=== PATIENT | male | born 1940 | race Caucasian/White ===

== ENCOUNTER 2017-02-20 06:52 | Inpatient (IN) | payer OTHER, MEDICARE ==
[~2017-02-20] VITALS: Ht 172.7 cm; Wt 89.8 kg
[~2017-02-20 06:52] MED LIST: AMLODIPINE BESY10 M1 PO; ASPIRIN CHILDRE81 MG PO; ASPIRIN81 M4 PO; AZOR 5 MG-20 MG1 TAB PO; BENICAR40 M1 PO; BRILINTA90 MG PO; CARDIZEM I125 MG/25 IV; CIPRO500 M1 PO; COREG3.125 MG PO; COREG6.25 M1 PO; COZAAR 25MG TAB25 MG PO; COZAAR100 M1 PO; FINASTERIDE5 M1 PO; FLOMAX0.4 M1 PO; HEPARIN 2525000 UNI1 IV; LASIX 100M100 MG/10 IV; LOPRESSOR 12.12.5 MG PO; PREDNISONE 10MG10 M1 PO; PROAIR HFA0.09 MG/Ac INH; PROSCAR5 M1 PO; SYMBICORT 160/41 PUF INH; TAMSULOSIN HCL0.4 M1 PO; VENTOLIN1 PUF INH
--- NOTE | 2017-02-20 07:20 | ED AMS/SEIZURE/WEAK/DIZZY ---
History of Present Illness General Chief Complaint: Fall Stated Complaint: BIBA FALL Source: patient, family, old records, EMS Exam Limitations: no limitations Vital Signs & Intake/Output Vital Signs & Intake/Output Vital Signs Date Time Temp Pulse Resp B/P B/P Pulse O2 O2 Flow FiO2 Mean Ox Delivery Rate 02/21 824 98.4 51 20 150/68 95 Nasal 2.0L Cannula 02/20 0741 95 Nasal 2.0L Cannula 02/20 0737 95 Nasal 2.0L Cannula 02/20 0654 97.8 55 20 156/74 100 Room Air Allergies Coded Allergies: shellfish derived (Severe, UNKNOWN 02/20/17) acetaminophen (From PERCOCET) (UNKNOWN 02/20/17) oxycodone (From PERCOCET) (UNKNOWN 02/20/17) Reconcile Medications Amlodipine Besylate 10 MG TABLET 1 TAB PO DAILY blood pressure (Reported) Aspirin (Aspirin*) 81 MG TAB.CHEW 1 TAB PO DAILY HEART HEALTH (Reported) Carvedilol 6.25 MG TABLET 1 TAB PO BID HEART (Reported) Docusate Sodium (Stool Softener) 100 MG CAPSULE 1 CAP PO DAILY PRN CONSTIPATION (Reported) Famotidine 20 MG TABLET 1 TAB PO BID PRN GI (Reported) Finasteride (Proscar) 5 MG TABLET 1 TAB PO DAILY prostate (Reported) Olmesartan Medoxomil (Benicar) 40 MG TABLET 1 TAB PO DAILY blood pressure ( Reported) Solifenacin Succinate (Vesicare) 5 MG TABLET 1 TAB PO DAILY BLADDER (Reported ) Tamsulosin HCl (Flomax) 0.4 MG CAP.ER.24H 1 CAP PO DAILY prostate (Reported) Umeclidinium Brm/Vilanterol Tr (Anoro Ellipta 62.5-25 Mcg INH) 62.5 MCG-25 MCG/ ACTUATION BLST.W.DEV 1 PUFF INH DAILY BREATHING PROBLEMS (Reported) Triage Note: PT BIBA FROM HOME C/O FALL. PER EMS PT AWOKE THIS MORNING WHILE GETTING OUT OF BED PT GRASPED ONTO HIS WALKER, FELT DIZZY, AND HAD A WITNESSED FALL. PER PTS WHO WITNESSED FALL -LOC, -BLOOD THINNERS. PT STATES HE HIT THE RIGHT SIDE OF HIS FACE ON THE DOOR WHILE LANDING ON RIGHT SIDE FROM FALL. PT A&OX3, PT ARRIVES WITH EXPIRATORY WHEEZING. Triage Nurses Notes Reviewed? yes HPI: Patient was getting out of bed and he grabbed his walker and then fell. Patient states that he hit his head on the door on the way down. There was no loss of consciousness. EMS states that the patient told them that he felt dizzy when he stood up. The patient currently adamantly denies. Patient states he just lost his balance when he stood up. Patient states that he is due for carotid endarterectomy next week. Patient had a CVA a month and a half ago. Patient has known ischemic cardiomyopathy. Patient denies any chest pain or palpitations. Patient states that he has been having increasing wheezing, shortness of breath and sputum production over the past 3 days. Patient denies fevers or chills. 02/20/17 0750: Patient son is currently at the bedside. Son states that his mother told him that the patient had fallen twice during the night prior to this fall this morning. He also states that he was seen by his doctor yesterday for the wheezing and was prescribed antibiotics but the patient did not pick them up. Son also states that because of the shortness of breath and wheezing his primary care physician was going to postpone the carotid endarterectomy. When asked this the patient stated that yes he fell a few times during the night and he did not think it was importance of did not want to tell us. Past History Travel History Traveled to [place] past 21 day No Medical History Any Pertinent Medical History? see below for history Neurological: NONE EENT: NONE Cardiovascular: hypertension, TRIPLE BYPASS SURGERY Respiratory: COPD, emphysema Gastrointestinal: NONE Hepatic: BILE DUCT CANCER Renal: NONE Musculoskeletal: NONE Psychiatric: NONE Endocrine: diabetes Blood Disorders: NONE Cancer(s): ca-cbd/liver...unsure PARER/Reproductive: NONE History of MRSA: No History of VRE: No History of CDIFF: No Surgical History Surgical History: non-contributory Psychosocial History Who do you live with Spouse Services at Home None What is your primary language Nepalese Tobacco Use: Quit >30 days ago ETOH Use: denies use Illicit Drug Use: denies illicit drug use Family History Family History, If Any: FATHER, , Age 60+; Cause: Gangrene of lower extremity. FH: diabetes mellitus Hx Contributory? No Review of Systems Review of Systems Constitutional: Reports: no symptoms. EENTM: Reports: no symptoms. Respiratory: Reports: see HPI, cough, short of breath, sputum production, wheezing. Cardiovascular: Reports: no symptoms. GI: Reports: no symptoms. Genitourinary: Reports: no symptoms. Musculoskeletal: Reports: no symptoms. Skin: Reports: no symptoms. Neurological/Psychological: Reports: no symptoms. Hematologic/Endocrine: Reports: no symptoms. Immunologic/Allergic: Reports: no symptoms. All Other Systems: Reviewed and Negative Physical Exam Physical Exam General Appearance: well developed/nourished, alert, awake Head: atraumatic, normal appearance Eyes: Bilateral: PERRL, EOMI. Ears, Nose, Throat: normal pharynx, normal ENT inspection, hearing grossly normal Neck: normal inspection, supple, full range of motion Respiratory: rhonchi, wheezing, respiratory distress Cardiovascular: regular rate/rhythm, normal peripheral pulses Gastrointestinal: normal bowel sounds, soft, non-tender, no organomegaly Back: normal inspection, normal range of motion Extremities: normal range of motion, pedal edema, PELVIS STABLE, FULL ROM OF HIPS Neurologic/Psych: no motor/sensory deficits, awake, alert, oriented x 3, normal mood/affect Skin: intact, normal color, warm/dry Lymphatic: no anterior cervical price Core Measures ACS in differential dx? Yes CVA/TIA Diagnosis No Sepsis Present: No Sepsis Focused Exam Completed? No Progress Differential Diagnosis: arrythmia, anemia, benign positional vertigo, CVA/stroke , drug intoxication, electrolyte imbalance, hypoxia, pneumonia, presyncope, UTI/ pyelo Plan of Care: Orders Procedure Date/time Status Heart Healthy Diet 02/20 L Active ED Holding Orders 02/20 09 Active Admit to inpatient 02/20 0911 Active Vital Signs 02/20 0911 Active Code Status 02/20 0911 Active AEROSOL (GEN) 02/20 0839 Complete Telemetry/Technical Assistance Consultant 02/20 0711 Active RAPID VIRAL INFLUENZA A 02/20 0711 Complete URINALYSIS 02/20 0711 Active TROPONIN LEVEL 02/20 0711 Complete COMPREHENSIVE METABOLIC PANEL 02/20 0711 Complete CBC WITHOUT DIFFERENTIAL 02/20 0711 Complete EKG 02/20 0653 Active Current Medications Sig/Shakir Start time Last Medication Dose Stop Time Status Admin Azithromycin 500 MG ONCE ONE 02/20 0915 UNVr (Zithromax) 02/20 1014 Sodium Chloride 250 ML (Normal Saline 0.9%) Ceftriaxone Sodium 1,000 MG ONCE ONE 01/03 0915 UNVr (Rocephin) 02/20 915 Laboratory Tests 02/20/17 0832: RBC 5.08, MCV 86.5, MCH 29.2, RDW 14.8 H, MPV 7.9, Gran % 76.5 H, Lymphocytes % 10.6 L, Monocytes % 10.4 H, Eosinophils % 2.1, Basophils % 0.4, Absolute Granulocytes 5.0, Absolute Lymphocytes 0.7 L, Absolute Monocytes 0.7 H, Absolute Eosinophils 0.1, Absolute Basophils 0, PUBS MCHC 33.8 02/20/17 0732: Anion Gap 15, Estimated GFR > 60, BUN/Creatinine Ratio 23.0, Glucose 139 H, Calcium 9.2, Total Bilirubin 1.0, AST 27, ALT 28, Alkaline Phosphatase 76, Troponin I 0.02, Total Protein 7.8, Albumin 4.0, Globulin 3.8, Albumin/Globulin Ratio 1.1 Microbiology 02/20 715 NASOPHARYN: Influenza Virus A & B Rapid Smear - COMP Diagnostic Imaging: Viewed by Me: Radiology Read. Discussed w/RAD: Radiology Read. CXR Impression: PATIENT: SANTO STODDARD PRESENT AGE: 76 PATIENT ACCOUNT NO: [id number] : 42 LOCATION: [facility] ORDERING PHYSICIAN: Nima Wyatt MD SERVICE DATE: 02/20/17 EXAM TYPE: RAD - XRY- PORTABLE CHEST XRAY EXAMINATION: XR PORTABLE CHEST CLINICAL INFORMATION: Productive cough COMPARISON: Multiple priors, most recent from 10/15/2016. TECHNIQUE: Portable frontal view of the chest was obtained. FINDINGS: Study is limited by patient body habitus. Similar prominence of the cardiomediastinal silhouette, in part accentuated by portable technique. There are postsurgical changes of median sternotomy and CABG. There are low lung volumes with hazy bibasilar opacities likely representing atelectasis. This is similar compared to prior. No new consolidative airspace opacity. No significant pleural effusion. No pneumothorax. Osseous structures are unremarkable as visualized. IMPRESSION: Low lung volumes without definite acute pulmonary disease. DICTATED BY: Susanne Em MD DATE/TIME DICTATED:02/20/17812 APPRENTICE/LINEMAN:WYATT DATE/ TIME TRANSCRIBED:02/20/17812 CONFIDENTIAL, DO NOT COPY WITHOUT APPROPRIATE AUTHORIZATION. <Electronically signed in Other Vendor System> SIGNED BY: Susanne Em MD 02/20/17 0820 Initial ED EKG: SR WITH ST DERPESSIONS AND T WAVE INVERSION IN ALL LEADS, THE ST DEPRESSIONS WERE SEEN IN THE PAST BUT THE T WAVE INVERSIONS ARE NEW. Prior EKG: changed Rhythm Strip: normal sinus rhythm Comments: D/W DR. STERN, HE WILL CONSULT. Departure Departure Disposition: STILL A PATIENT Condition: Guarded Clinical Impression Primary Impression: EKG abnormalities Secondary Impressions: Bronchitis Referrals: Gabriella Davenport MD (PCP/Family) Departure Forms: Customer Survey General Discharge Information Admission Note Spoke With: Remberto ALVAREZ,Janel Documentation of Exam: Documentation of any treatments & extenuating circumstances including Concerns Regarding Discharge (functional status, medication knowledge or non-compliance, living conditions, etc.) that warrant an admission rather than observation: [ ADMIT TO TELE FOR SERIAL ENZYMES, TELE MONITOIRNG, CARDIOLOGY CONSULTATION, IV ABX, NEBS, RESP TREATMENT] Critical Care Note Critical Care Note Critical Care Time: mins: (90 MIN)
[2017-02-20] MEDS ORDERED: STOOL SOFTENER100 M3 PO (07:51)
[2017-02-20] MEDS ORDERED: FAMOTIDINE20 M1 PO (07:52)
[2017-02-20] MEDS ORDERED: CARVEDILOL6.25 M1 PO (07:54)
[2017-02-20] MEDS ORDERED: VESICARE5 M1 PO (07:54)
[2017-02-20] MEDS ORDERED: ANORO ELLIPTA1 EACH INH (07:55)
--- NOTE | 2017-02-20 08:20 | RADIOLOGY REPORT ---
EXAMINATION: XR PORTABLE CHEST CLINICAL INFORMATION: Productive cough COMPARISON: Multiple priors, most recent from 10/15/2016. TECHNIQUE: Portable frontal view of the chest was obtained. FINDINGS: Study is limited by patient body habitus. Similar prominence of the cardiomediastinal silhouette, in part accentuated by portable technique. There are postsurgical changes of median sternotomy and CABG. There are low lung volumes with hazy bibasilar opacities likely representing atelectasis. This is similar compared to prior. No new consolidative airspace opacity. No significant pleural effusion. No pneumothorax. Osseous structures are unremarkable as visualized. IMPRESSION: Low lung volumes without definite acute pulmonary disease.
[2017-02-20 08:40] LABS: ABSOLUTE BASOPHIL COUNT 0 /CUMM (0.0-0.2); ABSOLUTE EOSINOPHIL COUNT 0.1 /CUMM (0.0-0.7); ABSOLUTE LYMPH COUNT 0.7 /CUMM (1.2-3.4); ABSOLUTE MONOCYTE COUNT 0.7 /CUMM (0.10-0.60); BASOPHIL % 0.4 % (0.0-2.0); EOSINOPHIL % 2.1 % (0-5); GRANULOCYTE % 76.5 % (42.2-75.2); MEAN CORPUSCULAR HGB 29.2 PG (27.0-31.0); MEAN CORPUSCULAR HGB CONC 33.8 G/DL (33.0-37.0); MEAN CORPUSCULAR VOLUME 86.5 FL (80.0-94.0); MEAN PLATELET VOLUME 7.9 FL (7.4-10.4); PLATELET COUNT 189 /CUMM (130-400); RBC DISTRIBUTION WIDTH 14.8 % (11.5-14.5); RED BLOOD CELL CT 5.08 /CUMM (4.70-6.10); WHITE BLOOD CELL COUNT 6.5 /CUMM (4.8-10.8)
--- NOTE | 2017-02-20 09:50 | History & Physical ---
Uche ALVAREZ,Theodore 02/20/17 0949: General Information and HPI MD Statement: I have seen and personally examined SANTO STODDARD and documented this H&P. The patient is a 76 year old M who presented with a patient stated chief complaint of FALL[]. Source of Information: patient, old records Exam Limitations: poor historian History of Present Illness: This is a 76-year-old male with past medical history significant for CVA about a month ago, ischemic cardiomyopathy, CAD status post CABG with triple vessel bypass, hypertension, COPD, cholangiocarcinoma status post to CBD stents, diabetes, BPH, A. fib status post maze procedure not on any anticoagulation, who comes in for chief complaint of fall. He was sent in by family who witnessed both falls. Patient is a poor historian so most of the history is obtained by speaking with the son. Apparently, patient fell last night onto his knees as he tried to get out of bed and use his walker. This a.m. he attempted to get out of bed again and once again, fell down but with head strike this time. Patient is unable to explain his fall other than, "I wanted to go one way but my legs went the other." Additionally, patient does complain of shortness of breath and wheezing over the past several days. He saw his PCP, Dr. Jordan alatorre at, yesterday and was told to picking belt operator antibiotics which he never filled. He states that his shortness of breath has been stable over the past several days. Previous admission significant for NSVT, and cholangitis. He states he is compliant with his medications. Patient denies any weight loss, fever, night sweats, change in vision, chest pain, palpitations, abdominal pain, nausea, vomiting, hematochezia, hematuria, LOC, CASTILLO, bladder or bowel incontinence. But he does endorse wheezing, short of breath, productive cough, weakness, and malaise. Regarding his recent CVA, he has some residual right-sided deficits. Per son, patient has significantly deteriorated since his stroke. Prior to CVA he was completely independent in ADL/IADL. Now he is falling more frequently and finding it hard to manage by himself. Note pt is scheduled for CEA with Dr. Dean sometime next week. Unsure of what % carotid stenosis as we do not have those records. Allergies/Medications Allergies: Coded Allergies: shellfish derived (Severe, UNKNOWN 02/20/17) acetaminophen (From PERCOCET) (UNKNOWN 02/20/17) oxycodone (From PERCOCET) (UNKNOWN 02/20/17) Home Med list Amlodipine Besylate 10 MG TABLET 1 TAB PO DAILY blood pressure (Reported) Aspirin (Aspirin*) 81 MG TAB.CHEW 1 TAB PO DAILY HEART HEALTH (Reported) Carvedilol 6.25 MG TABLET 1 TAB PO BID HEART (Reported) Docusate Sodium (Stool Softener) 100 MG CAPSULE 1 CAP PO DAILY PRN CONSTIPATION (Reported) Famotidine 20 MG TABLET 1 TAB PO BID PRN GI (Reported) Finasteride (Proscar) 5 MG TABLET 1 TAB PO DAILY prostate (Reported) Olmesartan Medoxomil (Benicar) 40 MG TABLET 1 TAB PO DAILY blood pressure ( Reported) Solifenacin Succinate (Vesicare) 5 MG TABLET 1 TAB PO DAILY BLADDER (Reported ) Tamsulosin HCl (Flomax) 0.4 MG CAP.ER.24H 1 CAP PO DAILY prostate (Reported) Umeclidinium Brm/Vilanterol Tr (Anoro Ellipta 62.5-25 Mcg INH) 62.5 MCG-25 MCG/ ACTUATION BLST.W.DEV 1 PUFF INH DAILY BREATHING PROBLEMS (Reported) Past History Travel History Traveled to [place] past 21 day No Medical History Neurological: NONE EENT: NONE Cardiovascular: hypertension, TRIPLE BYPASS SURGERY Respiratory: COPD, emphysema Gastrointestinal: NONE Hepatic: BILE DUCT CANCER Renal: NONE Musculoskeletal: NONE Psychiatric: NONE Endocrine: diabetes Blood Disorders: NONE Cancer(s): ca-cbd/liver...unsure 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 FH: diabetes mellitus Psychosocial History Services at Home: None Primary Language: Uzbek ETOH Use: denies use Illicit Drug Use: denies illicit drug use Living Will? Patient and son unsure, pt expressed Full code status Power of Plumbing Technician/HCP? yes Functional Ability ADLs Unknown: dressing, eating, toileting, bathing. Ambulation: walker IADLs Unknown: shopping, housework, finances, food prep, telephone, transportation, medication admin. Review of Systems Review of Systems Constitutional: Reports: see HPI. Exam & Diagnostic Data Last 24 Hrs of Vital Signs/I&O Vital Signs Date Time Temp Pulse Resp B/P B/P Pulse O2 O2 Flow FiO2 Mean Ox Delivery Rate 02/20 1624 58 152/74 02/20 1624 58 152/74 02/20 1624 58 152/74 02/20 1600 95 Nasal 2.0L Cannula 02/20 1452 Nasal 2.0L Cannula 02/20 1451 95 Nasal 2.0L Cannula 02/20 1417 99.2 60 18 150/70 93 Room Air 02/20 1335 96 Nasal 2.0L Cannula 02/20 1120 98.0 58 20 160/72 96 Nasal 2.0L Cannula 02/20 0958 97.9 62 19 171/77 94 Nasal 1.0L Cannula 02/20 0825 98.4 51 20 150/68 95 Nasal 2.0L Cannula 02/20 0741 95 Nasal 2.0L Cannula 02/20 0737 95 Nasal 2.0L Cannula 02/20 0654 97.8 55 20 156/74 100 Room Air Intake & Output 02/20 1600 02/20 0800 02/20 0000 Intake Total 450 Output Total 200 Balance 250 Intake, IV 250 Intake, Oral 200 Output, Urine 200 Patient 89.811 kg 89.811 kg Weight Weight Reported by Patient Measurement Method Physical Exam General Appearance Alert, Oriented X3, Cooperative, No Acute Distress Skin No Significant Lesion HEENT Atraumatic, PERRLA, EOMI, mucous membranes dry Neck Supple Cardiovascular Regular Rate Lungs diffusely wheezy, diminished air movement. Abdomen No Tenderness Neurological r.sided weakness Extremities No Edema, No Tenderness/Swelling Last 24 Hrs of Labs/Christiano: Laboratory Tests 02/20/17 1003: Urinalysis LIGHT H, Urine Color YEL, Urine Clarity HAZY H, Urine pH 6.0, Ur Specific [place] 1.025, Urine Protein TRACE H, Urine Ketones NEG, Urine Nitrite POS H, Urine Bilirubin NEG, Urine Urobilinogen 0.2, Ur Leukocyte Esterase SMALL H, Ur Microscopic SEDIMENT EXAMINED, Urine RBC 1-3, Urine WBC 25-50 H, Ur Epithelial Cells RARE, Urine Bacteria MANY H, Granular Casts RARE H, Urine Mucus FEW, Urine Hemoglobin SMALL H, Urine Glucose NEG 02/20/17 0832: RBC 5.08, MCV 86.5, MCH 29.2, RDW 14.8 H, MPV 7.9, Gran % 76.5 H, Lymphocytes % 10.6 L, Monocytes % 10.4 H, Eosinophils % 2.1, Basophils % 0.4, Absolute Granulocytes 5.0, Absolute Lymphocytes 0.7 L, Absolute Monocytes 0.7 H, Absolute Eosinophils 0.1, Absolute Basophils 0, PUBS MCHC 33.8 02/20/17 0732: Anion Gap 15, Estimated GFR > 60, BUN/Creatinine Ratio 23.0, Glucose 139 H, Calcium 9.2, Total Bilirubin 1.0, AST 27, ALT 28, Alkaline Phosphatase 76, Troponin I 0.02, Total Protein 7.8, Albumin 4.0, Globulin 3.8, Albumin/Globulin Ratio 1.1 Microbiology 02/20 715 NASABDULAZIZMAMMOTHN: Influenza Virus A & B Rapid Smear - COMP Assessment/Plan Assessment: Assessment: This is a 76-year-old male with past medical history significant for CVA about a month ago, ischemic cardiomyopathy, CAD status post CABG with triple vessel bypass, hypertension, COPD, cholangiocarcinoma status post to CBD stents, diabetes, BPH, A. fib status post maze procedure not on any anticoagulation, who comes in for chief complaint of fall. Given significant cardiac hs and new EKG changes along with significant neurologic history will admit pt for further work up of etiology of fall and SOB. Admit to the telemetry service for further work up. ------- PLAN: 1. Fall/gait instability: If neurologic deterioration will consider getting neurology consult. However at this time, patient has stable neurologic exam with no new acute findings. * Physical therapy consult and evaluation * Obtain neuro records from [facility] * Orthostatics * Serial neuro exams * CT of the head to rule out bleed 2. Nonspecific EKG changes. Troponin 1 is negative. * Appreciate cardiology consult 3. Shortness of breath: Chest x-ray shows hazy bibasilar opacities, and low lung volumes without definite acute pulmonary disease. Flu swab was negative. Patient does have a history of COPD. He is a former smoker with a 2 pack per day habit but quit 30 years ago. On physical exam he is diffusely wheezy with diminished air movement. * He got 1 dose of azithromycin ceftriaxone for treatment of pneumonia in ED * Stop antibiotics for pneumonia as patient is afebrile with no white count * Start Solu-Medrol 40 g every 12 * Start azithromycin for anti-inflammatory effect 4. Hypertension: Patient had blood pressure 150/68 and subsequently 171/77. He was noted to be bradycardic with heart rate down to 50. * Continue amlodipine 10 mg * Continue carvedilol 6.25, with hold parameters for heart rate 5. BPH * Continue Benicar, Vesicare and Flomax Patient is DNR and DNI. I have informed son that the patient was AO x3 and capable of decision making. We will respect his code status wishes. But if family were to have discussion and pt were to change his mind, he will inform his team of such. As Ranked By This Provider Problem List: 1. Diabetes 2. Hypertension 3. COPD (chronic obstructive pulmonary disease) Core Measures/Misc (11/04) Acute Coronary Syndrome ACS Diagnosis: No Congestive Heart Failure Congestive Heart Failure Diagnosis No Cerebrovascular Accident CVA/TIA Diagnosis: No VTE (View Protocol) VTE Risk Factors Acute Medical Illness No Mechanical VTE Prophylaxis d/t N/A MechProphylax Ordered No VTE Pharm Prophylaxis d/t NA PharmProphylax ordered Sepsis (View protocol) Sepsis Present: No Rula Krause MD 02/20/17 1505: Attending Review Statement Attending Statement Attending MD Statement: examined this patient, discuss w/resident/PA/BROADCAST CHIEF ENGINEER, agreed w/resident/PA/BROADCAST CHIEF ENGINEER, reviewed EMR data (avail), discussed with nursing, discussed with case mgmt, amended to note Attending Assessment/Plan: 76-year-old male with history of diabetes mellitus, coronary artery disease, cholangiocarcinoma status post abnormal bile duct stent placement, atrial fibrillation multiple anticoagulation, COPD and diabetes mellitus. Presents status post fall. Patient is unclear regarding circumstances surrounding the fall. He is unable to provide a clear history. In the emergency room he was found to have abnormal EKG and was referred to the inpatient medical service for further evaluation. Also pertinent patient's history is recent stroke with residual right-sided weakness. During that episode he was found to have bilateral carotid artery disease and is actually scheduled to undergo carotid endarterectomy next month. He recently developed upper respiratory infection symptoms and antibiotic therapy was prescribed by his primary care provider. He is yet to picking belt operator his antibiotics. On examination he is lying comfortably in bed and not in any acute distress. Heart sounds are regular with no audible murmur. He has diffuse rhonchi bilaterally. Abdomen is soft and nontender with normal bowel sounds He has no peripheral edema Skin is intact with no rashes He is alert and oriented 3. Power is 5 over 5 in the left upper and lower extremities. Power is 4 over 5 in the right upper and lower extremities. Problems: 1. Unwitnessed fall; probably mechanical following his recent stroke however given his history of nonsustained ventricular tachycardia is arrhythmias will have to be ruled out as an etiology. 2. Abnormal EKG 3. Stroke with residual right-sided weakness 4. Bilateral carotid artery disease 5. COPD exacerbation Plan: -Admit to the inpatient medical service for further management. -Telemetry monitoring to rule out arrhythmia -Obtain records of recent echocardiogram and other testing done following his recent hospitalization -Cardiology service consultation. -Continue aspirin. He should be on statin therapy. -Please notify the vascular surgery service of patient's admission. Surgical intervention will be deferred until he has been cleared by the cardiology service. -Begin patient on bronchodilator therapy. Begin patient on systemic steroid therapy with Solu-Medrol 40 mg IV every 12 hours. Begin patient on azithromycin for anti-inflammatory properties. -Chemical DVT prophylaxis.
--- NOTE | 2017-02-20 13:10 | CT SCAN REPORT ---
EXAMINATION: CT HEAD WITHOUT CONTRAST CLINICAL INFORMATION: Status post fall. Confusion. COMPARISON: 10/11/2016 TECHNIQUE: Contiguous axial imaging was performed from the skull base to vertex without intravenous administration of contrast. DLP: 620 mGy-cm FINDINGS: There is no evidence of acute intracranial hemorrhage. No abnormal mass effect or midline shift is seen. Arshad to white matter differentiation is well preserved. No extra-axial fluid collections are identified. There is mild generalized prominence of the ventricles, sulci, and extra-axial CSF spaces and mild hypoattenuation in the bihemispheric white matter. There is a new oval focus of hypoattenuation within the left frontal deep white matter measuring approximately 9 mm which is suspected to reflect an interval lacunar infarct, age indeterminate. There is also a new small area of hypoattenuation in the cortex of the high left frontal lobe, inclusive of a small portion of the prefrontal cortex. Small chronic lacunar infarcts within the left thalamus and right frontal white matter are stable. No acute osseous abnormality. There is a stable lucent lesion in the left frontal bone with thinning of the outer table and dehiscence of the inner table. There is mild mucosal thickening within the ethmoid air cells and some soft tissue fullness in the posterosuperior right nasal cavity, also likely inflammatory in etiology, new from the prior. The mastoid air cells are clear. IMPRESSION: There are small areas of hypoattenuation within the left frontal lobe, which have developed in the interval since 10/11/2016, suspicious for small left MCA territory infarcts, age indeterminate. MRI would be more sensitive in the detection of acute brain ischemia. No hemorrhage.
[2017-02-20 14:17] VITALS: BP 150/70
--- NOTE | 2017-02-20 15:56 | Cons- Cardiology ---
General Information and HPI Consulting Request Date of Consult: 02/20/17 Requested By: Rula Krause MD Reason for Consult: Abnormal EKG Source of Information: patient, old records Exam Limitations: confusion, poor historian History of Present Illness: The patient is a 76-year-old gentleman with a past medical history of coronary artery disease, diabetes mellitus, atrial fibrillation (on anticoagulation), COPD and a cholangiocarcinoma. He presented to our emergency room with a fall, secondary to a stated mechanical etiology; however, this is unclear due to the patient's historian capabilities. He was noted to have new T-wave inversions on EKG. 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 He was noted to have bilateral carotid artery disease and is scheduled to undergo an endarterectomy upcoming. He states he suffered a fall while attempting to reach for his walker and arising from bed. There was no prodrome of chest pain nor palpitations. There was mild dizziness when attempting to arise from his fall. The patient as well states having mild increased dyspnea as well as a nonproductive cough over the past several days. This was addressed by his primary care physician who prescribed antibiotics; however, the patient did not initiate the same. On arrival to the emergency room, he was noted to have new T-wave inversions over, was asymptomatic for chest pains. Allergies/Medications Allergies: Coded Allergies: shellfish derived (Severe, UNKNOWN 02/20/17) acetaminophen (From PERCOCET) (UNKNOWN 02/20/17) oxycodone (From PERCOCET) (UNKNOWN 02/20/17) Home Med List: Amlodipine Besylate 10 MG TABLET 1 TAB PO DAILY blood pressure (Reported) Aspirin (Aspirin*) 81 MG TAB.CHEW 1 TAB PO DAILY HEART HEALTH (Reported) Carvedilol 6.25 MG TABLET 1 TAB PO BID HEART (Reported) Docusate Sodium (Stool Softener) 100 MG CAPSULE 1 CAP PO DAILY PRN CONSTIPATION (Reported) Famotidine 20 MG TABLET 1 TAB PO BID PRN GI (Reported) Finasteride (Proscar) 5 MG TABLET 1 TAB PO DAILY prostate (Reported) Olmesartan Medoxomil (Benicar) 40 MG TABLET 1 TAB PO DAILY blood pressure ( Reported) Solifenacin Succinate (Vesicare) 5 MG TABLET 1 TAB PO DAILY BLADDER (Reported ) Tamsulosin HCl (Flomax) 0.4 MG CAP.ER.24H 1 CAP PO DAILY prostate (Reported) Umeclidinium Brm/Vilanterol Tr (Anoro Ellipta 62.5-25 Mcg INH) 62.5 MCG-25 MCG/ ACTUATION BLST.W.DEV 1 PUFF INH DAILY BREATHING PROBLEMS (Reported) Current Medications: Current Medications Sig/Shakir Start time Last Medication Dose Route Stop Time Status Admin Acetaminophen 650 MG Q6P PRN 02/20 1230 AC PO Albuterol Sulfate 3 ML BID 02/20 2200 AC INH Albuterol Sulfate 3 ML ONCE ONE 02/20 0830 DC 02/20 INH 02/20 0831 0838 Albuterol Sulfate 3 ML ONCE ONE 02/20 0715 DC 02/20 INH 02/20 0716 0724 Amlodipine Besylate 10 MG DAILY 02/21 1000 AC PO Aspirin 81 MG DAILY 02/20 1235 AC PO Azithromycin 500 MG DAILY 02/21 1000 AC Sodium Chloride 250 ML IV Azithromycin 500 MG ONCE ONE 02/20 0915 DC 02/20 Sodium Chloride 250 ML IV 02/20 1014 0920 Carvedilol 6.25 MG BID 02/20 1238 AC PO Ceftriaxone Sodium 0 .STK-MED ONE 02/20 0920 DC .ROUTE Ceftriaxone Sodium 1,000 MG ONCE ONE 02/20 0915 DC 02/20 IV 02/20 0916 0920 Docusate Sodium 100 MG DAILY NEEDED PRN 02/20 1245 AC PO Enoxaparin Sodium 40 MG DAILY 02/20 1233 AC SC Famotidine 20 MG BID PRN 02/20 1245 AC PO Finasteride 5 MG DAILY 02/20 1238 AC PO Ibuprofen 600 MG Q6P PRN 02/20 1230 AC PO Ipratropium [place] 2.5 ML BID 02/20 2200 AC INH Ipratropium [place] 2.5 ML ONCE ONE 02/20 0715 DC 02/20 INH 02/20 0716 0724 Losartan Potassium 100 MG DAILY 02/20 1239 AC PO Methylprednisolone 40 MG Q12 02/20 1530 AC IV Oxybutynin Chloride 2.5 MG BID 02/20 1239 AC PO Oxycodone/ 2 TAB Q6P PRN 02/20 1230 CAN Acetaminophen PO Tamsulosin HCl 0.4 MG DAILY 02/20 1239 AC PO Review of Systems Review of Systems: The review of systems is negative for chest pains, palpitations nor lightheadedness. The remainder of the 14 point review of systems is noncontributory with the exception of above. 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 FH: diabetes mellitus Psychosocial History Where Do You Live? Home Services at Home: None Primary Language: Japanese Smoking Status: Former Smoker ETOH Use: denies use Illicit Drug Use: denies illicit drug use Living Will? Patient and son unsure, pt expressed Full code status Power of Record Keeper/HCP? yes Exam & Diagnostic Data Vital Signs and I&O Vital Signs Date Time Temp Pulse Resp B/P B/P Pulse O2 O2 Flow FiO2 Mean Ox Delivery Rate 02/20 1452 Nasal 2.0L Cannula 02/20 1451 95 Nasal 2.0L Cannula 02/20 1417 99.2 60 18 150/70 93 Room Air 02/20 1335 96 Nasal 2.0L Cannula 02/20 1120 98.0 58 20 160/72 96 Nasal 2.0L Cannula 02/20 0958 97.9 62 19 171/77 94 Nasal 1.0L Cannula 02/20 0825 98.4 51 20 150/68 95 Nasal 2.0L Cannula 02/20 0741 95 Nasal 2.0L Cannula 02/20 0737 95 Nasal 2.0L Cannula 02/20 0654 97.8 55 20 156/74 100 Room Air Intake & Output 02/20 1600 02/20 0800 02/20 0000 02/19 1600 02/19 0800 02/19 0000 Intake Total 450 Output Total 200 Balance 250 Intake, IV 250 Intake, Oral 200 Output, Urine 200 Patient 198 lb 198 lb Weight Weight Reported by Patient Measurement Method Physical Exam: General: Nontoxic, no apparent distress. HEENT: Sclera and conjunctiva within normal limits, without xanthelasmas. Neck: Carotids 2+ without bruits. Respiratory: Scattered rhonchi, air movement is good, without accessory respiratory muscle use. Heart: Regular rate and rhythm, without murmurs, without JVD. Abdomen: Soft, nontender, no masses, normoactive bowel sounds. Extremities: Without clubbing, cyanosis, without edema. Neuro: Mild right-sided weakness Skin: Within normal limits without lesions. Psych: Mood and affect: Normal Labs/Christiano Results: Laboratory Tests 02/20 02/20 02/20 1003 0832 0732 Chemistry Sodium (137 - 145 mmol/L) 142 Potassium (3.5 - 5.1 mmol/L) 4.7 Chloride (98 - 107 mmol/L) 108 H Carbon Dioxide (22 - 30 mmol/L) 19 L Anion Gap (5 - 16) 15 BUN (9 - 20 mg/dL) 23 H Creatinine (0.7 - 1.2 mg/dL) 1.0 Estimated GFR (>60 ml/min) > 60 BUN/Creatinine Ratio (7 - 25 %) 23.0 Glucose (65 - 99 mg/dL) 139 H Calcium (8.4 - 10.2 mg/dL) 9.2 Total Bilirubin (0.2 - 1.3 mg/dL) 1.0 AST (17 - 59 U/L) 27 ALT (21 - 72 U/L) 28 Alkaline Phosphatase (< 127 U/L) 76 Troponin I (<0.11 ng/ml) 0.02 Total Protein (6.3 - 8.2 g/dL) 7.8 Albumin (3.5 - 5.0 g/dL) 4.0 Globulin (1.9 - 4.2 gm/dL) 3.8 Albumin/Globulin Ratio (1.1 - 2.2 %) 1.1 Hematology WBC (4.8 - 10.8 /CUMM) 6.5 RBC (4.70 - 6.10 /CUMM) 5.08 Hgb (14.0 - 18.0 G/DL) 14.9 Hct (42 - 52 %) 44.0 MCV (80.0 - 94.0 FL) 86.5 MCH (27.0 - 31.0 PG) 29.2 RDW (11.5 - 14.5 %) 14.8 H Plt Count (130 - 400 /CUMM) 189 MPV (7.4 - 10.4 FL) 7.9 Gran % (42.2 - 75.2 %) 76.5 H Lymphocytes % (20.5 - 51.1 %) 10.6 L Monocytes % (1.7 - 9.3 %) 10.4 H Eosinophils % (0 - 5 %) 2.1 Basophils % (0.0 - 2.0 %) 0.4 Absolute Granulocytes (1.4 - 6.5 /CUMM) 5.0 Absolute Lymphocytes (1.2 - 3.4 /CUMM) 0.7 L Absolute Monocytes (0.10 - 0.60 /CUMM) 0.7 H Absolute Eosinophils (0.0 - 0.7 /CUMM) 0.1 Absolute Basophils (0.0 - 0.2 /CUMM) 0 PUBS MCHC (33.0 - 37.0 G/DL) 33.8 Urines Urinalysis LIGHT H Urine Color (YEL,AMB,STR) YEL Urine Clarity (CLEAR) HAZY H Urine pH (5.0 - 8.0) 6.0 Ur Specific [place] (1.001 - 1.035) 1.025 Urine Protein (NEG,<30 MG/DL) TRACE H Urine Ketones (NEG) NEG Urine Nitrite (NEG) POS H Urine Bilirubin (NEG) NEG Urine Urobilinogen (0.1 - 1.0 EU/dl) 0.2 Ur Leukocyte Esterase (NEG) SMALL H Ur Microscopic SEDIMENT EXAMINED Urine RBC (0 - 5 /HPF) 1-3 Urine WBC (0 - 2 /HPF) 25-50 H Ur Epithelial Cells (NONE,FEW) RARE Urine Bacteria (NEG/NONE) MANY H Granular Casts (NONE /LPF) RARE H Urine Mucus (FEW,NONE) FEW Urine Hemoglobin (NEG) SMALL H Urine Glucose (N MG/DL) NEG Assessment/Plan Assessment/Plan 76-year-old gentleman with a past medical history of coronary artery disease, diabetes mellitus, atrial fibrillation (on anticoagulation), COPD and a cholangiocarcinoma. He presented to our emergency room with a fall, secondary to a stated mechanical etiology; however, this is unclear due to the patient's historian capabilities. He was noted to have new T-wave inversions on EKG. Abnormal EKG: The patient is asymptomatic from a cardiac standpoint, and initial troponin isoenzyme is negative. A previous echocardiogram performed in September 2016 demonstrated an overall normal LV systolic function. We will repeat an echocardiogram and compare wall motion. The EKG abnormality may be secondary to his recent [place] [employer] events; however, is nonspecific. Fall: The etiology appears secondary to mechanical process; however, given his atrial fibrillation and anticoagulation, further assessment by physical therapy will be necessary. Peripheral (carotid) vascular disease: Plan surgical repair of the same should proceed. Thank you for allowing us to participate in the care of your patient. Please do not hesitate to contact us further with any questions. Sincerely, Rui Boogie MD [facility] Consult Acknowledgment - Thank you for your consult request.
[2017-02-20 22:11] VITALS: BP 122/60
[2017-02-21 06:57] VITALS: BP 140/60
--- NOTE | 2017-02-21 10:10 | PN- Housestaff ---
Orly Coburn 02/21/17 1010: Subjective Follow-up For: Unwitnessed fall Recent CVA with worsening of Rt sided weakness COPD exacerbation. Subjective: Patient was seen and examined. He noticed that his Rt sided weakness is worsening. Denies SOB, CP, N/V/Abd pain. VSS No events reported. Review of Systems Constitutional: Denies: see HPI. Objective Last 24 Hrs of Vital Signs/I&O Vital Signs Date Time Temp Pulse Resp B/P B/P Pulse O2 O2 Flow FiO2 Mean Ox Delivery Rate 02/21 1532 98.2 75 18 110/40 90 02/21 1033 64 150/70 02/21 1033 64 150/70 02/21 1033 64 150/70 02/21 1033 64 150/70 02/21 0949 98 Nasal 2.0L Cannula 02/21 0800 97 Nasal 2.0L Cannula 02/21 0657 98.6 55 18 140/60 97 Nasal Cannula 02/21 0000 Nasal 2.0L Cannula 02/20 2259 62 122/60 02/20 2211 99.4 62 18 122/60 95 Nasal Cannula Intake & Output 02/21 1600 02/21 0800 02/21 0000 Intake Total 720 110 464 Output Total 200 300 Balance 520 110 164 Intake, IV 10 4 Intake, Oral 720 100 460 Number 0 Bowel Movements Output, Urine 200 300 Physical Exam General Appearance: Alert, Cooperative, No Acute Distress Skin: No Rashes HEENT: Atraumatic, PERRLA, EOMI, Mucous Membr. moist/pink Neck: Supple, No JVD, No thryomegaly, No LAD, slight carotid bruits b/l Lymphatic: Cervical nl Cardiovascular: Regular Rate, Normal S1, Normal S2, No Murmurs, Gallops, Rubs Lungs: Clear to Auscultation, Normal Air Movement Neurological: Normal Speech, Normal Tone, Sensation Intact, Cranial Nerves 3-12 NL, Reflexes 2+, decreased hand patent law specialist on Rt side compared to left. Otherwise strength and ROM intact Extremities: No Clubbing, No Cyanosis, No Edema, Normal Pulses, No Tenderness/ Swelling Vascular: Normal Pulses, Pulses Symmetrical Current Medications: Current Medications Sig/Shakir Start time Last Medication Dose Route Stop Time Status Admin Acetaminophen 650 MG Q6P PRN 02/20 1230 AC PO Albuterol Sulfate 3 ML BID 02/20 2200 AC 02/21 INH 2045 Amlodipine Besylate 10 MG DAILY 02/21 1000 AC 02/21 PO 1033 Aspirin 81 MG DAILY 02/20 1235 AC 02/21 PO 1033 Atorvastatin Calcium 80 MG 1700 02/21 1700 AC PO Azithromycin 500 MG DAILY 02/21 1000 AC 02/21 Sodium Chloride 250 ML IV 1032 Carvedilol 6.25 MG BID 02/20 1238 AC 02/21 PO 1033 Clopidogrel Bisulfate 75 MG DAILY 02/21 1410 AC PO Docusate Sodium 100 MG DAILY NEEDED PRN 02/20 1245 AC PO Enoxaparin Sodium 40 MG DAILY 02/20 1233 AC 02/21 SC 1313 Famotidine 20 MG BID PRN 02/20 1245 AC 02/20 PO 1625 Finasteride 5 MG DAILY 02/20 1238 AC 02/21 PO 1033 Ibuprofen 600 MG Q6P PRN 02/20 1230 AC PO Insulin Aspart 0 TIDAC 02/21 0800 AC 02/21 SC 1700 Insulin Aspart 6 UNITS ONCE ONE 02/20 2230 DC 02/20 SC 02/20 2231 2246 Ipratropium [place] 2.5 ML BID 02/20 2200 AC 02/21 INH 2045 Losartan Potassium 100 MG DAILY 02/20 1239 AC 02/21 PO 1033 Methylprednisolone 40 MG Q12 02/20 1530 AC 02/21 IV 1033 Oxybutynin Chloride 2.5 MG BID 02/20 1239 AC 02/21 PO 1033 Tamsulosin HCl 0.4 MG DAILY 02/20 1239 AC 02/21 PO 1033 Assessment/Plan Assessment: This is a 76-year-old male with past medical history significant for 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 fib status post maze procedure not on any anticoagulation, who comes in for chief complaint of fall. Problem list/Plan: #Fall/gait instability: * Physical therapy consult and evaluation * Obtain neuro records from [place] * Orthostatics * Serial neuro exams * CT of the head to rule out bleed * Worsening of Rt sided weakness noted. MRI, MRA head/neck ordered. * MRI reveals subacute infarct in Lt thalamus; unclear if it is new finding given his recent h/o CVA. Will obtain records to compare. * Meanwhile neurology consult was called. Neurologist Dr. Mtz spoke w/attending Dr. Krause ane recommended adding plavix. * Will add a statin. * MRA positive for Focal severe stenosis involving the proximal right internal carotid artery. Focal moderate to high-grade stenosis involving the proximal left internal carotid artery. Focal moderate or high-grade stenosis at the origin of the dominant left vertebral artery. * Vascular follow up for carotid artery disease #Nonspecific EKG changes. Troponin 1 is negative. * cardiology consult appreciated; awaiting echo #Shortness of breath: Chest x-ray shows hazy bibasilar opacities, and low lung volumes without definite acute pulmonary disease. Flu swab was negative. Patient does have a history of COPD. He is a former smoker with a 2 pack per day habit but quit 30 years ago. On physical exam he is diffusely wheezy with diminished air movement. * He got 1 dose of azithromycin ceftriaxone for treatment of pneumonia in ED * Follow off antibiotics for pneumonia as patient is afebrile with no white count * Start Solu-Medrol 40 g every 12 * Start azithromycin for anti-inflammatory effect #Hypertension: Patient had blood pressure 150/68 and subsequently 171/77. He was noted to be bradycardic with heart rate down to 50. * Continue amlodipine 10 mg * Continue carvedilol 6.25, with hold parameters for heart rate #BPH * Continue Benicar, Vesicare and Flomax #Patient is DNR and DNI. Problem List: 1. COPD (chronic obstructive pulmonary disease) 2. Fall 3. Bronchitis 4. COPD exacerbation Pain Ratin Pain Location: NA Pain Goal: Remain pain free Pain Plan: NA Tomorrow's Labs & Rationales: None Rula Krause MD 02/21/17 1043: Attending Review Statement Attending Statement Attending MD Statement: examined this patient, discuss w/resident/PA/HOUSEHOLD APPLIANCE MECHANIC, agreed w/resident/PA/HOUSEHOLD APPLIANCE MECHANIC, reviewed EMR data (avail), discussed with nursing, discussed with case mgmt, amended to note Attending Assessment/Plan: Patient seen and examined. Resting comfortably not in acute distress. No issues overnight. On telemetry he was occasionally bradycardic. Patient denies chest pain or shortness of breath. Denies palpitations. Nursing staff reports that patient is extremely weak today requiring 2 person assist. Patient reports that even after a stroke he has been able to relate freely with her use of an assistive device. He states that he has not been able to drive following the stroke. On examination today he is alert and oriented 3. Not in any acute distress. Apparently means 4 5 in the right upper extreme is compared to yesterday. Apparently the right lower extremity today appears somewhat decreased. I would rated at best 3/5 today compared to 4/[address] was done yesterday and showed interval development of small left MCA territory infarct. This is likely due to his recent stroke. Problems 1. Unwitnessed fall 2. Recent stroke with worsening neurologic deficit. 3. Abnormal EKG; nonspecific 4. Bilateral carotid artery disease 5. COPD exacerbation. Recommendations: -Physical therapy services found patient to be significantly below his baseline.This raises concern for progression of his stroke , low flow state versus physical deconditioning. -Obtain MRI of the head. Also obtain MRA head and neck as well. Obtain previous records for comparison. -Neurology consultation. -Vascular surgery consultation. Patient may benefit from undergoing his carotid enterectomy sooner rather than later. -Continue aspirin and high dose statin therapy. -Continue bronchodilator therapy. His lungs sound clear to auscultation today. Continue Solu-Medrol at current dose and transition to oral prednisone tomorrow. Continue azithromycin. -Obtain swallow evaluation.
--- NOTE | 2017-02-21 12:32 | PN- Cardiology ---
Subjective Subjective: Telemetry reviewed. Sinus rhythm throughout. Patient just returned from MRI. Objective Vital Signs and I&Os Vital Signs Date Time Temp Pulse Resp B/P B/P Pulse O2 O2 Flow FiO2 Mean Ox Delivery Rate 02/21 1033 64 150/70 02/21 1033 64 150/70 02/21 1033 64 150/70 02/21 1033 64 150/70 02/21 0949 98 Nasal 2.0L Cannula 02/21 0800 97 Nasal 2.0L Cannula 02/21 0657 98.6 55 18 140/60 97 Nasal Cannula 02/21 0000 Nasal 2.0L Cannula 02/20 2259 62 122/60 02/20 2211 99.4 62 18 122/60 95 Nasal Cannula 02/20 2010 94 Nasal 2.0L Cannula 02/20 1624 58 152/74 02/20 1624 58 152/74 02/20 1624 58 152/74 02/20 1600 95 Nasal 2.0L Cannula 02/20 1452 Nasal 2.0L Cannula 02/20 1451 95 Nasal 2.0L Cannula 02/20 1417 99.2 60 18 150/70 93 Room Air 02/20 1335 96 Nasal 2.0L Cannula Intake & Output 02/21 1600 02/21 0800 02/21 0000 02/20 1600 02/20 0800 02/20 0000 Intake Total 110 464 450 Output Total 300 200 Balance 110 164 250 Intake, IV 10 4 250 Intake, Oral 100 460 200 Output, Urine 300 200 Patient 198 lb 198 lb Weight Weight Reported by Patient Measurement Method Physical Exam: Gen. exam patient appeared comfortable. Some dysarthria. Head normocephalic atraumatic Eyes sclera anicteric conjunctiva showed no pallor extraocular muscles were normal Neck faint left carotid bruit. No jugular venous distention no palpable masses Chest lungs were clear bilaterally Heart regular rhythm 1/6 systolic murmur Abdomen soft no organomegaly bowel sounds normal Extremities no clubbing cyanosis or edema Neurologic right-sided hemiparesis. Current Medications: Current Medications Sig/Shakir Start time Last Medication Dose Route Stop Time Status Admin Acetaminophen 650 MG Q6P PRN 02/20 1230 AC PO Albuterol Sulfate 3 ML BID 02/20 2200 AC 02/21 INH 0942 Amlodipine Besylate 10 MG DAILY 02/21 1000 AC 02/21 PO 1033 Aspirin 81 MG DAILY 02/20 1235 AC 02/21 PO 1033 Azithromycin 500 MG DAILY 02/21 1000 AC 02/21 Sodium Chloride 250 ML IV 1032 Carvedilol 6.25 MG BID 02/20 1238 AC 02/21 PO 1033 Docusate Sodium 100 MG DAILY NEEDED PRN 02/20 1245 AC PO Enoxaparin Sodium 40 MG DAILY 02/20 1233 AC 02/20 SC 1618 Famotidine 20 MG BID PRN 02/20 1245 AC 02/20 PO 1625 Finasteride 5 MG DAILY 02/20 1238 AC 02/21 PO 1033 Ibuprofen 600 MG Q6P PRN 02/20 1230 AC PO Insulin Aspart 0 TIDAC 02/21 0800 AC 02/21 SC 0813 Insulin Aspart 6 UNITS ONCE ONE 02/20 2230 DC 02/20 SC 02/20 2231 2246 Ipratropium [place] 2.5 ML BID 02/20 2200 AC 02/21 INH 0942 Losartan Potassium 100 MG DAILY 02/20 1239 AC 02/21 PO 1033 Methylprednisolone 40 MG Q12 02/20 1530 AC 02/21 IV 1033 Oxybutynin Chloride 2.5 MG BID 02/20 1239 AC 02/21 PO 1033 Oxycodone/ 2 TAB Q6P PRN 02/20 1230 CAN Acetaminophen PO Tamsulosin HCl 0.4 MG DAILY 02/20 1239 AC 02/21 PO 1033 Results Last 48 Hrs of Labs/Mics: Laboratory Tests 02/20/17 1003: Urinalysis LIGHT H, Urine Color YEL, Urine Clarity HAZY H, Urine pH 6.0, Ur Specific [place] 1.025, Urine Protein TRACE H, Urine Ketones NEG, Urine Nitrite POS H, Urine Bilirubin NEG, Urine Urobilinogen 0.2, Ur Leukocyte Esterase SMALL H, Ur Microscopic SEDIMENT EXAMINED, Urine RBC 1-3, Urine WBC 25-50 H, Ur Epithelial Cells RARE, Urine Bacteria MANY H, Granular Casts RARE H, Urine Mucus FEW, Urine Hemoglobin SMALL H, Urine Glucose NEG 02/20/17 0832: RBC 5.08, MCV 86.5, MCH 29.2, RDW 14.8 H, MPV 7.9, Gran % 76.5 H, Lymphocytes % 10.6 L, Monocytes % 10.4 H, Eosinophils % 2.1, Basophils % 0.4, Absolute Granulocytes 5.0, Absolute Lymphocytes 0.7 L, Absolute Monocytes 0.7 H, Absolute Eosinophils 0.1, Absolute Basophils 0, PUBS MCHC 33.8 02/20/17 0732: Anion Gap 15, Estimated GFR > 60, BUN/Creatinine Ratio 23.0, Glucose 139 H, Calcium 9.2, Total Bilirubin 1.0, AST 27, ALT 28, Alkaline Phosphatase 76, Troponin I 0.02, Total Protein 7.8, Albumin 4.0, Globulin 3.8, Albumin/Globulin Ratio 1.1 Microbiology 02/20 715 NASABDULAZIZARYN: Influenza Virus A & B Rapid Smear - COMP Assessment/Plan Assessment/Plan he patient is a 76-year-old gentleman with a past medical history of coronary artery disease, with coronary artery bypass graft surgery diabetes mellitus, atrial fibrillation (on anticoagulation), COPD and a cholangiocarcinoma. He presented to our emergency room with a fall, secondary to a stated mechanical etiology; however, this is unclear due to the patient's historian capabilities. He was noted to have new T-wave inversions on EKG. 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 He was noted to have bilateral carotid artery disease and is scheduled to undergo an endarterectomy upcoming. He states he suffered a fall while attempting to reach for his walker and arising from bed. There was no prodrome of chest pain nor palpitations. There was mild dizziness when attempting to arise from his fall. The patient as well states having mild increased dyspnea as well as a nonproductive cough over the past several days. This was addressed by his primary care physician who prescribed antibiotics; however, the patient did not initiate the same. On arrival to the emergency room, he was noted to have new T-wave inversions over, was asymptomatic for chest pains. In summary this 76-year-old gentleman has the following problems #1 nonspecific electrocardiographic abnormalities without any chest pains nor troponin elevation. His colon artery bypass Surgery was done 2 years ago which showed leave him protected from a significant coronary event. #2. Mechanical fall #3. Recent CVA and plan for carotid endarterectomy. #4. Patient may proceed with carotid endarterectomy. An echocardiogram is still pending and hopefully this to be done within the next 24-48 hours. However in 2016 he had normal left ventricular systolic function by echocardiogram. Continue telemetry? Yes
--- NOTE | 2017-02-21 13:20 | MRI REPORT ---
EXAMINATION: MR BRAIN WITHOUT AND WITH CONTRAST MR ANGIOGRAPHY BRAIN WITHOUT AND WITH CONTRAST MR ANGIOGRAPHY NECK WITHOUT AND WITH CONTRAST CLINICAL INFORMATION: Recent CVA. Worsening right-sided weakness. COMPARISON: Head CT from 02/20/2017 and 10/11/2016 TECHNIQUE: Multiplanar, multisequence MR imaging was performed through the brain before and after the intravenous administration of 9 mL Gadavist. In addition, 3D [id number] MR angiography was performed through the neck and brain without the use of intravenous contrast, and source images were reviewed along with rotating MIPs. Finally, bolus IV postcontrast MR angiography was performed through the cervicocerebral vasculature. Source images were reviewed and additional volumetric and angled MIPs were independently generated and archived by the 3D laboratory. Stenoses are assessed in accordance with NASCET criteria unless otherwise indicated. FINDINGS: BRAIN MRI: There is a 6 mm focus of acute brain ischemia in the left periventricular white matter adjacent to the posterior body of the left lateral ventricle. There is a 2 to 3 mm punctate focus of high signal within the left thalamus which is isointense on the ADC map, which may reflect a subacute infarct. There are chronic infarcts within the high left frontal and right parietal lobes, a small area in the left occipital lobe, as well as within the left centrum semiovale and right periatrial region. There are punctate chronic lacunar infarcts in the caudate nuclei bilaterally. There are prominent perivascular spaces in the basal ganglia bilaterally. There is moderate generalized prominence of the ventricles, sulci, and extra-axial CSF spaces and moderate scattered T2 prolongation in the bihemispheric white matter. The major arterial and venous flow voids are preserved. No extra-axial collections, mass effect, or shift of the normally midline structures. There is a punctate focus of susceptibility artifact in the left thalamus compatible with a tiny focus of mineralization when correlated with CT. The craniocervical junction appears unremarkable. Marrow signal is overall preserved apart from some curvilinear heterogeneous signal within the clivus which has a somewhat groundglass appearance on CT, and may reflect a benign fibro-osseous structure. No upper cervical adenopathy. There is mild mucosal thickening in the maxillary sinuses with a retention cyst on the left. There is mild mucosal thickening in the ethmoid air cells. The nasal cavity and mastoid air cells are clear. There are some secretions in the nasopharynx. The orbits appear unremarkable. BRAIN MRA: Expected flow-related and contrast enhanced signal seen in the major intracranial arteries. No high-grade stenosis, proximal large vessel occlusion, or discrete saccular intracranial aneurysm is identified. There appears to be mild long segment narrowing of the inferior division of the left MCA on the 3-D [id number] images which is not definitively replicated on the postcontrast MRA imaging through the neck which covers this region. NECK MRA: There is some motion on the images, limiting assessment. The visualized aortic arch is normal in caliber. There is a common origin of the innominate artery and left common carotid artery. The proximal subclavian arteries appear unremarkable. The left common carotid artery demonstrates normal flow related signal and enhancement. There appears to be a focal visually moderate to high-grade stenosis involving the proximal left internal carotid artery, which is difficult to measure accurately. The luminal diameter appears to narrow down to approximately 1.9 cm based on the coronal postcontrast source images (series 9 image 28), distally the vessel measures 4.4 mm, for an approximately 57% stenosis. The remainder of the cervical left internal carotid artery appears normal in caliber. The right common carotid artery appears normal in caliber. There appears to be a focal severe stenosis involving the proximal right internal carotid artery which on the postcontrast 3-D reformatted images suggest at most string-like opacification across this region, or nonopacification. The remainder of the cervical right internal carotid artery appears normal in caliber. The right vertebral artery is quite diminutive and its origin is not ideally visualized. The remainder of its cervical course appears unremarkable. The left vertebral artery is dominant. There is suspected to be a focal moderate or high-grade stenosis at its origin, distal to which the vessel is normal in caliber throughout its cervical course. IMPRESSION: 1. A 6 mm focus of acute brain ischemia in the left periventricular white matter. A 2 to 3 mm punctate focus of high signal on the diffusion-weighted images in the left thalamus, potentially a subacute infarct. Background of moderate chronic microangiopathy and volume loss as well as scattered chronic infarcts as above. 2. Focal severe stenosis involving the proximal right internal carotid artery. Focal moderate to high-grade stenosis involving the proximal left internal carotid artery. Focal moderate or high-grade stenosis at the origin of the dominant left vertebral artery. 3. No high-grade stenosis or occlusion in the intracranial arteries.
[2017-02-21 15:32] VITALS: BP 110/40
[2017-02-21 22:25] VITALS: BP 150/74
[2017-02-22 06:18] VITALS: BP 132/62
--- NOTE | 2017-02-22 08:14 | PN- Housestaff ---
Orly Coburn 02/22/17 0814: Subjective Follow-up For: Unwitnessed fall Recent CVA with worsening of Rt sided weakness COPD exacerbation. Tele-Events Since Last Visit: SR 50-60 Subjective: Patient was seen and examined. Is anxious about his prognosis. Denies SOB, CP, N/V/Abd pain. VSS No events reported. Possible carotid endarterectomy on Saturday. Review of Systems Constitutional: Reports: see HPI. Objective Last 24 Hrs of Vital Signs/I&O Vital Signs Date Time Temp Pulse Resp B/P B/P Pulse O2 O2 Flow FiO2 Mean Ox Delivery Rate 02/22 1845 93 Nasal 1.0L Cannula 02/22 1600 94 Nasal 1.0L Cannula 02/22 1422 97.5 60 22 134/80 94 Nasal 1.0L Cannula 02/22 0931 96 Nasal 1.0L Cannula 02/22 0819 56 120/70 02/22 0816 56 120/70 02/22 0816 56 120/70 02/22 0816 56 120/70 02/22 0800 95 Nasal 2.0L Cannula 02/22 0618 98.7 54 22 132/62 95 Nasal Cannula 02/22 0000 Nasal 2.0L Cannula 02/21 2225 99.1 74 22 150/74 99 04 2200 74 150/74 Intake & Output 02/22 1600 05 0800 02/22 0000 Intake Total 900 100 200 Output Total 450 400 300 Balance 450 -300 -100 Intake, Oral 900 100 200 Output, Urine 450 400 300 Physical Exam General Appearance: Alert, Cooperative, No Acute Distress Other Physical Findings: Skin: No Rashes HEENT: Atraumatic, PERRLA, EOMI, Mucous Membr. 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 Otherwise strength and ROM intact Extremities: No Clubbing, No Cyanosis, No Edema, Normal Pulses, No Tenderness/ Swelling Vascular: Normal Pulses, Pulses Symmetrical Current Medications: Current Medications Sig/Shakir Start time Last Medication Dose Route Stop Time Status Admin Acetaminophen 650 MG Q6P PRN 02/20 1230 AC PO Albuterol Sulfate 3 ML BID 02/20 2200 AC 02/22 INH 1845 Amlodipine Besylate 10 MG DAILY 02/21 1000 AC 02/22 PO 0819 Aspirin 81 MG DAILY 02/20 1235 AC 02/22 PO 0816 Atorvastatin Calcium 80 MG 1700 02/21 1700 AC 02/22 PO 1817 Azithromycin 500 MG DAILY 02/23 1000 AC PO 02/25 1001 Azithromycin 500 MG DAILY 02/21 1000 DC 02/22 Sodium Chloride 250 ML IV 0817 Carvedilol 6.25 MG BID 02/20 1238 AC 02/22 PO 0816 Clopidogrel Bisulfate 75 MG DAILY 02/21 1410 AC 02/22 PO 1058 Docusate Sodium 100 MG DAILY NEEDED PRN 02/20 1245 AC PO Enoxaparin Sodium 40 MG DAILY 02/20 1233 AC 02/22 SC 0817 Famotidine 20 MG BID PRN 02/20 1245 AC 02/20 PO 1625 Finasteride 5 MG DAILY 02/20 1238 AC 02/22 PO 0815 Ibuprofen 600 MG Q6P PRN 02/20 1230 AC PO Insulin Aspart 0 TIDAC 02/21 0800 AC 02/22 SC 1817 Ipratropium [place] 2.5 ML BID 02/20 2200 AC 02/22 INH 1845 Losartan Potassium 100 MG DAILY 02/20 1239 AC 02/22 PO 0816 Methylprednisolone 40 MG Q12 02/20 1530 DC 02/22 IV 0816 Oxybutynin Chloride 2.5 MG BID 02/20 1239 AC 02/22 PO 0816 Prednisone 40 MG DAILY 02/23 1000 AC PO Tamsulosin HCl 0.4 MG DAILY 02/20 1239 AC 02/22 PO 0816 Assessment/Plan Assessment: #Fall/gait instability: * Physical therapy consult and evaluation * Obtain neuro records from [place] * Orthostatics * Serial neuro exams * CT of the head to rule out bleed * Worsening of Rt sided weakness noted. MRI, MRA head/neck ordered. * MRI reveals subacute infarct in Lt thalamus; unclear if it is new finding given his recent h/o CVA. Will obtain records to compare. * plavix started yesterday. * Will add a statin. * MRA positive for Focal severe stenosis involving the proximal right internal carotid artery. Focal moderate to high-grade stenosis involving the proximal left internal carotid artery. Focal moderate or high-grade stenosis at the origin of the dominant left vertebral artery. * Vascular follow up for carotid artery disease * Possible carotid endarterectomy on Saturday * Consider holter monitor outpatient, may need AC if any A.fib detected #Nonspecific EKG changes. Troponin 1 is negative. * cardiology consult appreciated; awaiting echo #Shortness of breath: Chest x-ray shows hazy bibasilar opacities, and low lung volumes without definite acute pulmonary disease. Flu swab was negative. Patient does have a history of COPD. He is a former smoker with a 2 pack per day habit but quit 30 years ago. On physical exam he is diffusely wheezy with diminished air movement. * He got 1 dose of azithromycin ceftriaxone for treatment of pneumonia in ED * Follow off antibiotics for pneumonia as patient is afebrile with no white count * change Solu-Medrol to PO prednisone taper * change azithromycin to PO for total of 5 days #Hypertension: Patient had blood pressure 150/68 and subsequently 171/77. He was noted to be bradycardic with heart rate down to 50. * Continue amlodipine 10 mg * Continue carvedilol 6.25, with hold parameters for heart rate #BPH * Continue Benicar, Vesicare and Flomax #Patient is DNR and DNI. Problem List: 1. Atrial fibrillation 2. COPD exacerbation 3. Fall Pain Ratin Pain Location: NA Pain Goal: Remain pain free Pain Plan: NA Tomorrow's Labs & Rationales: BEP to monitor electrolytes CBC to monitor H&H Rula Krause MD 02/22/17 1307: Attending MD Review Statement Attending Statement Attending MD Statement: examined this patient, discuss w/resident/PA/CITY MAGISTRATE, agreed w/resident/PA/CITY MAGISTRATE, reviewed EMR data (avail), discussed with nursing, discussed with case mgmt, amended to note Attending Assessment/Plan: Patient seen and examined. No issues overnight on threat monitoring analyst. Remains in sinus rhythm. Denies chest pain or shortness of breath. Denies palpitations. Currently maintaining saturation on 1 L of oxygen. On examination he is lungs are clear bilaterally. He has no jugular venous distention or peripheral edema. On neurologic examination his speech is intact, he continues to have power of 4 /5 in the right upper extremity with a pronator drift. Power in the right leg is 4/5 today. He does not have any sensory deficits. Problems 1. Unwitnessed fall 2. Recent stroke with worsening neurologic deficit. 3. Abnormal EKG; nonspecific 4. Bilateral carotid artery disease 5. COPD exacerbation. Plan: Case discussed with the-vascular surgery service. The plan is to proceed with left carotid endarterectomy on Saturday. Keep patient n.p.o. after midnight Saturday. Continue -Antiplatelet therapy with aspirin and Plavix. Continue high-dose statin therapy. -Patient has atrial fibrillation however he is status post MAZE procedure. he currently remains in sinus rhythm. Neurology consultation appreciated. Recommendation is for placing an implantable threat monitoring analyst postoperatively. If patient shows any evidence of atrial fibrillation he should be placed on full dose anticoagulation therapy continue physical therapy through the weekend.. -Patient is doing better from a respiratory standpoint. He has no respiratory complaints at present. Lungs are clear bilaterally. He is saturating 96% on 1 L of oxygen. Begin patient on prednisone 40 mg orally daily started tomorrow and taper down. Transition to oral azithromycin and completed 5 days of therapy. -No medical contraindication at present for patient proceeding with carotid endarterectomy.
--- NOTE | 2017-02-22 12:09 | Cons- Neurology ---
General Information and HPI Consulting Request Date of Consult: 02/22/17 Requested By: Rula Krause MD Reason for Consult: Falls and concern for stroke Source of Information: patient Exam Limitations: no limitations History of Present Illness: This is a very pleasant 76-year-old male who just recently had a new left hemispheric infarction, who was brought in back to the hospital by family members after falling twice in not being able to bear his own weight on his right side. He is known for bilateral severe carotid stenosis and an intervention was planned for endarterectomy. He notes that prior to coming to the hospital he felt weakness develop in his right proximal leg and you immediately that he is having another stroke. There were no other symptoms. An MRI confirms that he did have another embolic stroke. He also has a history of atrial fibrillation off anticoagulation. He further notes that he is quite upset as he managed to do pretty well with the rehabilitation and get back to his baseline but now has dyspnea stroke as a setback. He denies any trouble swallowing. Allergies/Medications Allergies: Coded Allergies: shellfish derived (Severe, UNKNOWN 02/20/17) acetaminophen (From PERCOCET) (UNKNOWN 02/20/17) oxycodone (From PERCOCET) (UNKNOWN 02/20/17) Home Med List: Amlodipine Besylate 10 MG TABLET 1 TAB PO DAILY blood pressure (Reported) Aspirin (Aspirin*) 81 MG TAB.CHEW 1 TAB PO DAILY HEART HEALTH (Reported) Carvedilol 6.25 MG TABLET 1 TAB PO BID HEART (Reported) Docusate Sodium (Stool Softener) 100 MG CAPSULE 1 CAP PO DAILY PRN CONSTIPATION (Reported) Famotidine 20 MG TABLET 1 TAB PO BID PRN GI (Reported) Finasteride (Proscar) 5 MG TABLET 1 TAB PO DAILY prostate (Reported) Olmesartan Medoxomil (Benicar) 40 MG TABLET 1 TAB PO DAILY blood pressure ( Reported) Solifenacin Succinate (Vesicare) 5 MG TABLET 1 TAB PO DAILY BLADDER (Reported ) Tamsulosin HCl (Flomax) 0.4 MG CAP.ER.24H 1 CAP PO DAILY prostate (Reported) Umeclidinium Brm/Vilanterol Tr (Anoro Ellipta 62.5-25 Mcg INH) 62.5 MCG-25 MCG/ ACTUATION BLST.W.DEV 1 PUFF INH DAILY BREATHING PROBLEMS (Reported) Current Medications: Current Medications Sig/Shakir Start time Last Medication Dose Route Stop Time Status Admin Acetaminophen 650 MG Q6P PRN 02/20 1230 AC PO Albuterol Sulfate 3 ML BID 02/20 2200 AC 02/22 INH 0931 Amlodipine Besylate 10 MG DAILY 02/21 1000 AC 02/22 PO 0819 Aspirin 81 MG DAILY 02/20 1235 AC 02/22 PO 0816 Atorvastatin Calcium 80 MG 1700 02/21 1700 AC 02/21 PO 2000 Azithromycin 500 MG DAILY 02/21 1000 AC 02/22 Sodium Chloride 250 ML IV 0817 Carvedilol 6.25 MG BID 02/20 1238 AC 02/22 PO 0816 Clopidogrel Bisulfate 75 MG DAILY 02/21 1410 AC 02/22 PO 1058 Docusate Sodium 100 MG DAILY NEEDED PRN 02/20 1245 AC PO Enoxaparin Sodium 40 MG DAILY 02/20 1233 AC 02/22 SC 0817 Famotidine 20 MG BID PRN 02/20 1245 AC 02/20 PO 1625 Finasteride 5 MG DAILY 02/20 1238 AC 02/22 PO 0815 Ibuprofen 600 MG Q6P PRN 02/20 1230 AC PO Insulin Aspart 0 TIDAC 02/21 0800 AC 02/22 SC 0816 Ipratropium [place] 2.5 ML BID 02/20 2200 AC 02/22 INH 0931 Losartan Potassium 100 MG DAILY 02/20 1239 AC 02/22 PO 0816 Methylprednisolone 40 MG Q12 02/20 1530 AC 02/22 IV 0816 Oxybutynin Chloride 2.5 MG BID 02/20 1239 AC 02/22 PO 0816 Tamsulosin HCl 0.4 MG DAILY 02/20 1239 AC 02/22 PO 0816 Past History Travel History Traveled to [place] past 21 day No Medical History Neurological: CVA EENT: NONE Cardiovascular: AFIB, hypertension, TRIPLE BYPASS SURGERY , bilateral carotid stenosis Respiratory: COPD, emphysema Gastrointestinal: NONE Hepatic: BILE DUCT CANCER Renal: NONE Musculoskeletal: NONE Psychiatric: NONE Endocrine: diabetes Blood Disorders: NONE Cancer(s): ca-cbd/liver...unsure CPA TAX/Reproductive: NONE Surgical History Surgical History: non-contributory Family History Relations & Conditions If Any: FATHER, , Age 60+; Cause: Gangrene of lower extremity. FH: diabetes mellitus Psychosocial History Where Do You Live? Home Services at Home: None Primary Language: Bulgarian Smoking Status: Former Smoker ETOH Use: denies use Illicit Drug Use: denies illicit drug use Living Will? Patient and son unsure, pt expressed Full code status Power of Rehabilitation Services Aide/HCP? yes Functional Ability ADLs Unknown: dressing, eating, toileting, bathing. Ambulation: walker IADLs Unknown: shopping, housework, finances, food prep, telephone, transportation, medication admin. Exam & Diagnostic Data Vital Signs and I&O Vital Signs Date Time Temp Pulse Resp B/P B/P Pulse O2 O2 Flow FiO2 Mean Ox Delivery Rate 02/23 0831 96 Nasal 1.0L Cannula 02/22 0819 56 120/70 02/22 0816 56 120/70 02/22 0816 56 120/70 02/22 0816 56 120/70 02/22 0800 95 Nasal 2.0L Cannula 02/22 0618 98.7 54 22 132/62 95 Nasal Cannula 02/22 0000 Nasal 2.0L Cannula 02/21 2225 99.1 74 22 150/74 99 02/21 2200 74 150/74 02/21 1532 98.2 75 18 110/40 90 Intake & Output 02/22 1600 02/22 0800 02/22 0000 Intake Total 100 200 Output Total 400 300 Balance -300 -100 Intake, Oral 100 200 Output, Urine 400 300 Physical Exam: General: The patient is in no distress. Pleasant and cooperative. MSE: Alert and oriented 3. Good attention and concentration. Good short-term memory and fund of knowledge reflected through our conversation. Language is fluent with good comprehension and repetition. Cardiovascular: S1 and S2 are normal, regular rate and rhythm, and normal pedal pulses. Vision: Fundoscopic exam does not reveal any abnormalties. Visual hooker are intact. Neurological: Extra ocular movements intact, SANG, face is symmetric, tongue midline, uvula raises equally in the midline, V1-V3 sensation to touch is intact and equal bilaterallty, sternocleidomastoid and trapezius are strong on both sides, muscles of mastication are strong. No dysarthria noted. Motor exam reveals right pronator drift and right proximal leg weakness 4 out of 5. Power is otherwise 5-5 throughout the distribution distally and proximally. Sensory exam did not reveal any deficits to touch, temperature, vibration and proprioception. Reflexes are symmetric bilaterally but there is an upgoing toe on the right.. Cerebellar exam does not reveal any dysmetria. Gait was deferred. Imaging/Other Studies: IMPRESSION: 1. A 6 mm focus of acute brain ischemia in the left periventricular white matter. A 2 to 3 mm punctate focus of high signal on the diffusion-weighted images in the left thalamus, potentially a subacute infarct. Background of moderate chronic microangiopathy and volume loss as well as scattered chronic infarcts as above. 2. Focal severe stenosis involving the proximal right internal carotid artery. Focal moderate to high-grade stenosis involving the proximal left internal carotid artery. Focal moderate or high-grade stenosis at the origin of the dominant left vertebral artery. 3. No high-grade stenosis or occlusion in the intracranial arteries. Assessment/Plan Assessment: 76-year-old man with [id number] infarctions in known moderate to high severity ICA stenosis on both sides, with the left side seeming worse. In all likelihood this new infarction which is small is an arterial embolic infarction related to either break off plaque LEFT ICA or due to reduced flow. I would therefore strongly recommend starting as soon as possible with a left endarterectomy and later on considering doing a right one too. Further once this is done the patient should have a link monitor placed and has known atrial fibrillation should be anticoagulated. Recommendations: 1. Strongly recommend an immediate left ICA endarterectomy followed later by a right endarterectomy. 2. Strongly recommend following disciples with anticoagulation for A. fib and if such is truly found. 3. Treat recurrent pneumonia to optimize patient's condition prior to surgery. 4. Is already on a high intensity statin with an ARB, and dual antiplatelet until deemed to be a surgical candidate for ICA endarterectomy. 5. Physical therapy. Consult Acknowledgment - Thank you for your consult request.
[2017-02-22 14:22] VITALS: BP 134/80
--- NOTE | 2017-02-22 17:51 | PN- Cardiology ---
Subjective Subjective: Resting comfortably. He is somewhat nervous about the prospect of surgery. Objective Vital Signs and I&Os Vital Signs Date Time Temp Pulse Resp B/P B/P Pulse O2 O2 Flow FiO2 Mean Ox Delivery Rate 02/22 1422 97.5 60 22 134/80 94 Nasal 1.0L Cannula 02/22 0931 96 Nasal 1.0L Cannula 02/22 0819 56 120/70 02/22 0816 56 120/70 02/22 0816 56 120/70 02/22 0816 56 120/70 02/22 0800 95 Nasal 2.0L Cannula 02/22 0618 98.7 54 22 132/62 95 Nasal Cannula 02/22 0000 Nasal 2.0L Cannula 02/21 2225 99.1 74 22 150/74 99 02/21 2200 74 150/74 Intake & Output 02/22 1600 02/22 0800 02/22 0000 02/21 1600 02/21 0800 02/21 0000 Intake Total 900 100 200 720 110 464 Output Total 450 400 300 200 300 Balance 450 -300 -100 520 110 164 Intake, IV 10 4 Intake, Oral 900 100 200 720 100 460 Number 0 Bowel Movements Output, Urine 450 400 300 200 300 Physical Exam: General: no apparent distress. Alert. Eyes: No obvious scleral icterus. HEENT: No jugular venous distention or abnormal jugular venous pulsations. Cardiovascular: Normal intensity S1/S2. Regular. Respiratory: Scattered bilateral wheezes Abdomen: Soft, nontender with no guarding or rebound tenderness. Musculoskeletal: No clubbing or cyanosis noted Skin: Warm Neurologic: Normal speech Current Medications: Current Medications Sig/Shakir Start time Last Medication Dose Route Stop Time Status Admin Acetaminophen 650 MG Q6P PRN 02/20 1230 AC PO Albuterol Sulfate 3 ML BID 02/20 2200 AC 02/22 INH 0931 Amlodipine Besylate 10 MG DAILY 02/21 1000 AC 02/22 PO 0819 Aspirin 81 MG DAILY 02/20 1235 AC 02/22 PO 0816 Atorvastatin Calcium 80 MG 1700 02/21 1700 AC 02/21 PO 2000 Azithromycin 500 MG DAILY 02/23 1000 AC PO 02/25 1001 Azithromycin 500 MG DAILY 02/21 1000 DC 02/22 Sodium Chloride 250 ML IV 0817 Carvedilol 6.25 MG BID 02/20 1238 AC 02/22 PO 0816 Clopidogrel Bisulfate 75 MG DAILY 02/21 1410 AC 02/22 PO 1058 Docusate Sodium 100 MG DAILY NEEDED PRN 02/20 1245 AC PO Enoxaparin Sodium 40 MG DAILY 02/20 1233 AC 02/22 SC 0817 Famotidine 20 MG BID PRN 02/20 1245 AC 02/20 PO 1625 Finasteride 5 MG DAILY 02/20 1238 AC 02/22 PO 0815 Ibuprofen 600 MG Q6P PRN 02/20 1230 AC PO Insulin Aspart 0 TIDAC 02/21 0800 AC 02/22 SC 1314 Ipratropium [place] 2.5 ML BID 02/20 2200 AC 02/22 INH 0931 Losartan Potassium 100 MG DAILY 02/20 1239 AC 02/22 PO 0816 Methylprednisolone 40 MG Q12 02/20 1530 DC 02/22 IV 0816 Oxybutynin Chloride 2.5 MG BID 02/20 1239 AC 02/22 PO 0816 Prednisone 40 MG DAILY 02/23 1000 AC PO Tamsulosin HCl 0.4 MG DAILY 02/20 1239 02/22 PO 0816 Results Last 48 Hrs of Labs/Mics: Laboratory Tests 02/20/17 1003: Urinalysis LIGHT H, Urine Color YEL, Urine Clarity HAZY H, Urine pH 6.0, Ur Specific Crary 1.025, Urine Protein TRACE H, Urine Ketones NEG, Urine Nitrite POS H, Urine Bilirubin NEG, Urine Urobilinogen 0.2, Ur Leukocyte Esterase SMALL H, Ur Microscopic SEDIMENT EXAMINED, Urine RBC 1-3, Urine WBC 25-50 H, Ur Epithelial Cells RARE, Urine Bacteria MANY H, Granular Casts RARE H, Urine Mucus FEW, Urine Hemoglobin SMALL H, Urine Glucose NEG 02/20/17 0832: RBC 5.08, MCV 86.5, MCH 29.2, RDW 14.8 H, MPV 7.9, Gran % 76.5 H, Lymphocytes % 10.6 L, Monocytes % 10.4 H, Eosinophils % 2.1, Basophils % 0.4, Absolute Granulocytes 5.0, Absolute Lymphocytes 0.7 L, Absolute Monocytes 0.7 H, Absolute Eosinophils 0.1, Absolute Basophils 0, PUBS MCHC 33.8 02/20/17 0732: Anion Gap 15, Estimated GFR > 60, BUN/Creatinine Ratio 23.0, Glucose 139 H, Calcium 9.2, Total Bilirubin 1.0, AST 27, ALT 28, Alkaline Phosphatase 76, Troponin I 0.02, Total Protein 7.8, Albumin 4.0, Globulin 3.8, Albumin/Globulin Ratio 1.1 Microbiology 02/20 0716 NASOPHARYN: Influenza Virus A & B Rapid Smear - COMP Recent Imaging Studies: Telemetry tracings were personally reviewed and shows sinus rhythm and sinus bradycardia MRI 1. A 6 mm focus of acute brain ischemia in the left periventricular white matter. A 2 to 3 mm punctate focus of high signal on the diffusion-weighted images in the left thalamus, potentially a subacute infarct. Background of moderate chronic microangiopathy and volume loss as well as scattered chronic infarcts as above. 2. Focal severe stenosis involving the proximal right internal carotid artery. Focal moderate to high-grade stenosis involving the proximal left internal carotid artery. Focal moderate or high-grade stenosis at the origin of the dominant left vertebral artery. 3. No high-grade stenosis or occlusion in the intracranial arteries. Assessment/Plan Assessment/Plan 1. COPD with exacerbation 2. Fall with recurrent CVA and bilateral carotid artery disease 3. Coronary artery disease status post three-vessel CABG in 2014 4. Paroxysmal atrial fibrillation status post MAZE/left atrial appendage ligation with no recurrent A. fib on subsequent implantable loop recorder ( subsequently explanted) 5. Cholangiocarcinoma with previous biliary stent 6. Ischemic cardiomyopathy with subsequent ejection fraction recovery 7. Hypertensive/hyperlipidemia Patient remains hemodynamically stable and is in sinus rhythm on telemetry. revious implantable loop recorder revealed no evidence of recurrent atrial fibrillation and he also has a history of left atrial appendage ligation; not planned for full anticoagulation at this time. As recent outpatient echocardiogram showed normal ejection fraction a repeat echo cardiac is not required at this time. Neurology input appreciated. Follow-up vascular recommendations as the patient will likely require a left carotid endarterectomy. He is bronchospastic on exam today and may require a pulmonary evaluation for preoperative pulmonary assessment. He is at mild to moderate cardiovascular risk for carotid endarterectomy given his cardiovascular history. Faisal Manning MD [facility] Continue telemetry? Yes
[2017-02-22 22:22] VITALS: BP 140/80
[2017-02-23 07:50] VITALS: BP 167/80
[2017-02-23 08:18] LABS: ABSOLUTE BASOPHIL COUNT 0 /CUMM (0.0-0.2); ABSOLUTE EOSINOPHIL COUNT 0 /CUMM (0.0-0.7); ABSOLUTE GRANULOCYTE CT 8.6 /CUMM (1.4-6.5); ABSOLUTE LYMPH COUNT 1.2 /CUMM (1.2-3.4); ABSOLUTE MONOCYTE COUNT 0.8 /CUMM (0.10-0.60); BASOPHIL % 0.2 % (0.0-2.0); EOSINOPHIL % 0.4 % (0-5); GRANULOCYTE % 80.7 % (42.2-75.2); HEMATOCRIT 44.2 % (42-52); MEAN CORPUSCULAR HGB 29.5 PG (27.0-31.0); MEAN CORPUSCULAR HGB CONC 34.2 G/DL (33.0-37.0); MEAN CORPUSCULAR VOLUME 86.4 FL (80.0-94.0); MEAN PLATELET VOLUME 8.5 FL (7.4-10.4); PLATELET COUNT 200 /CUMM (130-400); RBC DISTRIBUTION WIDTH 14.6 % (11.5-14.5); RED BLOOD CELL CT 5.12 /CUMM (4.70-6.10)
[2017-02-23 09:14] LABS: WHITE BLOOD CELL COUNT 10.6 /CUMM (4.8-10.8)
--- NOTE | 2017-02-23 10:04 | PN- Cardiology ---
Subjective Subjective: * Patient has mild shortness of breath and reports trouble mobilizing his secretions. No chest discomfort or palpitations. * Carotid endarterectomy anticipated. * sinus rhythm Objective Vital Signs and I&Os Vital Signs Date Time Temp Pulse Resp B/P B/P Pulse O2 O2 Flow FiO2 Mean Ox Delivery Rate 02/23 0851 54 167/80 02/23 0850 97.6 54 167/80 02/23 0850 54 167/80 02/23 0850 54 167/80 02/23 0750 97.6 54 20 167/80 95 02/22 2222 98.4 71 22 140/80 95 Room Air 02/22 2215 95 Room Air 02/22 2156 66 140/82 02/22 1845 93 Nasal 1.0L Cannula 02/22 1600 94 Nasal 1.0L Cannula 02/22 1422 97.5 60 22 134/80 94 Nasal 1.0L Cannula Intake & Output 02/23 1600 02/23 0800 02/23 0000 02/22 1600 02/22 0800 02/22 0000 Intake Total 180 900 100 200 Output Total 250 550 450 400 300 Balance -250 -370 450 -300 -100 Intake, Oral 180 900 100 200 Output, Urine 250 550 450 400 300 Physical Exam: General: WD/WN male in NAD; alert and oriented x 3 Heart: RRR w/o murmur Lungs: clear bilaterally Extremities: no edema Assessment/Plan Assessment/Plan * Continue current anticoagulation until surgery and its date is decided upon. * Begin a mucolytic to help mobilize secretions. Continue telemetry? Yes
--- NOTE | 2017-02-23 10:22 | PN- Att Addend ---
Attending Addendum Attending Brief Note Patient seen and examined. Resting comfortably not in acute distress. No events on telemetry. No issues reported by nursing staff. Patient is apprehensive about the planned surgery. Denies chest pain. Admits to some fatigue with exertion. Reports cough, states that secretions are difficult to mobilize. Vital Signs Date Time Temp Pulse Resp B/P B/P Pulse O2 O2 Flow FiO2 Mean Ox Delivery Rate 02/23 0851 54 167/80 02/23 0850 97.6 54 167/80 02/23 0850 54 167/80 02/23 0850 54 167/80 02/23 0750 97.6 54 20 167/80 95 02/22 2222 98.4 71 22 140/80 95 Room Air 02/22 2215 95 Room Air 02/22 2156 66 140/82 02/22 1845 93 Nasal 1.0L Cannula 02/22 1600 94 Nasal 1.0L Cannula 02/22 1422 97.5 60 22 134/80 94 Nasal 1.0L Cannula Gen. appearance: Well-developed, not in any acute distress Heart: S1-S2 regular Lungs: Fair entry bilaterally with very mild expiratory rhonchi in the bases. Abdomen: Soft, nontender with normal bowel sounds Extremities: No pedal edema Skin: Intact with no rashes Neurologic: Power 4/5 right upper extremity, 5/5 left upper extremity, 3/5 right lower extremity, 5/5 left lower extremity. No sensory deficits. Problems 1. Unwitnessed fall 2. Recent stroke with worsening neurologic deficit. 3. Abnormal EKG; nonspecific 4. Bilateral carotid artery disease 5. COPD exacerbation. Plan: - Patient is scheduled to undergo left carotid endarterectomy on Saturday. Will be kept nothing by mouth past midnight tomorrow. -Continue antiplatelet therapy with aspirin and Plavix. Continue high-dose statin therapy. -No evidence of atrial fibrillation on telemetry monitoring. Cardiology service reports no evidence of atrial fibrillation implantable shelter monitor as an outpatient in the past. -Continue bronchodilator therapy. Taper prednisone by 10 mg every 3 days. Complete 5 days of azithromycin.
[2017-02-23 14:47] VITALS: BP 132/70
[2017-02-23 21:33] VITALS: BP 170/88
[2017-02-24 06:30] VITALS: BP 158/88
[2017-02-24 07:53] LABS: ABSOLUTE BASOPHIL COUNT 0 /CUMM (0.0-0.2); ABSOLUTE EOSINOPHIL COUNT 0.1 /CUMM (0.0-0.7); ABSOLUTE GRANULOCYTE CT 6.9 /CUMM (1.4-6.5); ABSOLUTE LYMPH COUNT 1.4 /CUMM (1.2-3.4); ABSOLUTE MONOCYTE COUNT 0.8 /CUMM (0.10-0.60); BASOPHIL % 0.4 % (0.0-2.0); EOSINOPHIL % 0.9 % (0-5); GRANULOCYTE % 74.9 % (42.2-75.2); HEMATOCRIT 46.1 % (42-52); MEAN CORPUSCULAR HGB 29.6 PG (27.0-31.0); MEAN CORPUSCULAR HGB CONC 34.2 G/DL (33.0-37.0); MEAN CORPUSCULAR VOLUME 86.7 FL (80.0-94.0); MEAN PLATELET VOLUME 8.5 FL (7.4-10.4); PLATELET COUNT 197 /CUMM (130-400); RBC DISTRIBUTION WIDTH 14.5 % (11.5-14.5); RED BLOOD CELL CT 5.31 /CUMM (4.70-6.10); WHITE BLOOD CELL COUNT 9.2 /CUMM (4.8-10.8)
--- NOTE | 2017-02-24 10:37 | PN- Cardiology ---
Subjective Subjective: * Breathing is improved. No chest discomfort or palpitations. * Carotid endarterectomy anticipated. * sinus rhythm Objective Vital Signs and I&Os Vital Signs Date Time Temp Pulse Resp B/P B/P Pulse O2 O2 Flow FiO2 Mean Ox Delivery Rate 02/24 0911 94 Room Air 02/24 0853 56 158/88 02/24 0853 56 158/88 02/24 0852 56 158/88 02/24 0852 56 158/88 02/24 0630 97.4 56 18 158/88 95 02/23 2133 Room Air 02/23 2133 98.2 62 18 170/88 93 Room Air 02/23 2126 62 170/88 02/23 1945 96 Room Air Room Air 02/23 1447 97.7 58 20 132/70 95 Room Air 02/23 1047 93 Room Air Intake & Output 02/24 1600 02/24 0800 02/24 0000 02/23 1600 02/23 0800 02/23 0000 Intake Total 550 180 Output Total 325 300 700 250 550 Balance -325 -300 -150 -250 -370 Intake, Oral 550 180 Output, Urine 325 300 700 250 550 Physical Exam: General: WD/WN male in NAD; alert and oriented x 3 Heart: RRR w/o murmur Lungs: clear bilaterally Extremities: no edema Assessment/Plan Assessment/Plan * Carotid endarterectomy planned for tomorrow. Hold Plavix and continue aspirin. Continue telemetry? Yes
--- NOTE | 2017-02-24 12:33 | PN- Att Addend ---
Attending Addendum Attending Brief Note Patient seen and examined. Resting comfortably and not in acute distress. Continues to be apprehensive about scheduled surgery tomorrow. No new complaints reported. No events on telemetry monitoring. Vital Signs Date Time Temp Pulse Resp B/P B/P Pulse O2 O2 Flow FiO2 Mean Ox Delivery Rate 02/24 0911 94 Room Air 02/24 0853 56 158/88 02/24 0853 56 158/88 02/24 0852 56 158/88 02/24 0852 56 158/88 02/24 0630 97.4 56 18 158/88 95 02/23 2133 Room Air 02/23 213 98.2 62 18 170/88 93 Room Air 02/23 2126 62 170/88 02/23 1945 96 Room Air Room Air 02/23 1447 97.7 58 20 132/70 95 Room Air Gen. appearance: Not in respiratory distress. Not requiring oxygen supplementation Heart: S1-S2 regular Lungs: Clear bilaterally Abdomen: Soft and nontender Extremities: No pitting edema Skin: Intact with no rashes Neurologic: Power remains intact in the left upper and lower extremities. Power remains over 5 in the right upper extremity. Power appears to have improved back to 4 over 5 in the right lower extremity. Problems 1. Unwitnessed fall 2. Recent stroke with worsening neurologic deficit. 3. Abnormal EKG; nonspecific 4. Bilateral carotid artery disease 5. COPD exacerbation. Plan: -Nothing by mouth past midnight for carotid endarterectomy tomorrow. -Begin patient on D5 half and is at 75 mL an hour tomorrow. -Discontinue Plavix but continue aspirin. Hold a.m. dose of Lovenox. -Continue prednisone taper. -In view of improved strength on the right side today recommend mobilization by the physical therapist service today. If it is indeed stronger his fluctuating symptoms are likely secondary to low-flow state created by his carotid disease. -No need for repeat blood work tomorrow unless there is a change in his clinical status. Add PT/INR to blood work today.
[2017-02-24 14:50] VITALS: BP 154/82
[2017-02-24 17:25] LABS: PT 12.3 SEC (9.4-12.5)
[2017-02-24 22:21] VITALS: BP 130/76
[2017-02-25 06:36] VITALS: BP 130/80
--- NOTE | 2017-02-25 13:08 | Transfer of Care Summary ---
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 fib status post maze procedure not on any anticoagulation, who comes in for chief complaint of fall. He was admitted to telemetry floor for further evaluation. The following problems were addressed: #Fall/gait instability: Underwent Physical therapy consult and evaluation. We obtained records from [facility]. It was noted that right-sided weakness is worsening. MRI and MRA of the head/neck were ordered. MRI reveals subacute infarct in Lt thalamus; unclear if it is new finding given his recent h/o CVA. Findings were compared to records from [facility]. Did not seem to be a new infarct. The patient was evaluated by neurology. Neurologist Dr. Mtz spoke w/attending Dr. Nelida schmidt recommended adding plavix. Statin was added. MRA positive for Focal severe stenosis involving the proximal right internal carotid artery. Focal moderate to high-grade stenosis involving the proximal left internal carotid artery. Focal moderate or high-grade stenosis at the origin of the dominant left vertebral artery. * Vascular follow up for carotid artery disease #Nonspecific EKG changes. Troponin 1 is negative. Cardiology consult appreciated; according to her. #Shortness of breath: Chest x-ray shows hazy bibasilar opacities, and low lung volumes without definite acute pulmonary disease. Flu swab was negative. Patient does have a history of COPD. He is a former smoker with a 2 pack per day habit but quit 30 years ago. On physical exam he is diffusely wheezy with diminished air movement. He got 1 dose of azithromycin ceftriaxone for treatment of pneumonia in EDFollow off antibiotics for pneumonia as patient is afebrile with no white count. He was started on Solu-Medrol 40 g every 12 and azithromycin for anti-inflammatory effect #Hypertension: Patient had blood pressure 150/68 and subsequently 171/77. He was noted to be bradycardic with heart rate down to 50. We continued amlodipine 10 mg and carvedilol 6.25, with hold parameters for heart rate #BPH We continued Benicar, Vesicare and Flomax #Patient is DNR and DNI. Significant Procedures: MRI - MRA-HEAD; MRA-NECK W/O>W RY; MRI-HEAD W & W/O RY IMPRESSION: 1. A 6 mm focus of acute brain ischemia in the left periventricular white matter. A 2 to 3 mm punctate focus of high signal on the diffusion-weighted images in the left thalamus, potentially a subacute infarct. Background of moderate chronic microangiopathy and volume loss as well as scattered chronic infarcts as above. 2. Focal severe stenosis involving the proximal right internal carotid artery. Focal moderate to high-grade stenosis involving the proximal left internal carotid artery. Focal moderate or high-grade stenosis at the origin of the dominant left vertebral artery. 3. No high-grade stenosis or occlusion in the intracranial arteries. Pertinent Lab Results: Laboratory Tests 02/26/17 0430: Anion Gap 13, Estimated GFR > 60, Glucose 223 H, Calcium 8.9, Phosphorus 4.1, Magnesium 2.1, Total Bilirubin 0.8, AST 26, ALT 45, Albumin 3.2 L, CBC w Diff NO MAN DIFF REQ, RBC 4.95, MCV 86.5, MCH 29.3, RDW 14.4, MPV 8.2, Gran % 84.7 H , Lymphocytes % 7.0 L, Monocytes % 7.8, Eosinophils % 0.4, Basophils % 0.1, Absolute Granulocytes 9.7 H, Absolute Lymphocytes 0.8 L, Absolute Monocytes 0.9 H, Absolute Eosinophils 0, Absolute Basophils 0, PUBS MCHC 33.9 02/24/17 1545: PT 12.3, INR 1.17 02/24/17 0645: Anion Gap 12, Estimated GFR > 60, BUN/Creatinine Ratio 30.0 H, CBC w Diff NO MAN DIFF REQ, RBC 5.31, MCV 86.7, MCH 29.6, RDW 14.5, MPV 8.5, Gran % 74.9, Lymphocytes % 15.4 L, Monocytes % 8.4, Eosinophils % 0.9, Basophils % 0.4, Absolute Granulocytes 6.9 H, Absolute Lymphocytes 1.4, Absolute Monocytes 0.8 H, Absolute Eosinophils 0.1, Absolute Basophils 0, PUBS MCHC 34.2 Microbiology 02/25 1400 UPPER RESP: Surveillance Culture - RECD 02/25 1400 GI: Surveillance Culture - RECD Assessment/Plan: As above. Please follow-up:
[2017-02-25 13:45] VITALS: BP 150/80
--- NOTE | 2017-02-25 13:53 | PN- Att Addend ---
Attending Addendum Attending Brief Note Patient seen and examined in intensive care unit. Recently returned from the operating room following left carotid endarterectomy. No new events overnight on telemetry monitoring other than transient bradycardia. Patient however is chronically bradycardic and high 40s. He is currently drowsy but arousable. Oriented 3. Not in acute distress. Complaining of some discomfort left neck. Vital Signs Date Time Temp Pulse Resp B/P B/P Pulse O2 O2 Flow FiO2 Mean Ox Delivery Rate 02/25 0636 97.7 47 20 130/80 95 Room Air 02/24 2221 97.6 53 22 130/76 95 Room Air 02/24 2128 Room Air 02/24 2117 60 154/82 02/24 1450 98.0 60 20 154/82 93 Room Air General appearance: Not in acute distress Neurologic: Pupils equal and reactive. Power is 4/5 bilateral upper extremities and left lower extremity. Power is 3/5 right lower extremity. Neck: Intact surgical dressing over the left lateral neck. Drain in place containing serosanguineous fluid. Heart: S1-S2 regular Lungs: Good entry bilaterally, clear to auscultation Abdomen: Soft and nontender with normal bowel sounds Extremities: No pedal edema. Problems 1. Unwitnessed fall 2. Recent stroke with worsening neurologic deficit. 3. Abnormal EKG; nonspecific 4. Bilateral carotid artery disease. Status post left carotid endarterectomy. Postoperative day 0 5. COPD exacerbation. Recommendations: -Follow-up with the vascular surgery service regarding timing of resumption of aspirin/Plavix. -Pain control with Percocet orally and low-dose morphine IV as needed breakthrough pain. -Discontinue IV fluids once patient resumes diet. -Patient is currently bradycardic in the high 40s. Obtain EKG. Hold beta- radha therapy for heart rate less than 60. Continue telemetry monitoring. -Complete 5 days of Zithromax while he is mild COPD exacerbation. Taper off prednisone therapy.
[2017-02-25 16:00] VITALS: BP 130/70
--- NOTE | 2017-02-25 16:46 | PN- Vascular Surgery ---
Subjective Subjective: Post op check: Tolerated procedure, resting comfortably in ICU presently. Complains of fatigue. Acknowledges pain only when moving neck. Denies dysphagia. Denies difficulty speaking and swallowing. No complaints of chest pain, shortness of breath and difficulty breathig. No complaints of nausea and vomitting. Has townsend catheter in place. Has YOHAN x1 in neck. Objective Vital Signs and I&Os Vital Signs Date Time Temp Pulse Resp B/P B/P Pulse O2 O2 Flow FiO2 Mean Ox Delivery Rate 02/25 1425 150/72 02/25 1424 150/72 02/25 1424 150/72 02/25 1345 94 Nasal 2.0L Cannula 02/25 1345 96.6 51 16 150/80 94 Nasal 2.0L Cannula 02/25 0636 97.7 47 20 130/80 95 Room Air 02/24 2221 97.6 53 22 130/76 95 Room Air 02/24 2128 Room Air 02/24 2117 60 154/82 Intake & Output 02/25 1600 02/25 0000 02/24 1600 02/24 0000 Intake Total 2246 680 600 Output Total 390 450 550 325 300 Balance 1856 -450 130 600 -325 -300 Intake, IV 2046 Intake, Oral 200 680 600 Number 1 1 Bowel Movements Output, 20 Drainage Output, Urine 370 450 550 325 300 Patient 198 lb Weight Physical Exam: General: Alert and oritented x3, no acute distress CN 2-12 intact, voice strong, swallow intact, PEERL Cardiac: RRR, s1s2 Pulm: CTA bilaterally Abd: Non-distended Extremities: Moves all extremities, distal sensation grossly intact. Motor: 5 /5 in hand belt operator bilateral upper extremities. Skin warm and well perfused. Peripheral pulses palpable bilateral upper and lower extremities. A-line in place left radial, no evidence of hematoma. Bilateral calves soft and non- tender. Surgical site: Left neck. Dressing dry and intact. YOHAN holding suction, sanguinous drainage present. Trachea midline. No evidence of hematoma. No visible facial droop. Assessment/Plan Assessment/Plan This is a 76 year old male, POD 0, s/p L CEA. -Q1 hour neuro checks for first 24 hours post op -Can apply ice to surgical site -ASA 81 mg daily can start tomorrow -Can advance diet as tolerated -One additional dose of abx ppx -ALPS for mechanical dvt ppx -Townsend to be dc'd tonight at midnight -Will consider dc drain tomorrow am depending on output, will discuss with Dr. Dean prior to pulling drain
[2017-02-26] VITALS: BP 150/80
[2017-02-26 05:36] LABS: ABSOLUTE BASOPHIL COUNT 0 /CUMM (0.0-0.2); ABSOLUTE EOSINOPHIL COUNT 0 /CUMM (0.0-0.7); ABSOLUTE GRANULOCYTE CT 9.7 /CUMM (1.4-6.5); ABSOLUTE LYMPH COUNT 0.8 /CUMM (1.2-3.4); ABSOLUTE MONOCYTE COUNT 0.9 /CUMM (0.10-0.60); BASOPHIL % 0.1 % (0.0-2.0); EOSINOPHIL % 0.4 % (0-5); GRANULOCYTE % 84.7 % (42.2-75.2); HEMATOCRIT 42.8 % (42-52); MEAN CORPUSCULAR HGB 29.3 PG (27.0-31.0); MEAN CORPUSCULAR HGB CONC 33.9 G/DL (33.0-37.0); MEAN CORPUSCULAR VOLUME 86.5 FL (80.0-94.0); MEAN PLATELET VOLUME 8.2 FL (7.4-10.4); PLATELET COUNT 225 /CUMM (130-400); RBC DISTRIBUTION WIDTH 14.4 % (11.5-14.5); RED BLOOD CELL CT 4.95 /CUMM (4.70-6.10); WHITE BLOOD CELL COUNT 11.5 /CUMM (4.8-10.8)
--- NOTE | 2017-02-26 06:07 | PN- Vascular Surgery ---
Subjective Subjective: feeling ok, some soreness left neck, no difficulty swallowing, no sob/cp, no n/v , vee some po. townsend out at midnight, has voided 400c Objective Vital Signs and I&Os Vital Signs Date Time Temp Pulse Resp B/P B/P Pulse O2 O2 Flow FiO2 Mean Ox Delivery Rate 02/26 0400 05 Nasal 2.0L Cannula 02/26 0000 95 Nasal 2.0L Cannula 02/26 0000 97.4 60 20 150/80 95 Nasal 2.0L Cannula 02/25 2236 95 Nasal 2.0L Cannula 02/25 2201 98.0 56 20 156/71 02/25 2000 96 Nasal 2.0L Cannula 02/25 1600 96 Nasal 2.0L Cannula 02/25 1600 97.5 50 16 130/70 95 Nasal 2.0L Cannula 02/25 1425 150/72 02/25 1424 150/72 02/25 1424 150/72 02/25 1345 94 Nasal 2.0L Cannula 02/25 1345 96.6 51 16 150/80 94 Nasal 2.0L Cannula 02/25 0636 97.7 47 20 130/80 95 Room Air Intake & Output 02/26 0800 02/26 0000 02/25 1600 02/25 0800 02/25 0000 02/24 1600 Intake Total 805 2246 680 600 Output Total 620 390 450 550 Balance 185 1856 -450 130 600 Intake, IV 595 2046 Intake, Oral 210 200 680 600 Number 1 1 Bowel Movements Output, 20 20 Drainage Output, Urine 600 370 450 550 Patient 198 lb Weight Townsend out at pr, voided 400 since DONTAE: 20/shift, serosang SBP cuff: 120s-150s HR: low 50s 93% 3L NC Physical Exam: gen- nad card-s1s2 rrr pulm- ctab abd- soft nt neuro/neck/ext- incision dressing cdi, ttp at incision, some soft edema, dontae in place to good suction w minimal serosang in bulb. no facial droop, tongue midline, sugar cane planter strength intact/equal bue, gross motor intact bl le though rle with decreased strength as compared to left, calves soft nt bl Results Last 48 Hours of Labs: Laboratory Tests 02/26 02/24 02/24 0430 1545 0645 Chemistry Sodium (137 - 145 mmol/L) 139 139 Potassium (3.5 - 5.1 mmol/L) 4.7 4.2 Chloride (98 - 107 mmol/L) 102 104 Carbon Dioxide (22 - 30 mmol/L) 24 23 Anion Gap (5 - 16) 13 12 BUN (9 - 20 mg/dL) 20 27 H Creatinine (0.7 - 1.2 mg/dL) 0.9 0.9 Estimated GFR (>60 ml/min) > 60 > 60 BUN/Creatinine Ratio (7 - 25 %) 30.0 H Glucose (65 - 99 mg/dL) 223 H Calcium (8.4 - 10.2 mg/dL) 8.9 Phosphorus (2.5 - 4.5 mg/dL) 4.1 Magnesium (1.6 - 2.3 mg/dL) 2.1 Total Bilirubin (0.2 - 1.3 mg/dL) 0.8 AST (17 - 59 U/L) 26 ALT (21 - 72 U/L) 45 Albumin (3.5 - 5.0 g/dL) 3.2 L Coagulation PT (9.4 - 12.5 SEC) 12.3 INR (0.90 - 1.17) 1.17 Hematology CBC w Diff Pending NO MAN DIFF REQ WBC (4.8 - 10.8 /CUMM) Pending 9.2 RBC (4.70 - 6.10 /CUMM) Pending 5.31 Hgb (14.0 - 18.0 G/DL) Pending 15.7 Hct (42 - 52 %) Pending 46.1 MCV (80.0 - 94.0 FL) Pending 86.7 MCH (27.0 - 31.0 PG) Pending 29.6 RDW (11.5 - 14.5 %) Pending 14.5 Plt Count (130 - 400 /CUMM) Pending 197 MPV (7.4 - 10.4 FL) Pending 8.5 Gran % (42.2 - 75.2 %) Pending 74.9 Lymphocytes % (20.5 - 51.1 %) Pending 15.4 L Monocytes % (1.7 - 9.3 %) Pending 8.4 Eosinophils % (0 - 5 %) Pending 0.9 Basophils % (0.0 - 2.0 %) Pending 0.4 Absolute Granulocytes (1.4 - 6.5 /CUMM) Pending 6.9 H Absolute Lymphocytes (1.2 - 3.4 /CUMM) Pending 1.4 Absolute Monocytes (0.10 - 0.60 /CUMM) Pending 0.8 H Absolute Eosinophils (0.0 - 0.7 /CUMM) Pending 0.1 Absolute Basophils (0.0 - 0.2 /CUMM) Pending 0 PUBS MCHC (33.0 - 37.0 G/DL) Pending 34.2 Assessment/Plan Assessment/Plan 76M POD1 sp L CEA, stable, with known right weakness at baseline. -ASA 81 mg daily to start today, ALPS -diet as tolerated -townsend now out, I&Os -likely gianluca ALMANZAR this am -OOB, ambualte - rec: HL, po pain meds prn, gianluca conde attending Core Measures Venous Thromboembolism VTE Risk Factors Acute Medical Illness No Mechanical VTE Prophylaxis d/t N/A MechProphylax Ordered No VTE Pharm Prophylaxis d/t NA PharmProphylax ordered
--- NOTE | 2017-02-26 07:32 | PN- Housestaff ---
Mikhail Woods 02/26/17 0732: Subjective Follow-up For: Unwitnessed fall Recent CVA with worsening of Rt sided weakness s/p CEA POD 1 COPD exacerbation. Subjective: Patient reports a little L side neck discomfort but does not feel that he requires pain medication. No acute events overnight. Review of Systems Constitutional: Reports: see HPI. Objective Last 24 Hrs of Vital Signs/I&O Vital Signs Date Time Temp Pulse Resp B/P B/P Pulse O2 O2 Flow FiO2 Mean Ox Delivery Rate 02/26 1320 94 Nasal 2.0L Cannula 02/27 0842 67 128/60 02/27 940 62 128/60 02/26 939 64 128/60 02/26 799 95 Nasal 2.0L Cannula 02/26 799 97.9 64 29 130/80 95 Nasal 2.0L Cannula 02/26 0400 05 Nasal 2.0L Cannula 02/26 0000 95 Nasal 2.0L Cannula 02/26 0000 97.4 60 20 150/80 95 Nasal 2.0L Cannula 02/25 2236 95 Nasal 2.0L Cannula 02/25 2201 98.0 56 20 156/71 02/25 2000 96 Nasal 2.0L Cannula Intake & Output 02/26 1600 02/26 0800 02/26 0000 Intake Total 1710 698 805 Output Total 355 400 620 Balance 1355 298 185 Intake, IV 310 698 595 Intake, Oral 1400 210 Output, 5 20 Drainage Output, Urine 350 400 600 Physical Exam General Appearance: Alert, Oriented X3, Cooperative, No Acute Distress Skin: L-side YOHAN drain with small amounts of serosanguinous fluid HEENT: Atraumatic, PERRLA, EOMI Neck: Supple, No JVD, No thryomegaly Cardiovascular: Regular Rate, Normal S1, Normal S2, No Murmurs Lungs: Clear to Auscultation, Normal Air Movement Abdomen: Normal Bowel Sounds, Soft, No Tenderness Extremities: No Edema Current Medications: Current Medications Sig/Shakir Start time Last Medication Dose Route Stop Time Status Admin Acetaminophen 650 MG Q6P PRN 02/20 1230 AC PO Albuterol Sulfate 3 ML Q4P PRN 02/24 1330 AC INH Amlodipine Besylate 10 MG DAILY 02/21 1000 AC 02/26 PO 09 Aspirin Buffered 81 MG DAILY 02/26 1000 AC 02/26 PO 0941 Atorvastatin Calcium 80 MG 1700 02/21 1700 AC 02/25 PO 1648 Azithromycin 500 MG DAILY 02/23 1000 AC 02/26 PO 02/27 1001 1055 Carvedilol 6.25 MG BID 02/20 1238 AC 02/26 PO 0942 Cefazolin Sodium 2 GM ONCE ONE 02/25 1800 DC 02/25 N/A 1 UNIT IV 02/25 1829 1846 Dextrose/Sodium 1,000 ML Q13H 02/25 0100 DC 02/26 Chloride IV 0400 Docusate Sodium 100 MG DAILY NEEDED PRN 02/20 1245 AC 02/23 PO 0850 Famotidine 20 MG BID PRN 02/20 1245 AC 02/22 PO 2156 Finasteride 5 MG DAILY 02/20 1238 AC 02/26 PO 0940 Guaifenesin 600 MG Q12 02/23 2200 AC 02/26 PO 0941 Ibuprofen 600 MG Q6P PRN 02/20 1230 AC PO Insulin Aspart 0 TIDAC 02/25 1700 AC 02/26 SC 1307 Ipratropium [place] 2.5 ML Q4P PRN 02/24 1330 AC INH Losartan Potassium 100 MG DAILY 02/20 1239 AC 02/26 PO 0941 Morphine Sulfate 1 MG Q4P PRN 02/26 1115 DC IV Oxybutynin Chloride 2.5 MG BID 02/20 1239 AC 02/26 PO 0941 Oxycodone/ 1 TAB Q4P PRN 02/26 1115 DC Acetaminophen PO Prednisone 10 MG DAILY 03/05 1000 AC PO 03/07 1001 Prednisone 20 MG DAILY 03/02 1000 AC PO 03/04 1001 Prednisone 30 MG DAILY 02/27 1000 AC PO 03/01 1001 Prednisone 40 MG DAILY 02/24 1000 DC 02/26 PO 02/26 1001 0940 Tamsulosin HCl 0.4 MG DAILY 02/20 1239 AC 02/26 PO 0941 Tramadol HCl 50 MG Q6 PRN 02/26 1200 AC PO Last 24 Hrs of Lab/Christiano Results Last 24 Hrs of Labs/Mics: Laboratory Tests 02/26/17 0430: Anion Gap 13, Estimated GFR > 60, Glucose 223 H, Calcium 8.9, Phosphorus 4.1, Magnesium 2.1, Total Bilirubin 0.8, AST 26, ALT 45, Albumin 3.2 L, CBC w Diff NO MAN DIFF REQ, RBC 4.95, MCV 86.5, MCH 29.3, RDW 14.4, MPV 8.2, Gran % 84.7 H , Lymphocytes % 7.0 L, Monocytes % 7.8, Eosinophils % 0.4, Basophils % 0.1, Absolute Granulocytes 9.7 H, Absolute Lymphocytes 0.8 L, Absolute Monocytes 0.9 H, Absolute Eosinophils 0, Absolute Basophils 0, PUBS MCHC 33.9 Assessment/Plan Assessment: Mr. Tipton is a 76-year-old male with past medical history significant for CVA about a month ago, ischemic cardiomyopathy, CAD status post CABG with triple vessel bypass, hypertension, COPD, cholangiocarcinoma status post to CBD stents, diabetes, BPH, A. fib status post maze procedure not on any anticoagulation, who comes in for chief complaint of fall. Active issues: 1. Fall/gait instability 2. Nonspecific EKG changes 3. R-sided weakness s/p CEA POD 1 4. Acute hypoxic respiratory failure 2/2 COPD 5. History of HTN, BPH Plan: * Physical therapy consult and evaluation * TRC/nebs PRN * Neuro records from [place] (in chart) * Serial neuro exams * MRI reveals subacute infarct in Lt thalamus * Continue Atorvastatin, amlodipine * Novolog accuchecks and SS * Continue Benicar, Vesicare and Flomax * MRA positive for Focal severe stenosis involving the proximal right internal carotid artery. Focal moderate to high-grade stenosis involving the proximal left internal carotid artery. Focal moderate or high-grade stenosis at the origin of the dominant left vertebral artery. * Repeat ECG showed nonspecific changes * Chest x-ray shows hazy bibasilar opacities, and low lung volumes without definite acute pulmonary disease. Flu swab was negative. * Discontinue IVF * Continue holding parameters for Carvedilol * Continue Azithromycin 4/5 and Prednisone taper * Pain pathway: Tylenol, Motrin, Tramadol * Plavix on hold until ok to resume as per Vascular * Vascular recommendations appreciated * Cardiology recommendations appreciated Patient is DNR and DNI. Problem List: 1. COPD exacerbation 2. EKG abnormalities 3. Fall Pain Ratin Pain Location: NA Pain Goal: Remain pain free Pain Plan: Tylenol, Motrin, Tramadol Tomorrow's Labs & Rationales: CBC, Bundle Nelida ALVAREZ,Rula 01/09/18 1232: Attending MD Review Statement Attending Statement Attending MD Statement: examined this patient, discuss w/resident/PA/SPORTS COMMENTATOR, agreed w/resident/PA/SPORTS COMMENTATOR, reviewed EMR data (avail), discussed with nursing, discussed with case mgmt, amended to note Attending Assessment/Plan: Patient seen and examined. Resting comfortably and not in acute distress. No issues overnight. No new complaints this morning. Complains of some soreness of the left neck. Denies chest pain. Denies palpitations. He has remained in sinus rhythm overnight with heart rate ranging occasionally in the 50s. On examination he has an intact YOHAN drain on the left side of the neck draining serosanguineous fluid. Heart sounds are regular with no audible murmur. Lungs are clear bilaterally. Abdomen soft and nontender. He has no peripheral edema. He has been cleared by the surgical service and restart aspirin. Plavix remains on hold. Recommendations: -Advance diet. -Physical therapy consultation to mobilize patient. -Downgrade to the telemetry service. -Continue aspirin and statin. Follow-up with surgical service regarding when patient may be resumed on Plavix. -Begin discharge planning based on recommendations from the physical therapy service. Please notify the case management service.
[2017-02-26 08:00] VITALS: BP 130/80
--- NOTE | 2017-02-26 09:42 | PN- Cardiology ---
Subjective Subjective: The patient is awake, alert The events of the last 24 hours as well as telemetry were reviewed. Review of Systems: The review of systems is negative for chest pains, palpitations nor lightheadedness. The remainder of the 14 point review of systems is noncontributory with the exception of above. Objective Vital Signs and I&Os Vital Signs Date Time Temp Pulse Resp B/P B/P Pulse O2 O2 Flow FiO2 Mean Ox Delivery Rate 02/26 799 97.9 64 29 130/80 95 Nasal 2.0L Cannula 02/26 0400 05 Nasal 2.0L Cannula 02/26 0000 95 Nasal 2.0L Cannula 02/26 0000 97.4 60 20 150/80 95 Nasal 2.0L Cannula 02/25 2236 95 Nasal 2.0L Cannula 02/25 2201 98.0 56 20 156/71 02/25 2000 96 Nasal 2.0L Cannula 02/25 1600 96 Nasal 2.0L Cannula 02/25 1600 97.5 50 16 130/70 95 Nasal 2.0L Cannula 02/25 1425 150/72 02/25 1424 150/72 02/25 1424 150/72 02/25 1345 94 Nasal 2.0L Cannula 02/25 1345 96.6 51 16 150/80 94 Nasal 2.0L Cannula Intake & Output 02/26 1600 02/26 0000 02/25 1600 02/25 0802/25 0000 Intake Total 434 999 0983 680 Output Total 400 620 390 450 550 Balance 067 104 2429 -450 130 Intake, IV 426 537 7955 Intake, Oral 210 200 680 Number 1 Bowel Movements Output, 20 20 Drainage Output, Urine 400 600 370 450 550 Patient 198 lb Weight Physical Exam: General: Nontoxic, no apparent distress. HEENT: Sclera and conjunctiva within normal limits, without xanthelasmas. Neck: Carotids 2+ without bruits. Respiratory: Clear to auscultation, air movement is good, without accessory respiratory muscle use. Heart: Regular rate and rhythm, without murmurs, without JVD, status post left carotid endarterectomy, bandaged. Abdomen: Soft, nontender, no masses, normoactive bowel sounds. Extremities: Without clubbing, cyanosis, without edema. Neuro: Nonfocal exam, strength, 5 out of 5 Skin: Within normal limits without lesions. Psych: Mood and affect: Normal Current Medications: Current Medications Sig/Shakir Start time Last Medication Dose Route Stop Time Status Admin Acetaminophen 650 MG Q6P PRN 02/20 1230 AC PO Albuterol Sulfate 3 ML Q4P PRN 02/24 1330 AC INH Amlodipine Besylate 10 MG DAILY 02/21 1000 AC 02/25 PO 1424 Aspirin 81 MG DAILY 02/20 1235 DC 02/24 PO 0852 Aspirin Buffered 81 MG DAILY 02/26 1000 AC PO Atorvastatin Calcium 80 MG 1700 02/21 1700 AC 02/25 PO 1648 Azithromycin 500 MG DAILY 02/23 1000 AC 02/25 PO 02/27 1001 1648 Carvedilol 6.25 MG BID 02/20 1238 AC 02/24 PO 2117 Cefazolin Sodium 2 GM ONCE ONE 02/25 1800 DC 02/25 N/A 1 UNIT IV 02/25 1829 1846 Dextrose/Sodium 1,000 ML Q13H 02/25 0100 AC 02/26 Chloride IV 0400 Docusate Sodium 100 MG DAILY NEEDED PRN 02/20 1245 AC 02/23 PO 0850 Enoxaparin Sodium 40 MG DAILY 02/20 1233 DC 02/24 SC 0854 Famotidine 20 MG BID PRN 02/20 1245 AC 02/22 PO 2156 Finasteride 5 MG DAILY 02/20 1238 AC 02/25 PO 1423 Guaifenesin 600 MG Q12 02/23 2200 AC 02/25 PO 2201 Ibuprofen 600 MG Q6P PRN 02/20 1230 AC PO Insulin Aspart 0 TIDAC 02/25 1700 AC 02/26 MD 0806 Insulin Human Regular 0 Q6 02/24 2359 [place] 02/25 SC 0632 Ipratropium [place] 2.5 ML Q4P PRN 02/24 1330 AC INH Losartan Potassium 100 MG DAILY 02/20 1239 AC 02/25 PO 1425 Oxybutynin Chloride 2.5 MG BID 02/20 1239 AC 02/25 PO 2201 Prednisone 10 MG DAILY 03/05 1000 AC PO 03/07 1001 Prednisone 20 MG DAILY 03/02 1000 AC PO 03/04 1001 Prednisone 30 MG DAILY 02/27 1000 AC PO 03/01 1001 Prednisone 40 MG DAILY 02/24 1000 AC 02/25 PO 02/26 1001 1424 Tamsulosin HCl 0.4 MG DAILY 02/20 1239 AC 02/25 PO 1424 Results Last 48 Hrs of Labs/Mics: Laboratory Tests 02/26/17 0430: Anion Gap 13, Estimated GFR > 60, Glucose 223 H, Calcium 8.9, Phosphorus 4.1, Magnesium 2.1, Total Bilirubin 0.8, AST 26, ALT 45, Albumin 3.2 L, CBC w Diff NO MAN DIFF REQ, RBC 4.95, MCV 86.5, MCH 29.3, RDW 14.4, MPV 8.2, Gran % 84.7 H , Lymphocytes % 7.0 L, Monocytes % 7.8, Eosinophils % 0.4, Basophils % 0.1, Absolute Granulocytes 9.7 H, Absolute Lymphocytes 0.8 L, Absolute Monocytes 0.9 H, Absolute Eosinophils 0, Absolute Basophils 0, PUBS MCHC 33.9 02/24/17 1545: PT 12.3, INR 1.17 Assessment/Plan Assessment/Plan 76-year-old gentleman with a past medical history of coronary artery disease, diabetes mellitus, atrial fibrillation (on anticoagulation), COPD and a cholangiocarcinoma. He presented to our emergency room with a fall, secondary to a stated mechanical etiology. He is now status post carotid endarterectomy from 02/25/2017 1. COPD with exacerbation 2. Fall with recurrent CVA and bilateral carotid artery disease, status post left carotid endarterectomy 3. Coronary artery disease status post three-vessel CABG in 2014 4. Paroxysmal atrial fibrillation status post MAZE/left atrial appendage ligation with no recurrent A. fib on subsequent implantable loop recorder ( subsequently explanted) 5. Cholangiocarcinoma with previous biliary stent 6. Ischemic cardiomyopathy with subsequent ejection fraction recovery 7. Hypertensive/hyperlipidemia The patient is doing overall well status post carotid endarterectomy, and we will continue his current medication regimen As he has had no recurrence of atrial fibrillation on a loop recorder, and given he has had a left atrial appendage ligation with his maze procedure, he will remain off full anticoagulation at this time. We will track and closely titrate his blood pressure regimen. Continue telemetry? Yes
[2017-02-26 16:00] VITALS: BP 118/84
--- NOTE | 2017-02-26 17:23 | Operative Report ---
Operative/Inv Procedure Report Surgery Date: 02/25/17 Name of Procedure: Left carotid endarterectomy Pre-Operative Diagnosis: Symptomatic left internal carotid stenosis Post-Operative Diagnosis: Same Estimated Blood Loss: 50ml to 100ml Surgeon/Supervisor [place]: SURGEON: DESIRAE OVERTON MD MILLWRIGHT: MICHAELA SILVA MD Anesthesia: general endotracheal tube Operative/Procedure Note Note: 76-year-old man who presented with slurred speech and right-sided weakness and found to have an acute left hemispheric small infarcts. Carotid ultrasound and CTA of the neck showed 70% stenosis of the left ICA. The patient was scheduled for left carotid endarterectomy. The nature of the operation including is possible complications including but not limited to bleeding, infection, stroke, heart attack, blood clots, and need for re-intervention were discussed. An informed consent was obtained. Patient was taken to the operating room and placed supine on the table. A timeout was called according to protocol. Perioperative antibiotic had been started. After satisfactory induction of anesthesia, a Addison catheter was placed. The patient was then prepped and draped in standard surgical fashion. Using a scalpel, an incision was made in the anterior border of the left sternocleidomastoid muscle. The incision was carried down through the subcutaneous venous tissue and fascia using electrocautery. Sharp dissection with Metzenbaum scissors continued when I got close to the artery. Common carotid artery was sharp dissected and an umbilical tape was encircled around it. Sharp dissection continued in the cephalad direction. The external carotid and superior thyroid artery was dissected and vessel loops were encircled around these vessels. Again dissection continued over the ICA. The hypoglossal nerve was identified and care was taken not to this nerve. Distal controls on the ICA was also performed with umbilical tape. 8000 units of heparin was given. Because of the patient's 80% stenosis of the right ICA, my plan was to shunt the left repair. After 3 minutes was passed, a Warren clamp was placed on the distal ICA for distal control. External carotid, superior thyroid artery vessel loops were for control. An angled Silvina-Hydragrip clamp was then placed on the common carotid artery. Using an 11 blade, an arteriotomy was made over the slow common carotid artery. The arteriotomy was extended using Johnson scissors. Based on CAT scan, the patient had a tandem lesion about 4 cm above the bifurcation. As such, the arteriotomy continued over the ICA and a focal plaque was encountered. An Tram shunt was then used. Endarterectomy was performed using the Sullivan elevator. The plaque was then sent off the field as specimen. The loose debris's were then removed. Tacking sutures of 7-0 Prolene was used to tack the distal intima. Then a bovine patch was used to sew the patch with 6 -0 Prolene suture. At the completion of the patch, the shunt was removed. The patch was copiously irrigated with heparinized saline solution. The completion of the patch, Doppler showed great normal flow into the ICA after the patch and normal flow into the ECA. Hemostasis was obtained. There was some general ooze. As such, I decided to leave a Tre drain. A small incision over the neck was made and a Tre drain was placed into the wound. The drain was secured to the skin with 3-0 nylon suture. The count at the end the case was correct. The wound was then closed with 3-0 Vicryl suture closing the platysmal layer. The skin was then closed with kalani. Sterile dressing was applied. Upon awakening in the OR, the patient was able to move all extremities. The patient was then taken to the PACU in stable condition.
--- NOTE | 2017-02-26 17:26 | PN- Vascular Surgery ---
Surgical Brief Attending Note Brief Attending Note: POD 1 LEFT CEA COMFORTABLE IN BED EATING SUPPER DRAIN CAME OUT NEURO INTACT NO NECK HEMATOMA NO DIFFICULTY SWALLOWING OR BREATHING ASPIRING 81MG DAILY.
[2017-02-26 22:15] VITALS: BP 150/70
[2017-02-27 06:36] VITALS: BP 138/72
[2017-02-27 07:55] LABS: ABSOLUTE BASOPHIL COUNT 0 /CUMM (0.0-0.2); ABSOLUTE EOSINOPHIL COUNT 0.1 /CUMM (0.0-0.7); ABSOLUTE GRANULOCYTE CT 9.1 /CUMM (1.4-6.5); ABSOLUTE LYMPH COUNT 1.2 /CUMM (1.2-3.4); ABSOLUTE MONOCYTE COUNT 0.9 /CUMM (0.10-0.60); BASOPHIL % 0.2 % (0.0-2.0); EOSINOPHIL % 1.3 % (0-5); GRANULOCYTE % 80.2 % (42.2-75.2); HEMATOCRIT 39.3 % (42-52); MEAN CORPUSCULAR HGB 29.5 PG (27.0-31.0); MEAN CORPUSCULAR HGB CONC 34.2 G/DL (33.0-37.0); MEAN CORPUSCULAR VOLUME 86.2 FL (80.0-94.0); MEAN PLATELET VOLUME 8.3 FL (7.4-10.4); PLATELET COUNT 206 /CUMM (130-400); RBC DISTRIBUTION WIDTH 14.3 % (11.5-14.5); RED BLOOD CELL CT 4.56 /CUMM (4.70-6.10); WHITE BLOOD CELL COUNT 11.3 /CUMM (4.8-10.8)
--- NOTE | 2017-02-27 08:43 | PN- Vascular Surgery ---
Subjective Subjective: No complaints, feeling well, no worsening weakness, headache, nv, speech diff or diff swallowing. Objective Vital Signs and I&Os Vital Signs Date Time Temp Pulse Resp B/P B/P Pulse O2 O2 Flow FiO2 Mean Ox Delivery Rate 02/27 0536 98.5 54 20 138/72 96 Nasal 2.0L Cannula 02/27 0000 Nasal 2.0L Cannula 02/26 2215 97.8 58 20 150/70 95 02/26 2125 53 150/70 02/26 1906 95 Nasal 2.0L Cannula 02/26 1600 97.6 64 18 118/84 97 Nasal 2.0L Cannula 02/26 1600 95 Nasal 2.0L Cannula 02/26 1320 94 Nasal 2.0L Cannula 02/26 0942 67 128/60 02/27 0841 62 128/60 02/27 0840 64 128/60 Intake & Output 02/27 1600 02/27 0800 02/27 0000 02/26 1600 02/26 0800 02/26 0000 Intake Total 971 663 5061 698 805 Output Total 450 650 355 400 620 Balance -698 03 8941 298 185 Intake, IV 10 310 698 595 Intake, Oral 297 735 6052 210 Output, 5 20 Drainage Output, Urine 450 650 350 400 600 Physical Exam: gen- nad neck- mild swelling at L CEA site, dressing with trace dry serous drainage. trachea midline. swallowing w/o diff. no facial droop, tongue midline, executive coach strength intact/equal bue, gross motor intact bl le though rle with decreased strength as compared to left (baseline pre op) Assessment/Plan Assessment/Plan pod2 sp L CEA cont asa 81mg daily dressing changes prn stable for dc from vascular standpoint, fup in 1 week as out pt.
--- NOTE | 2017-02-27 11:04 | PN- Cardiology ---
Subjective Subjective: Resting comfortably with no chest pain, dyspnea, or palpitations. Objective Vital Signs and I&Os Vital Signs Date Time Temp Pulse Resp B/P B/P Pulse O2 O2 Flow FiO2 Mean Ox Delivery Rate 02/27 957 Nasal 2.0L Cannula 02/27 942 Nasal 2.0L Cannula 02/28 924 54 138/72 02/27 0924 54 138/72 02/27 0924 138/72 02/27 0636 98.5 54 20 138/72 96 Nasal 2.0L Cannula 02/27 0000 Nasal 2.0L Cannula 02/26 2215 97.8 58 20 150/70 95 02/26 2125 53 150/70 02/26 1906 95 Nasal 2.0L Cannula 02/26 1600 97.6 64 18 118/84 97 Nasal 2.0L Cannula 02/26 1600 95 Nasal 2.0L Cannula 02/26 1320 94 Nasal 2.0L Cannula Intake & Output 02/27 1600 02/27 0800 02/27 0000 02/26 1600 02/26 0800 02/26 0000 Intake Total 544 621 7193 698 805 Output Total 450 650 355 400 620 Balance -366 48 3944 298 185 Intake, IV 10 310 698 595 Intake, Oral 353 968 5044 210 Output, 5 20 Drainage Output, Urine 450 650 350 400 600 Physical Exam: General: no apparent distress. Alert. Eyes: No obvious scleral icterus. HEENT: No jugular venous distention; left-sided bandage Cardiovascular: Normal intensity S1/S2. Regular. Respiratory: Scattered bilateral wheezes Abdomen: Soft, nontender with no guarding or rebound tenderness. Musculoskeletal: No clubbing or cyanosis noted; No edema Skin: Warm Neurologic: Normal speech Current Medications: Current Medications Sig/Shakir Start time Last Medication Dose Route Stop Time Status Admin Acetaminophen 650 MG Q6P PRN 02/20 1230 AC PO Al Hydroxide/Mg 30 ML .STK-MED ONE 02/26 1827 DC Hydroxide PO 02/27 1828 Al Hydroxide/Mg 30 ML ONCE ONE 02/26 1814 DC 02/26 Hydroxide PO 02/26 Albuterol Sulfate 3 ML Q4P PRN 02/24 1330 AC INH Amlodipine Besylate 10 MG DAILY 02/21 1000 AC 02/27 PO 924 Aspirin Buffered 81 MG DAILY 02/26 1000 AC 02/27 PO 0924 Atorvastatin Calcium 80 MG 1700 02/21 1700 AC 02/26 PO 1650 Azithromycin 500 MG DAILY 02/23 1000 DC 02/27 PO 02/27 1001 0925 Carvedilol 6.25 MG BID 02/20 1238 AC 02/27 PO 0924 Docusate Sodium 100 MG DAILY NEEDED PRN 02/20 1245 AC 02/23 PO 0850 Famotidine 20 MG BID PRN 02/20 1245 AC 02/22 PO 2156 Finasteride 5 MG DAILY 02/20 1238 AC 02/27 PO 0925 Guaifenesin 600 MG Q12 02/23 2200 AC 02/27 PO 0925 Ibuprofen 600 MG Q6P PRN 02/20 1230 AC PO Insulin Aspart 0 TIDAC 02/25 1700 AC 02/26 SC 1650 Ipratropium [place] 2.5 ML Q4P PRN 02/24 1330 AC INH Losartan Potassium 100 MG DAILY 02/20 1239 AC 02/27 PO 0924 Morphine Sulfate 1 MG Q4P PRN 02/26 1115 DC IV Oxybutynin Chloride 2.5 MG BID 02/20 1239 AC 02/27 PO 0924 Oxycodone/ 1 TAB Q4P PRN 02/26 1115 DC Acetaminophen PO Prednisone 10 MG DAILY 03/05 1000 AC PO 03/07 1001 Prednisone 20 MG DAILY 03/02 1000 AC PO 03/04 1001 Prednisone 30 MG DAILY 02/27 1000 AC 02/27 PO 03/01 1001 0925 Tamsulosin HCl 0.4 MG DAILY 02/20 1239 AC 02/27 PO 0924 Tramadol HCl 50 MG Q6 PRN 02/26 1200 AC PO Results Last 48 Hrs of Labs/Mics: Laboratory Tests 02/27/17 0635: Anion Gap 11, Estimated GFR > 60, Glucose 135 H, Calcium 8.7, Phosphorus 3.0, Magnesium 2.1, Total Bilirubin 0.7, AST 18, ALT 43, Albumin 3.1 L, CBC w Diff NO MAN DIFF REQ, RBC 4.56 L, MCV 86.2, MCH 29.5, RDW 14.3, MPV 8.3, Gran % 80.2 H, Lymphocytes % 10.5 L, Monocytes % 7.8, Eosinophils % 1.3, Basophils % 0.2, Absolute Granulocytes 9.1 H, Absolute Lymphocytes 1.2, Absolute Monocytes 0.9 H, Absolute Eosinophils 0.1, Absolute Basophils 0, PUBS MCHC 34.2 02/26/17 0430: Anion Gap 13, Estimated GFR > 60, Glucose 223 H, Calcium 8.9, Phosphorus 4.1, Magnesium 2.1, Total Bilirubin 0.8, AST 26, ALT 45, Albumin 3.2 L, CBC w Diff NO MAN DIFF REQ, RBC 4.95, MCV 86.5, MCH 29.3, RDW 14.4, MPV 8.2, Gran % 84.7 H , Lymphocytes % 7.0 L, Monocytes % 7.8, Eosinophils % 0.4, Basophils % 0.1, Absolute Granulocytes 9.7 H, Absolute Lymphocytes 0.8 L, Absolute Monocytes 0.9 H, Absolute Eosinophils 0, Absolute Basophils 0, PUBS MCHC 33.9 Microbiology 02/25 1400 UPPER RESP: Surveillance Culture - COMP 02/25 1399 GI: Surveillance Culture - COMP Recent Imaging Studies: Telemetry tracings were personally reviewed and shows sinus rhythm and sinus bradycardia Assessment/Plan Assessment/Plan 1. COPD with exacerbation 2. Fall with recurrent CVA and bilateral carotid artery disease; s/p Left CEA 3. Coronary artery disease status post three-vessel CABG in 2014 4. Paroxysmal atrial fibrillation status post MAZE/left atrial appendage ligation with no recurrent A. fib on subsequent implantable loop recorder ( subsequently explanted) 5. Cholangiocarcinoma with previous biliary stent 6. Ischemic cardiomyopathy with subsequent ejection fraction recovery 7. Hypertensive/hyperlipidemia Remains hemodynamically stable status post surgery. Remains euvolemic on exam. Continue on current cardiac regimen. May need STR depending on physical therapy evaluation. COPD management per the medical team. The patient should follow-up in our office after discharge. Faisal Manning MD [facility] Continue telemetry? No
--- NOTE | 2017-02-27 13:10 | PN- Housestaff ---
Orly Coburn 02/27/17 1310: Subjective Follow-up For: Unwitnessed fall Recent CVA with worsening of Rt sided weakness. Status post left carotid endarterectomy. Dyspnea/COPD exacerbation Subjective: Patient was seen and examined. He offers no complaints. Denies headache, nausea, vomiting, dizziness, lightheadedness, chest pain, shortness of breath, palpitation, abdominal pain, urinary symptoms. YOHAN drain has been discontinued from the neck. No events reported. Review of Systems Constitutional: Reports: no symptoms. Objective Last 24 Hrs of Vital Signs/I&O Vital Signs Date Time Temp Pulse Resp B/P B/P Pulse O2 O2 Flow FiO2 Mean Ox Delivery Rate 02/27 1512 98.5 54 20 138/72 02/27 1328 93 Room Air Room Air 02/27 0958 Nasal 2.0L Cannula 02/27 0943 Nasal 2.0L Cannula 02/27 0925 54 138/72 02/27 0924 54 138/72 02/27 0924 138/72 02/27 0636 98.5 54 20 138/72 96 Nasal 2.0L Cannula 02/27 0000 Nasal 2.0L Cannula 02/26 2215 97.8 58 20 150/70 95 02/26 2125 53 150/70 02/26 1906 95 Nasal 2.0L Cannula Intake & Output 02/27 1600 02/27 0800 02/27 0000 Intake Total 500 110 690 Output Total 600 450 650 Balance -100 -340 40 Intake, IV 10 Intake, Oral 500 100 690 Output, Urine 600 450 650 Physical Exam General Appearance: Alert, Oriented X3, Cooperative, No Acute Distress Other Physical Findings: Skin: No Rashes HEENT: Atraumatic, PERRLA, EOMI, Mucous Membr. moist/pink Neck: Supple, No JVD, No thryomegaly, No LAD, slight carotid bruits b/l, mild inflammation and tenderness at the site of YOHAN drain which is now removed. 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 Strength 4/5 in right upper and lower extremity. 5/5 in left upper and lower extremity Otherwise strength and ROM intact Extremities: No Clubbing, No Cyanosis, No Edema, Normal Pulses, No Tenderness/ Swelling Vascular: Normal Pulses, Pulses Symmetrical Current Medications: Current Medications Sig/Shakir Start time Last Medication Dose Route Stop Time Status Admin Acetaminophen 650 MG Q6P PRN 02/20 1230 DCD PO Al Hydroxide/Mg 30 ML .STK-MED ONE 02/26 1827 DC Hydroxide PO 02/26 182 Albuterol Sulfate 3 ML Q4P PRN 02/24 1330 DCD INH Amlodipine Besylate 10 MG DAILY 02/21 1000 DCD 02/27 PO 0925 Aspirin Buffered 81 MG DAILY 02/26 1000 DCD 02/27 PO 0924 Atorvastatin Calcium 80 MG 1700 02/21 1700 DCD 02/26 PO 1650 Azithromycin 500 MG DAILY 02/23 1000 DC 02/27 PO 02/27 1001 0925 Carvedilol 6.25 MG BID 02/20 1238 DCD 02/27 PO 0924 Docusate Sodium 100 MG DAILY NEEDED PRN 02/20 1245 DCD 02/23 PO 0850 Famotidine 20 MG BID PRN 02/20 1245 DCD 02/22 PO 2156 Finasteride 5 MG DAILY 02/20 1238 DCD 02/27 PO 0925 Guaifenesin 600 MG Q12 02/23 2200 DCD 02/27 PO 0925 Ibuprofen 600 MG Q6P PRN 02/20 1230 DCD PO Insulin Aspart 0 TIDAC 02/25 1700 DCD 02/27 SC 1205 Ipratropium [place] 2.5 ML Q4P PRN 02/24 1330 DCD INH Losartan Potassium 100 MG DAILY 02/20 1239 DCD 02/27 PO 0924 Oxybutynin Chloride 2.5 MG BID 02/20 1239 DCD 02/27 PO 0924 Prednisone 10 MG DAILY 03/05 1000 DCD PO 03/07 1001 Prednisone 20 MG DAILY 03/02 1000 DCD PO 03/04 1001 Prednisone 30 MG DAILY 02/27 1000 DCD 02/27 PO 03/01 1001 0925 Tamsulosin HCl 0.4 MG DAILY 02/20 1239 DCD 02/27 PO 0924 Tramadol HCl 50 MG Q6 PRN 02/26 1200 DCD PO Last 24 Hrs of Lab/Christiano Results Last 24 Hrs of Labs/Mics: Laboratory Tests 02/27/17 0635: Anion Gap 11, Estimated GFR > 60, Glucose 135 H, Calcium 8.7, Phosphorus 3.0, Magnesium 2.1, Total Bilirubin 0.7, AST 18, ALT 43, Albumin 3.1 L, CBC w Diff NO MAN DIFF REQ, RBC 4.56 L, MCV 86.2, MCH 29.5, RDW 14.3, MPV 8.3, Gran % 80.2 H, Lymphocytes % 10.5 L, Monocytes % 7.8, Eosinophils % 1.3, Basophils % 0.2, Absolute Granulocytes 9.1 H, Absolute Lymphocytes 1.2, Absolute Monocytes 0.9 H, Absolute Eosinophils 0.1, Absolute Basophils 0, PUBS MCHC 34.2 Assessment/Plan Assessment: This is a 76-year-old male with past medical history significant for CVA about one month prior to presentation, ischemic cardiomyopathy, bilateral carotid artery disease, CAD status post CABG with triple vessel bypass and stent placement x3, hypertension, COPD, cholangiocarcinoma status post to CBD stents, diabetes not on medication, BPH, A. fib status post maze procedure not on any anticoagulation, who presented to the hospital after an episode of fall. Problem list/plan: #Fall/gait instability:The patient underwent Physical therapy consult and evaluation. We obtained records from [facility]. It was noted that right-sided weakness is worsening. MRI and MRA of the head/neck were ordered. MRI reveals subacute infarct in Lt thalamus; unclear if it is new finding given his recent h/o CVA. Findings were compared to records from [facility]. Did not seem to be a new infarct. The patient was evaluated by neurology. Neurologist Dr. Mtz spoke w/attending Dr. Nelida schmidt recommended adding plavix. Statin was added. MRA was positive for Focal severe stenosis involving the proximal right internal carotid artery. Focal moderate to high-grade stenosis involving the proximal left internal carotid artery. Focal moderate or high- grade stenosis at the origin of the dominant left vertebral artery. The patient was seen by vascular surgery and underwent left carotid endarterectomy on 02/25/2017. He tolerated the procedure well. He was monitored in the ICU after the procedure and was downgraded to telemetry on 11/2017. Later on, Plavix was discontinued, per evaluation of cardiology and vascular, as patient had MAZE/left atrial appendage ligation with no recurrent A. fib. For the same reason, they did not recommend anticoagulation. He should follow up with vascular surgeon within 1 week of discharge. #Shortness of breath: Chest x-ray shows hazy bibasilar opacities, and low lung volumes without definite acute pulmonary disease. Flu swab was negative. Patient does have a history of COPD. He is a former smoker with a 2 pack per day habit but quit 30 years ago. On physical exam he was diffusely wheezy with diminished air movement. He got 1 dose of azithromycin ceftriaxone for treatment of pneumonia in ED. * C/w by mouth prednisone taper. * Completed a five-day course of azithromycin therapy. #Nonspecific EKG changes Troponin negative. Cardiology consulted. Per cardiology, he had a recent outpatient echocardiogram showed normal ejection fraction a repeat echo cardiac is not required at this time. #Paroxysmal atrial fibrillation status post MAZE/left atrial appendage ligation with no recurrent A. fib on subsequent implantable loop recorder (subsequently explanted) * Cardiology recommendations appreciated. #Hypertension: Patient had blood pressure 150/68 and subsequently 171/77. He was noted to be bradycardic with heart rate down to 50. * Continue with amlodipine 10 mg and carvedilol 6.25, with hold parameters for heart rate. * Continuous losartan on #History of diabetes: Diet-controlled at home, required a few doses of NovoLog while on steroids inpatient. Blood glucose levels were monitored closely and remained stable. #BPH: C/w home medications. #Code Status: Patient is DNR and DNI. Problem List: 1. Atrial fibrillation 2. Fall Pain Ratin Pain Location: NA Pain Goal: Remain pain free Pain Plan: NA Tomorrow's Labs & Rationales: CAMILLE Krause MD,Rula 02/27/17 1545: Attending MD Review Statement Attending Statement Attending MD Statement: examined this patient, discuss w/resident/PA/NUCLEAR SPECTROSCOPIST, agreed w/resident/PA/NUCLEAR SPECTROSCOPIST, discussed with family, reviewed EMR data (avail), discussed with nursing, discussed with case mgmt, amended to note Attending Assessment/Plan: Patient seen and examined. Resting comfortably and not in any acute distress. No issues overnight. No new complaints this morning. Reports mild nonproductive cough. Denies chest pain. Denies palpitations. He is afebrile and hemodynamically stable. On examination of the YOHAN drain has been discontinued from the neck. He has some inflammation on the with mild tenderness on examination. Heart sounds are regular. Lungs are clear to auscultation bilaterally with good air entry. Abdomen is soft and nontender. He has no peripheral edema. Power is 5/5 left upper and lower extremities 4/5 right upper and lower extremities. Recommendations: -Patient is medically stable to be discharged today. -Has remained in sinus rhythm with no evidence of atrial fibrillation. Cardiology service is recommending discontinuation of Plavix. Patient to continue on Aspirin only for antiplatelet therapy. -He will be discharged to a he will be shelter facility on recommendation of the physical therapy service for short-term rehabilitation.
--- NOTE | 2017-02-27 13:38 | Discharge Summary ---
Visit Information Visit Dates Admission Date: 02/20/17 Discharge Date: 02/27/17 Hospital Course Course Attending Physician: Rula Krause MD Primary Care Physician: Gabriella Davenport MD Consulting Request: 1 Consulting Specialty: Cardiology Consulting Request: 2 Consulting Specialty: Neurology Consulting Request: 3 Consulting Specialty: Thoracic/Vascular Surgery Hospital Course: This is a 76-year-old male with past medical history significant for CVA about one month prior to presentation, ischemic cardiomyopathy, bilateral carotid artery disease, CAD status post CABG with triple vessel bypass and stent placement x3, hypertension, COPD, cholangiocarcinoma status post to CBD stents, diabetes not on medication, BPH, A. fib status post maze procedure not on any anticoagulation, who presented to the hospital after an episode of fall. Physical exam on admission: Temperature 97.8, pulse rate 55, respiratory rate 20 , blood pressure 156/74, oxygen saturation 100% on room air. General Appearance Alert, Oriented X3, Cooperative, No Acute Distress Skin No Significant Lesion HEENT Atraumatic, PERRLA, EOMI, mucous membranes dry Neck Supple Cardiovascular Regular Rate Lungs diffusely wheezy, diminished air movement Abdomen No Tenderness Neurological r.sided weakness Extremities No Edema, No Tenderness/ Swelling Pertinent labs on admission:02/20/17 1003: Urinalysis LIGHT H, Urine Color YEL, Urine Clarity HAZY H, Urine pH 6.0, Ur Specific [place] 1.025, Urine Protein TRACE H, Urine Ketones NEG, Urine Nitrite POS H, Urine Bilirubin NEG, Urine Urobilinogen 0.2, Ur Leukocyte Esterase SMALL H, Ur Microscopic SEDIMENT EXAMINED, Urine RBC 1-3, Urine WBC 25-50 H, Ur Epithelial Cells RARE, Urine Bacteria MANY H, Granular Casts RARE H, Urine Mucus FEW, Urine Hemoglobin SMALL H, Urine Glucose NEG 02/20/17 0832: RBC 5.08, MCV 86.5, MCH 29.2, RDW 14.8 H, MPV 7.9, Gran % 76.5 H, Lymphocytes % 10.6 L, Monocytes % 10.4 H, Eosinophils % 2.1, Basophils % 0.4, Absolute Granulocytes 5.0, Absolute Lymphocytes 0.7 L, Absolute Monocytes 0.7 H, Absolute Eosinophils 0.1, Absolute Basophils 0, PUBS MCHC 33.8 02/20/17 0732: Anion Gap 15, Estimated GFR > 60, BUN/Creatinine Ratio 23.0, Glucose 139 H, Calcium 9.2, Total Bilirubin 1.0, AST 27, ALT 28, Alkaline Phosphatase 76, Troponin I 0.02, Total Protein 7.8, Albumin 4.0, Globulin 3.8, Albumin/Globulin Ratio 1.1 Pertinent imaging on admission: Head CT:Small areas of hypoattenuation within the left frontal lobe, which have developed in the interval since 10/11/2016, suspicious for small left MCA territory infarcts, age indeterminate. MRI would be more sensitive in the detection of acute brain ischemia. No hemorrhage. Chest x-ray did not reveal any acute pathology. He was admitted to telemetry floor for further evaluation. The following problems were addressed: #Fall/gait instability:The patient underwent Physical therapy consult and evaluation. We obtained records from [facility]. It was noted that right-sided weakness is worsening. MRI and MRA of the head/neck were ordered. MRI reveals subacute infarct in Lt thalamus; unclear if it is new finding given his recent h/o CVA. Findings were compared to records from [facility]. Did not seem to be a new infarct. The patient was evaluated by neurology. Neurologist Dr. Mtz spoke w/attending Dr. Nelida schmidt recommended adding plavix. Statin was added. MRA was positive for Focal severe stenosis involving the proximal right internal carotid artery. Focal moderate to high-grade stenosis involving the proximal left internal carotid artery. Focal moderate or high- grade stenosis at the origin of the dominant left vertebral artery. The patient was seen by vascular surgery and underwent left carotid endarterectomy on 02/25/2017. He tolerated the procedure well. He was monitored in the ICU after the procedure and was downgraded to telemetry on 11/2017. Later on, Plavix was discontinued, per evaluation of cardiology and vascular, as patient had MAZE/left atrial appendage ligation with no recurrent A. fib. For the same reason, they did not recommend anticoagulation. He should follow up with vascular surgeon within 1 week of discharge. #Shortness of breath: Chest x-ray shows hazy bibasilar opacities, and low lung volumes without definite acute pulmonary disease. Flu swab was negative. Patient does have a history of COPD. He is a former smoker with a 2 pack per day habit but quit 30 years ago. On physical exam he was diffusely wheezy with diminished air movement. He got 1 dose of azithromycin ceftriaxone for treatment of pneumonia in ED. He was started on Solu-Medrol which was later on changed to by mouth prednisone taper. And azithromycin for anti-inflammatory effect he completed a five-day course of azithromycin therapy. #Nonspecific EKG changes Troponin negative. Cardiology consulted. Per cardiology, he had a recent outpatient echocardiogram showed normal ejection fraction a repeat echo cardiac is not required at this time. #Paroxysmal atrial fibrillation status post MAZE/left atrial appendage ligation with no recurrent A. fib on subsequent implantable loop recorder (subsequently explanted): The patient was followed by cardiology. #Hypertension: Patient had blood pressure 150/68 and subsequently 171/77. He was noted to be bradycardic with heart rate down to 50. We continued amlodipine 10 mg and carvedilol 6.25, with hold parameters for heart rate. He was started on losartan on admission. #History of diabetes: Diet-controlled at home, she required a few doses of NovoLog while on steroids inpatient. Blood glucose levels were monitored closely and remained stable. #BPH: We continued home medications. #Code Status: Patient is DNR and DNI. Allergies: Coded Allergies: shellfish derived (Severe, UNKNOWN 02/20/17) acetaminophen (From PERCOCET) (UNKNOWN 02/20/17) oxycodone (From PERCOCET) (UNKNOWN 02/20/17) Significant Procedures: Left carotid endarterectomy 02/25/17 Pertinent Lab Results: Laboratory Tests 02/27/17 0635: Anion Gap 11, Estimated GFR > 60, Glucose 135 H, Calcium 8.7, Phosphorus 3.0, Magnesium 2.1, Total Bilirubin 0.7, AST 18, ALT 43, Albumin 3.1 L, CBC w Diff NO MAN DIFF REQ, RBC 4.56 L, MCV 86.2, MCH 29.5, RDW 14.3, MPV 8.3, Gran % 80.2 H, Lymphocytes % 10.5 L, Monocytes % 7.8, Eosinophils % 1.3, Basophils % 0.2, Absolute Granulocytes 9.1 H, Absolute Lymphocytes 1.2, Absolute Monocytes 0.9 H, Absolute Eosinophils 0.1, Absolute Basophils 0, PUBS MCHC 34.2 02/26/17 0430: Anion Gap 13, Estimated GFR > 60, Glucose 223 H, Calcium 8.9, Phosphorus 4.1, Magnesium 2.1, Total Bilirubin 0.8, AST 26, ALT 45, Albumin 3.2 L, CBC w Diff NO MAN DIFF REQ, RBC 4.95, MCV 86.5, MCH 29.3, RDW 14.4, MPV 8.2, Gran % 84.7 H , Lymphocytes % 7.0 L, Monocytes % 7.8, Eosinophils % 0.4, Basophils % 0.1, Absolute Granulocytes 9.7 H, Absolute Lymphocytes 0.8 L, Absolute Monocytes 0.9 H, Absolute Eosinophils 0, Absolute Basophils 0, PUBS MCHC 33.9 Disposition Summary Disposition Principal Diagnosis: Fall and gait instability Carotid artery disease status post left carotid endarterectomy Additional Diagnosis: Prior CVA now with worsening of right-sided weakness Discharge Disposition: SNF Discharge Instructions General Discharge Information Code Status: Do Not Resucitate/Intubat Patient's Diet: Diabetic, Heart Healthy Patient's Activity: As tolerated, work with physical therapy Follow-Up Instructions/Appts: Please follow-up with your PCP within a week of discharge. Please follow-up with vascular surgeon, Dr. Dean within a week of discharge. Please follow-up with feed preparation operator Dr. Manning within a week of discharge. Please follow-up with neurologist, Dr. Mtz within a week of discharge. Please return to the hospital if your symptoms not improve/worsen. Medications at Discharge Discharge Medications: Continue taking these medications: Amlodipine Besylate (Amlodipine Besylate) 10 MG TABLET 1 Tablet ORAL DAILY Comments: Last Taken:02/27/17 Time: 9AM Tamsulosin HCl (Flomax) 0.4 MG CAP.ER.24H 1 Capsule ORAL DAILY Comments: Last Taken:02/27/17 Time: 9AM Finasteride (Proscar) 5 MG TABLET 1 Tablet ORAL DAILY Comments: Last Taken:02/27/17 Time: 9AM Aspirin (Aspirin*) 81 MG TAB.CHEW 1 Tablet ORAL DAILY Qty = 30 Comments: Last Taken:02/27/17 Time: 9AM Docusate Sodium (Stool Softener) 100 MG CAPSULE 1 Capsule ORAL DAILY as needed for CONSTIPATION Famotidine (Famotidine) 20 MG TABLET 1 Tablet ORAL TWICE DAILY as needed for GI Solifenacin Succinate (Vesicare) 5 MG TABLET 1 Tablet ORAL DAILY Comments: NOT TAKEN Carvedilol (Carvedilol) 6.25 MG TABLET 1 Tablet ORAL TWICE DAILY Qty = 180 Comments: Last Taken:02/27/17 Time:9AM Umeclidinium Brm/Vilanterol Tr (Anoro Ellipta 62.5-25 Mcg INH) 62.5 MCG-25 MCG/ ACTUATION BLST.W.DEV 1 PUFF Inhale through mouth DAILY Comments: NOT TAKEN Start taking the following new medications: Atorvastatin Calcium (Atorvastatin Calcium) 80 MG TABLET 1 Tablet ORAL 5 PM Qty = 30 No Refills Comments: Last Taken:02/26/17 Time:5PM Losartan (Cozaar) 100 MG TABLET 1 Tablet ORAL DAILY Qty = 30 No Refills Prednisone (Prednisone) 10 MG TABLET 1 Tablet ORAL SEE INSTRUCTIONS Qty = 17 No Refills Instructions: 3 Tabs on 02/28/17, 03/01/17 2 Tabs on 03/02/17, 03/03/17, 03/04/17 1 Tab on 03/05/17, 03/06/17, 03/07/17 0.5 Tab on 03/08/17, 03/09/17, 03/10/17 Then stop Comments: Last Taken:02/27/17 Time:9AM Copies To: Issac ALVAREZ,Gabriella
--- NOTE | 2017-02-27 13:38 | Patient Discharge Instructions ---
Discharge Instructions General Discharge Information You were seen/treated for: -Fall and gait instability -Carotid artery disease status post left carotid endarterectomy -Prior CVA now with worsening of right-sided weakness Special Instructions: Please follow-up with your PCP within a week of discharge. Please follow-up with vascular surgeon, Dr. Dean within a week of discharge. Please follow-up with lepidopterist Dr. Manning within a week of discharge. Please follow-up with neurologist, Dr. Mtz within a week of discharge. Please return to the hospital if your symptoms not improve/worsen. Diet Recommended Diet: Diabetic, Heart Healthy Activity Additional ACTIVITY Info: As tolerated, work with physical therapy Acute Coronary Syndrome Inclusion Criteria At DC or during hospital stay patient has or had the following: ACS DIAGNOSIS No Discharge Core Measures Meds if any: Prescribed or Continued at Discharge Meds if any: NOT Prescribed or Continued at Discharge Congestive Heart Failure Inclusion Criteria At DC or during hospital stay patient has or had the following: CHF DIAGNOSIS No Discharge Core Measures Meds if any: Prescribed or Continued at Discharge Meds if any: NOT Prescribed or Continued at Discharge Cerebrovascular accident Inclusion Criteria At DC or during hospital stay patient has or had the following: CVA/TIA Diagnosis No Discharge Core Measures Meds if any: Prescribed or Continued at Discharge Meds if any: NOT Prescribed or Continued at Discharge Venous thromboembolism Inclusion Criteria VTE Diagnosis No VTE Type NONE VTE Confirmed by (Test) NONE Discharge Core Measures - Per Current guidelines, there needs to be overlap - treatment for the first 5 days of Warfarin therapy. - If discharged on Warfarin prior to 5 days of - overlap therapy, the patient will need to be - assessed for post discharge needs including - *Post discharge parental anticoagulation - *Warfarin and/or parental anticoagulation education - *Follow up date to check INR post discharge At least 5 days overlap therapy as Inpatient No Meds if any: Prescribed or Continued at Discharge Note: Overlap Therapy is Warfarin and Anticoagulant Meds if any: NOT Prescribed or Continued at Discharge
[2017-02-27] MEDS ORDERED: PREDNISONE10 M2 PO (13:56)
[2017-02-27] MEDS ORDERED: ATORVASTATIN CA80 M1 PO (13:57)
[2017-02-27] MEDS ORDERED: COZAAR100 M1 PO (15:04)
[2017-02-27 15:12] VITALS: BP 138/72
== END 2017-02-27 16:15 | DRG 38 ==
LOC: ERH 06:52 → ERHI 09:11 → 1NO 09:11 → ENRESERV 10:38 → ENTRNSPT 11:28 → EDTRNSPT 11:33 → EDTRNSPTSTS 11:33 → 1NO 11:42 → CMPTRNSPT 11:58 → 1NO 12:50 → CRI 02-25 11:14 → ENTRNSPT 02-25 13:04 → EDTRNSPT 02-25 13:16 → EDTRNSPTSTS 02-25 13:16 → CMPTRNSPT 02-25 13:42 → 1NO 02-26 18:55
PROVIDERS: Emergency Medicine; Hospitalist; Internal Medicine; Internal Medicine Adolescent Medicine; Student in an Organized Health Care Education/Training Program
PROC: 03UL0KZ Supplement Left Internal Carotid Artery with Nonautologous Tissue Substitute, Open Approach (ICD-10-PCS; principal; 2017-02-25)
PROC: 03CL0ZZ Extirpation of Matter from Left Internal Carotid Artery, Open Approach (ICD-10-PCS; principal; 2017-02-25)
DX: I63.132 Cerebral infarction due to embolism of left carotid artery (principal); I69.351 Hemiplegia and hemiparesis following cerebral infarction affecting right dominant side; C22.1 Intrahepatic bile duct carcinoma; I48.0 Paroxysmal atrial fibrillation; J44.1 Chronic obstructive pulmonary disease with (acute) exacerbation; R00.1 Bradycardia, unspecified; E11.9 Type 2 diabetes mellitus without complications; I25.5 Ischemic cardiomyopathy; I25.10 Atherosclerotic heart disease of native coronary artery without angina pectoris; I10 Essential (primary) hypertension; R26.89 Other abnormalities of gait and mobility; N40.0 Benign prostatic hyperplasia without lower urinary tract symptoms; Z66 Do not resuscitate; E78.5 Hyperlipidemia, unspecified; Z87.891 Personal history of nicotine dependence; Z95.1 Presence of aortocoronary bypass graft
CPT/HCPCS: 1NP; 1NSP; 70552; 70555; 70564; CCU; 36415; 70553; 71045; 81001; 82436; 87804; 87804-59; 93005; 93010; 96365; 97110-GO; 97112-GO; 97116-GO; 97161-GP; 97164-GP; 97530-GO; 99291; A9579; C9399; J0131; J0456; J0690; J0696; J1644; J1650; J1815; J2920; J3490; J7040; J7042; J7512

== ENCOUNTER 2017-05-29 14:46 | Inpatient (IN) | payer OTHER, MEDICARE ==
[~2017-05-29] VITALS: Ht 172.7 cm; Wt 97.3 kg
[~2017-05-29 14:46] MED LIST changes: +ANORO ELLIPTA1 EACH INH; +ATORVASTATIN CA80 M1 PO; +CARVEDILOL6.25 M1 PO; +FAMOTIDINE20 M1 PO; +PREDNISONE10 M2 PO; +STOOL SOFTENER100 M3 PO; +VESICARE5 M1 PO
--- NOTE | 2017-05-29 14:52 | ED MVC/FALL/TRAUMA COMPLAINT ---
History of Present Illness General Chief Complaint: Fall Stated Complaint: R LEG/HIP PAIN Source: patient, EMS Exam Limitations: no limitations Vital Signs & Intake/Output Vital Signs & Intake/Output Vital Signs Date Time Temp Pulse Resp B/P B/P Pulse O2 O2 Flow FiO2 Mean Ox Delivery Rate 05/29 1621 Room Air 05/29 1514 96.8 63 20 165/82 93 Room Air Allergies Coded Allergies: shellfish derived (Severe, UNKNOWN 02/20/17) acetaminophen (From PERCOCET) (UNKNOWN 02/20/17) oxycodone (From PERCOCET) (UNKNOWN 02/20/17) Reconcile Medications Amlodipine Besylate 10 MG TABLET 1 TAB PO DAILY blood pressure (Reported) Aspirin (Aspirin*) 81 MG TAB.CHEW 1 TAB PO DAILY HEART HEALTH (Reported) Atorvastatin Calcium 80 MG TABLET 1 TAB PO 1700 Cholesterol Carvedilol 6.25 MG TABLET 1 TAB PO BID HEART (Reported) Docusate Sodium (Stool Softener) 100 MG CAPSULE 1 CAP PO DAILY PRN CONSTIPATION (Reported) Famotidine 20 MG TABLET 1 TAB PO BID PRN GI (Reported) Finasteride (Proscar) 5 MG TABLET 1 TAB PO DAILY prostate (Reported) Losartan (Cozaar) 100 MG TABLET 1 TAB PO DAILY Blood pressure Solifenacin Succinate (Vesicare) 5 MG TABLET 1 TAB PO DAILY BLADDER (Reported ) Tamsulosin HCl (Flomax) 0.4 MG CAP.ER.24H 1 CAP PO DAILY prostate (Reported) Umeclidinium Brm/Vilanterol Tr (Anoro Ellipta 62.5-25 Mcg INH) 62.5 MCG-25 MCG/ ACTUATION BLST.W.DEV 1 PUFF INH DAILY BREATHING PROBLEMS (Reported) Triage Note: PT BIBA S/P FALL, PT WAS STANDING UP FROM A STOOL AND WENT TO REACH SOMETHING AND FELL. PT STATES THAT PAIN IS GETTING WORSE. PT STATES ITS RIGHT HIP AND LEG PAIN 6/10. Triage Nurses Notes Reviewed? yes Onset: Just prior to arrival Duration: hour(s): (1) Timing: no prior history Severity: moderate Severity Numbers: 7 Injuries/Fall Location: lower extremity Method of Injury: fall Loss of Consciousness: no loss of consciousness Modifying Factors: Improves With: rest. Worsens With: movement, palpation. HPI: Patient is a 76-year-old male with history of atrial fibrillation, hypertension, diabetes, recent CVA 4 months ago presenting to the emergency Department chief complaint mechanical fall prior to arrival. Patient reports that he was getting up from a stool in the stool got caught between his feet while he was reaching for his walker and he fell forward. He landed directly on his right hip. No headshake. Denies neck pain or back pain. Denies chest pain palpitations or shortness of breath. Denies lightheadedness or dizziness. Denies abdominal pain. Denies any upper extremity pain. He reports that he got abrasion to his right elbow but has no pain with moving the joint. Denies any dizziness. Denies any urinary incontinence or retention. Denies LOC or head strike. (Nyla Meyer) Past History Travel History Traveled to [place] past 21 day No Medical History Any Pertinent Medical History? 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 FH: diabetes mellitus Hx Contributory? No (Nyla Meyer) Review of Systems Review of Systems Constitutional: Reports: no symptoms. Comments Review of systems: See HPI, All other systems negative. Constitutional, no chills fever or weight loss HEENT: No visual changes no sore throat no congestion Cardiovascular: No chest pain ,palpitation , orthopnea or ankle swelling Skin, no jaundice no rashes Respiratory: No dyspnea cough sputum or hemoptysis GI: No nausea no vomiting : No dysuria No hematuria Muscle skeletal: no back pain, no neck pain, Neurologic: No numbness no confusion, NO headaches Psych: No stress anxiety Immunology: No splenectomy or history of AIDS (Nyla Meyer) Physical Exam Physical Exam General Appearance: well developed/nourished, no apparent distress, alert, awake , comfortable Comments: Well-developed well-nourished person in no acute distress HEENT: Atraumatic, normocephalic. Pupils are round reactive to light and accommodation. Moist oral mucosa. Neck: Normal inspection, no C-spine tenderness. Back: Unable to fully assess secondary to pain in the right hip, unable to sit up patient. Cardiovascular: Regular rate and rhythms no murmurs rubs or gallops, normal JVP Respiratory: Chest nontender. No respiratory distress.breath sounds clear to auscultation bilaterally Abdomen: Soft, nontender nondistended, no appreciable organomegaly. Normal bowel sounds. No ascites but no rebound or guarding. Extremity: No edema, no calf tenderness to palpation, normal and equal pulses. Right lower extremity is flexed at the hip and knee and slightly internally rotated and slightly shortened compared to left lower extremities. Pain to palpation over the greater trochanter of the right hip. Nontender to palpation over the left lower extremity. Full range of motion of bilateral feet, ankles and toes. Pedal pulses are 2+ bilaterally. Range of motion of upper extremities without difficulty or pain. Neuro: Alert oriented x3, motor sensory normal Skin: No appreciable rash on exposed skin, skin is warm and dry. Psych: Mood and affect is normal, memory and judgment is normal. Core Measures ACS in differential dx? No CVA/TIA Diagnosis No Sepsis Present: No Sepsis Focused Exam Completed? No (Julieta GOOD,Nyla) Progress Differential Diagnosis: HIP FRACTURE, PELVIS FRACTURE, CONTUSION, MUSCLE STRAIN Plan of Care: Orders Procedure Date/time Status Heart Healthy Diet 05/30 B Active Patient Data 05/29 1807 Active ED Holding Orders 05/29 1737 Active Admit to inpatient 05/29 1737 Active Vital Signs 05/29 1737 Active Code Status 05/29 1737 Active Addison, Insertion/Removal/Asses 05/29 1547 Active CULTURE,URINE 05/29 1547 Active PARTIAL THROMBOPLASTIN TIME 05/29 1547 Complete PROTHROMBIN TIME 05/29 1547 Complete COMPREHENSIVE METABOLIC PANEL 05/29 1547 Complete CBC WITHOUT DIFFERENTIAL 05/29 1547 Complete EKG 05/29 1547 Active TYPE & SCREEN (NOT X-MATCH) 05/29 1547 Complete Laboratory Tests 05/29/17 1540: Anion Gap 15, Estimated GFR > 60, BUN/Creatinine Ratio 16.0, Glucose 241 H, Calcium 9.7, Total Bilirubin 0.9, AST 17, ALT 24, Alkaline Phosphatase 94, Total Protein 8.1, Albumin 4.5, Globulin 3.6, Albumin/Globulin Ratio 1.3, PT 11.6, INR 1.06, APTT 27, CBC w Diff NO MAN DIFF REQ, RBC 5.12, MCV 87.3, MCH 29.7, MCHC 34.1, RDW 14.0, MPV 8.8, Gran % 83.0 H, Lymphocytes % 8.8 L, Monocytes % 6.4, Eosinophils % 1.8, Basophils % 0, Absolute Granulocytes 8.8 H, Absolute Lymphocytes 0.9 L, Absolute Monocytes 0.7 H, Absolute Eosinophils 0.2, Absolute Basophils 0 Microbiology 05/29 1547 URINE ROUT: Urine Culture - ORD 05/29/2017 5:25:52 PM patient informed of lab work results and imaging study results. Spoke with Dr. Rodriguez, on-call orthopedic. Patient will be admitted to medicine, he'll need medical clearance and cardiac Clearance prior to surgical procedure. The surgical physician senior care assistant will come and see the patient. Diagnostic Imaging: Viewed by Me: Radiology Read. Discussed w/RAD: Radiology Read. Radiology Impression: PATIENT: SANTO STODDARD PRESENT AGE: 76 PATIENT ACCOUNT NO: [id number] : 42 LOCATION: [facility] ORDERING PHYSICIAN: Nyla GOOD SERVICE DATE: 05/29/17 EXAM TYPE: RAD - XRY-HIP 2-3 VIEWS, RIGHT EXAMINATION: XR HIP, RIGHT CLINICAL INFORMATION: Fall. Pain. COMPARISON: None TECHNIQUE: Single view of pelvis. Two views of the right hip. FINDINGS: There is a comminuted mildly displaced intratrochanteric fracture of the right hip. The femoral head remains seated at the acetabulum. The left hip is intact. There is no fracture of pelvis. There is mild degenerative spondylosis of lower lumbar spine. There is degenerative subchondral sclerosis of the inferior sacroiliac joints bilateral. IMPRESSION: Comminuted mildly displaced intratrochanteric fracture of the right hip. DICTATED BY: Sandeep Whittington MD DATE/TIME DICTATED:05/29/171604 APPLICATION SPECIALIST :WYATT DATE/TIME TRANSCRIBED:05/29/171604 CONFIDENTIAL, DO NOT COPY WITHOUT APPROPRIATE AUTHORIZATION. <Electronically signed in Other Vendor System> SIGNED BY: Sandeep Whittington MD 05/29/17 1610 CXR Impression: ATIENT: SANTO STODDARD PRESENT AGE: 76 PATIENT ACCOUNT NO: [id number] : 42 LOCATION: [facility] ORDERING PHYSICIAN: Nyla GOOD SERVICE DATE: 05/29/17720 EXAM TYPE: RAD - XRY-CHEST XRAY, SINGLE VIEW EXAMINATION:\H\ \N\XR CHEST CLINICAL INFORMATION: Preop. Hip fracture. COMPARISON: Chest x-ray 02/20/2017 TECHNIQUE: Frontal portable view of the chest was obtained. 3:37 PM FINDINGS: Status post median sternotomy. The cardiac and mediastinal contours are normal. There is no acute abnormality. There is no pulmonary vascular congestion. There is no infiltrate or pleural effusion. There is no pneumothorax. IMPRESSION: No acute abnormality of the chest. DICTATED BY: Sandeep Whittington MD DATE/TIME DICTATED:05/29/171606 APPLICATION SPECIALIST:WYATT DATE/TIME TRANSCRIBED:05/29/171606 CONFIDENTIAL, DO NOT COPY WITHOUT APPROPRIATE AUTHORIZATION. <Electronically signed in Other Vendor System> SIGNED BY: Sandeep Whittington MD 05/29/17 1612 Initial ED EKG: sinus rhythm at 58 beats per min , no acute changes noted. Prior EKG: unchanged (Nyla Meyer) Departure Departure Time of Disposition: 1714 Disposition: HOME OR SELF CARE Condition: Stable Clinical Impression Primary Impression: Intertrochanteric fracture of right hip Qualifiers: Encounter type: initial encounter Fracture type: closed Fracture alignment: displaced Qualified Code: S72.141A - Displaced intertrochanteric fracture of right femur, initial encounter for closed fracture Referrals: Gabriella Davenport MD (PCP/Family) Departure Forms: Customer Survey General Discharge Information Admission Note Spoke With: Martha Gould MD Documentation of Exam: Documentation of any treatments & extenuating circumstances including Concerns Regarding Discharge (functional status, medication knowledge or non-compliance, living conditions, etc.) that warrant an admission rather than observation: Patient requiring medical clearance for hip fracture, likely hip replacement, physical therapy consultation, IV pain management, cardiology clearance, discharge at this time is medically harmful. (Nyla Meyer) PA/AVIAN KEEPER Co-Sign Statement Statement: ED Attending supervision documentation- [X] I saw and evaluated the patient. I have also reviewed all the pertinent lab results and diagnostic results. I agree with the findings and the plan of care as documented in the PA's/AVIAN KEEPER's documentation. [] I have reviewed the ED Record and agree with the PA's/AVIAN KEEPER's documentation. [] Additions or exceptions (if any) to the PAs/AVIAN KEEPER's note and plan are summarized below: [] (Warren Montero DO)
--- NOTE | 2017-05-29 16:10 | RADIOLOGY REPORT ---
EXAMINATION: XR HIP, RIGHT CLINICAL INFORMATION: Fall. Pain. COMPARISON: None TECHNIQUE: Single view of pelvis. Two views of the right hip. FINDINGS: There is a comminuted mildly displaced intratrochanteric fracture of the right hip. The femoral head remains seated at the acetabulum. The left hip is intact. There is no fracture of pelvis. There is mild degenerative spondylosis of lower lumbar spine. There is degenerative subchondral sclerosis of the inferior sacroiliac joints bilateral. IMPRESSION: Comminuted mildly displaced intratrochanteric fracture of the right hip.
--- NOTE | 2017-05-29 16:12 | RADIOLOGY REPORT ---
EXAMINATION:\H\ \N\XR CHEST CLINICAL INFORMATION: Preop. Hip fracture. COMPARISON: Chest x-ray 02/20/2017 TECHNIQUE: Frontal portable view of the chest was obtained. 3:37 PM FINDINGS: Status post median sternotomy. The cardiac and mediastinal contours are normal. There is no acute abnormality. There is no pulmonary vascular congestion. There is no infiltrate or pleural effusion. There is no pneumothorax. IMPRESSION: No acute abnormality of the chest.
[2017-05-29 16:20] LABS: PT 11.6 SEC (9.4-12.5); PTT 27 SEC (25-37)
[2017-05-29 16:21] LABS: ABSOLUTE BASOPHIL COUNT 0 /CUMM (0.0-0.2); ABSOLUTE EOSINOPHIL COUNT 0.2 /CUMM (0.0-0.7); ABSOLUTE GRANULOCYTE CT 8.8 /CUMM (1.4-6.5); ABSOLUTE LYMPH COUNT 0.9 /CUMM (1.2-3.4); ABSOLUTE MONOCYTE COUNT 0.7 /CUMM (0.10-0.60); BASOPHIL % 0 % (0.0-2.0); EOSINOPHIL % 1.8 % (0-5); HEMATOCRIT 44.7 % (42-52); MEAN CORPUSCULAR HGB 29.7 PG (27.0-31.0); MEAN CORPUSCULAR HGB CONC 34.1 G/DL (33.0-37.0); MEAN CORPUSCULAR VOLUME 87.3 FL (80.0-94.0); MEAN PLATELET VOLUME 8.8 FL (7.4-10.4); PLATELET COUNT 247 /CUMM (130-400); RED BLOOD CELL CT 5.12 /CUMM (4.70-6.10); WHITE BLOOD CELL COUNT 10.6 /CUMM (4.8-10.8)
--- NOTE | 2017-05-29 17:39 | History & Physical ---
Alok ALVAREZ,[facility] 05/29/17 1738: General Information and HPI MD Statement: I have seen and personally examined SANTO STODDARD and documented this H&P. The patient is a 76 year old M who presented with a patient stated chief complaint of [Fall]. Source of Information: patient Exam Limitations: no limitations History of Present Illness: The patient is 76-year-old gentleman with past medical history of atrial fibrillation, coronary artery disease status post CABG (triple bypass) 3 years ago, hypertension, cholangiocarcinoma with previous biliary stent, bilateral carotid stenosis status post left CEA early 2017, COPD and recent CVA 4 months ago. The patient presented to [facility] ED on 05/29 with complaint of mechanical fall. The patient was in usual state of health until today. He was sitting on a stool with wheels. Patient reports that he was getting up from a stool and the stool came between his legs while he was reaching for his walker. He fell forward and landed on his right hip. The patient denies any loss of consciousness. He denies any trauma to the head. He denies any chest pain, palpitations, dizziness or any other prodromal symptoms. He denies any seizure-like activity. He denies any urinary or fecal incontinence. There was no tongue bite. The fall was purely mechanical. The patient denies any fevers or chills. Review of system is otherwise negative he reports an abrasion to his right elbow is without any pain at present. Of note patient recently underwent left CEA (after CVA 4 months ago) with and he is scheduled to undergo right CEA by the end of this month. He was seen by Benito Manning MD and cleared for that surgery. Patient lives with his at home. Uses walker after CVA. Allergies/Medications Allergies: Coded Allergies: shellfish derived (Severe, UNKNOWN 02/20/17) acetaminophen (From PERCOCET) (UNKNOWN 02/20/17) oxycodone (From PERCOCET) (UNKNOWN 02/20/17) Home Med list Amlodipine Besylate 10 MG TABLET 1 TAB PO DAILY blood pressure (Reported) Aspirin (Aspirin*) 81 MG TAB.CHEW 1 TAB PO DAILY HEART HEALTH (Reported) Atorvastatin Calcium 80 MG TABLET 1 TAB PO 1700 Cholesterol Carvedilol 6.25 MG TABLET 1 TAB PO BID HEART (Reported) Docusate Sodium (Stool Softener) 100 MG CAPSULE 1 CAP PO DAILY PRN CONSTIPATION (Reported) Famotidine 20 MG TABLET 1 TAB PO BID PRN GI (Reported) Finasteride (Proscar) 5 MG TABLET 1 TAB PO DAILY prostate (Reported) Losartan (Cozaar) 100 MG TABLET 1 TAB PO DAILY Blood pressure Solifenacin Succinate (Vesicare) 5 MG TABLET 1 TAB PO DAILY BLADDER (Reported ) Tamsulosin HCl (Flomax) 0.4 MG CAP.ER.24H 1 CAP PO DAILY prostate (Reported) Umeclidinium Brm/Vilanterol Tr (Anoro Ellipta 62.5-25 Mcg INH) 62.5 MCG-25 MCG/ ACTUATION BLST.W.DEV 1 PUFF INH DAILY BREATHING PROBLEMS (Reported) Past History Travel History Traveled to [place] past 21 day No Medical History Neurological: CVA EENT: NONE Cardiovascular: AFIB, hypertension, TRIPLE BYPASS SURGERY bilateral carotid stenosis Respiratory: COPD, emphysema Gastrointestinal: NONE Renal: NONE Musculoskeletal: NONE Psychiatric: NONE Endocrine: diabetes Blood Disorders: NONE 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 FH: diabetes mellitus Psychosocial History Where do you live? Home Who Do You Live With? spouse Services at Home: None Primary Language: Czech Smoking Status: Former Smoker ETOH Use: denies use Illicit Drug Use: denies illicit drug use Living Will? Patient and son unsure, pt expressed Full code status Power of Dressage Instructor/HCP? yes Functional Ability ADLs Unknown: dressing, eating, toileting, bathing. Ambulation: walker IADLs Unknown: shopping, housework, finances, food prep, telephone, transportation, medication admin. Review of Systems Review of Systems Constitutional: Reports: see HPI. Cardiovascular: Denies: see HPI, orthopena. GI: Denies: abdominal pain, bowel incontinence. Genitourinary: Reports: no symptoms. Exam & Diagnostic Data Last 24 Hrs of Vital Signs/I&O Vital Signs Date Time Temp Pulse Resp B/P B/P Pulse O2 O2 Flow FiO2 Mean Ox Delivery Rate 05/29 1621 Room Air 05/29 1514 96.8 63 20 165/82 93 Room Air Intake & Output 05/29 1600 05/29 0800 05/29 0000 Intake Total Output Total Balance Patient 192 lb Weight Weight Reported by Patient Measurement Method Physical Exam General Appearance Alert, Oriented X3, Cooperative Skin No Rashes, No Breakdown HEENT Atraumatic Cardiovascular Normal S1, Normal S2 Lungs Clear to Auscultation, Normal Air Movement Abdomen Soft, No Tenderness, No Hepatospenomegaly Neurological Normal Speech, Strength at 5/5 X4 Ext Extremities No Cyanosis, No Edema, No hematoma at site of fracture Body Front and Back (Adult) 1) intratrochanteric fracture of the right hip. Last 24 Hrs of Labs/Christiano: Laboratory Tests 05/29/17 1540: Anion Gap 15, Estimated GFR > 60, BUN/Creatinine Ratio 16.0, Glucose 241 H, Calcium 9.7, Total Bilirubin 0.9, AST 17, ALT 24, Alkaline Phosphatase 94, Total Protein 8.1, Albumin 4.5, Globulin 3.6, Albumin/Globulin Ratio 1.3, PT 11.6, INR 1.06, APTT 27, CBC w Diff NO MAN DIFF REQ, RBC 5.12, MCV 87.3, MCH 29.7, MCHC 34.1, RDW 14.0, MPV 8.8, Gran % 83.0 H, Lymphocytes % 8.8 L, Monocytes % 6.4, Eosinophils % 1.8, Basophils % 0, Absolute Granulocytes 8.8 H, Absolute Lymphocytes 0.9 L, Absolute Monocytes 0.7 H, Absolute Eosinophils 0.2, Absolute Basophils 0 Microbiology 05/29 1547 URINE ROUT: Urine Culture - ORD Diagnostic Data CXR Results IMPRESSION: No acute abnormality of the chest. Other Results XRY-HIP 2-3 VIEWS, RIGHT Comminuted mildly displaced intratrochanteric fracture of the right hip. Assessment/Plan Assessment: The patient is 76-year-old gentleman with past medical history of paroxysmal atrial fibrillation status post ablation, coronary artery disease status post CABG (triple bypass) 3 years ago, hypertension, bilateral carotid stenosis status post left CEA early 2017, COPD and recent CVA 4 months ago. The patient presented to [facility] ED on 05/29 with complaint of mechanical fall. Vitals on admission WNL Presenting labs WNL Imaging findings dictated above The patient is going to be admitted to general medicine floor and is being treated and evaluated for following conditions #Unwitnessed Mechanical fall The patient suffered a mechanical fall. No loss of consciousness no headache, no dizziness, shortness of breath, chest pain or palpitations. No urinary or fecal incontinence or tongue biting or seizure-like activity. -Admit to general medicine floor -Monitor vitals -Adequate analgesia -Ortho consult -Patient will require surgical fixation of fracture -Patient will be made nothing by mouth at midnight for anticipated procedure in the morning -Foleys catheter in place -Asprin on hold for tomorrow -PT evaluation #Cardiac clearance Patient recently underwent left CEA (after CVA 4 months ago) with and he is scheduled to undergo right CEA by the end of this month. He was seen by Benito Manning MD and cleared for that surgery. -METs score 4 -RCRI is 3. He falls in class IV risk. With 11% risk of major cardiac event -Cardio consult placed for morning #History of atrial fibrillation Paroxysmal atrial fibrillation status post MAZE/left atrial appendage ligation -Continue carvedilol -Patient is not on any anticoagulation #Chronic medical conditions hypertension, hyperlipidemia, GERD, BPH continue home medications amlodipine,Cozaar, statin, and famotidine, finasteride , Vesicare, Flomax Nothing by mouth for anticipated procedure/DVT prophylaxis with Alps only in anticipation of surgery/FC As Ranked By This Provider Problem List: 1. Intertrochanteric fracture of right hip Qualifiers Encounter type: initial encounter Fracture type: closed Fracture alignment: displaced Qualified Code: S72.141A - Displaced intertrochanteric fracture of right femur, initial encounter for closed fracture Core Measures/Misc (11/04) Acute Coronary Syndrome ACS Diagnosis: No Congestive Heart Failure Congestive Heart Failure Diagnosis No Cerebrovascular Accident CVA/TIA Diagnosis: No VTE (View Protocol) VTE Risk Factors Age>40 No Mechanical VTE Prophylaxis d/t N/A MechProphylax Ordered No VTE Pharm Prophylaxis d/t Other (anticipated procedure) Sepsis (View protocol) Sepsis Present: No Martha Gould MD 05/29/172054: Attending MD Review Statement Attending Statement Attending MD Statement: examined this patient, discuss w/resident/PA/SECURITY ASSISTANT, agreed w/resident/PA/SECURITY ASSISTANT, reviewed EMR data (avail) Attending Assessment/Plan: 76M PMH CAD s/p CABG 2014, T2DM, chronic atrial fibrillation s/p MAZE procedure, ischemic cardiomyopathy, COPD, cholangiocarcinoma, recent stroke with residual right sided weakness with bilateral carotid disease s/p left CEA in February 2017 , presents with mechanical fall at home, tripped on a stool, no LOC or head strike, no symptoms prior or after fall, found to have right mildly displaced comminuted intertrochanteric fracture of the hip. No symptoms other than hip pain, labs unremakrable. Plan - Admit to general medicine - Cardiology and orthopedic consult - Pain control - Continue home medications - Given cardiac history patient would be at elevated risk of surgery, however, tolerated vascular surgery well 3 months ago - DVT PPx Jose De Jesus ALVAREZ,[place] 05/29/173: Resident Review Statement Resident Statement: examined this patient, discussed with corporate legal intern, agreed with corporate legal intern Other Findings: 76-year-old very pleasant gentleman with a past medical history significant for CAD status post triple bypass 3 years ago, paroxysmal A. fib status post maze procedure, COPD, recent CVA about 4 months ago followed up with Left CEA in 2017 , presents to the ED for evaluation of a mechanical fall after tripping over a cord while standing on a stool. No reports of seizure-like activity, denied syncope, or any new focal neurological deficit such as dysarthria, facial droop, confusion or weakness. Radiological studies done in the ED on presentation, was remarkable for comminuted mildly displaced intratrochanteric right hip fracture. Of note, patient reported 2 orthopedic team and medical admitting team that he had recently received preop clearance from his car lot attendant Benito Manning MD for a scheduled CEAin about 1-2 weeks. Impression * Mechanical fall. * Mildly displaced intratrochanteric fracture * Need for preop clearance. * History of chronic diseases: CVA, CAD, COPD (not currently on exacerbation).. Plan Admit to general medicine floor Adequate pain management Hold aspirin Nothing by mouth at midnight Patient preop RCI index is of class III indicating of 11% cardiac mortality risk At baseline patient is able to climb more than 2-3 flights of stairs with no chest pain or shortness of breath, which is way above the minimum 4 MET. He also endorses cardiac clearance that was done recently. Nevertheless we'll consult cardiology for tomorrow morning to obtain formal cardiac clearance. Will continue beta radha given on day of surgery, will hold off losartan on day of surgery
--- NOTE | 2017-05-29 19:03 | Cons- Orthopedic ---
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 He is 3mo s/p CVA with residual RLE weakness, and now uses walker with stool to ambulate. His legs got "tangled" in the walker, and he fell. Denies LOC, head injury, other injuries. Fall was unwitnessed. No history of recent falls. Denies james/ cp/sob/palpitations/dizziness at time of fall. Denies other active issues. Of note, he underwent L CEA after CVA 3 mo ago with Dianne Birch, and is scheduled for R CEA at the end of this month. He saw his hog cutter Dr. Manning last week, and per pt, was cleared for CEA. Allergies/Medications Allergies: Coded Allergies: shellfish derived (Severe, UNKNOWN 02/20/17) acetaminophen (From PERCOCET) (UNKNOWN 02/20/17) oxycodone (From PERCOCET) (UNKNOWN 02/20/17) Home Med List: Amlodipine Besylate 10 MG TABLET 1 TAB PO DAILY blood pressure (Reported) Aspirin (Aspirin*) 81 MG TAB.CHEW 1 TAB PO DAILY HEART HEALTH (Reported) Atorvastatin Calcium 80 MG TABLET 1 TAB PO 1700 Cholesterol Carvedilol 6.25 MG TABLET 1 TAB PO BID HEART (Reported) Docusate Sodium (Stool Softener) 100 MG CAPSULE 1 CAP PO DAILY PRN CONSTIPATION (Reported) Famotidine 20 MG TABLET 1 TAB PO BID PRN GI (Reported) Finasteride (Proscar) 5 MG TABLET 1 TAB PO DAILY prostate (Reported) Losartan (Cozaar) 100 MG TABLET 1 TAB PO DAILY Blood pressure Solifenacin Succinate (Vesicare) 5 MG TABLET 1 TAB PO DAILY BLADDER (Reported ) Tamsulosin HCl (Flomax) 0.4 MG CAP.ER.24H 1 CAP PO DAILY prostate (Reported) Umeclidinium Brm/Vilanterol Tr (Anoro Ellipta 62.5-25 Mcg INH) 62.5 MCG-25 MCG/ ACTUATION BLST.W.DEV 1 PUFF INH DAILY BREATHING PROBLEMS (Reported) Past History Medical History Neurological: NONE (with rle weakness, 2018), CVA Cardiovascular: AFIB, CAD (sp CABG x3v age 73), hypertension, bilateral carotid stenosis, sp L CEA 2018 Respiratory: COPD Hepatic: ?biliary cancer, history unclear. 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 FH: diabetes mellitus Psychosocial History Services at Home: None Primary Language: Sami Power of Cash Manager/HCP? 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 gross sensate intact. gross plantar/ dorsiflexion intact bl. ttp at r hip, skin intact, no ecchymosis. calves soft nt bl Last 24 Hours of Labs: Laboratory Tests 05/29 1540 Chemistry Sodium (137 - 145 mmol/L) 141 Potassium (3.5 - 5.1 mmol/L) 4.4 Chloride (98 - 107 mmol/L) 102 Carbon Dioxide (22 - 30 mmol/L) 23 Anion Gap (5 - 16) 15 BUN (9 - 20 mg/dL) 16 Creatinine (0.7 - 1.2 mg/dL) 1.0 Estimated GFR (>60 ml/min) > 60 BUN/Creatinine Ratio (7 - 25 %) 16.0 Glucose (65 - 99 mg/dL) 241 H Calcium (8.4 - 10.2 mg/dL) 9.7 Total Bilirubin (0.2 - 1.3 mg/dL) 0.9 AST (17 - 59 U/L) 17 ALT (21 - 72 U/L) 24 Alkaline Phosphatase (< 127 U/L) 94 Total Protein (6.3 - 8.2 g/dL) 8.1 Albumin (3.5 - 5.0 g/dL) 4.5 Globulin (1.9 - 4.2 gm/dL) 3.6 Albumin/Globulin Ratio (1.1 - 2.2 %) 1.3 Coagulation PT (9.4 - 12.5 SEC) 11.6 INR (0.90 - 1.17) 1.06 APTT (25 - 37 SEC) 27 Hematology CBC w Diff NO MAN DIFF REQ WBC (4.8 - 10.8 /CUMM) 10.6 RBC (4.70 - 6.10 /CUMM) 5.12 Hgb (14.0 - 18.0 G/DL) 15.2 Hct (42 - 52 %) 44.7 MCV (80.0 - 94.0 FL) 87.3 MCH (27.0 - 31.0 PG) 29.7 MCHC (33.0 - 37.0 G/DL) 34.1 RDW (11.5 - 14.5 %) 14.0 Plt Count (130 - 400 /CUMM) 247 MPV (7.4 - 10.4 FL) 8.8 Gran % (42.2 - 75.2 %) 83.0 H Lymphocytes % (20.5 - 51.1 %) 8.8 L Monocytes % (1.7 - 9.3 %) 6.4 Eosinophils % (0 - 5 %) 1.8 Basophils % (0.0 - 2.0 %) 0 Absolute Granulocytes (1.4 - 6.5 /CUMM) 8.8 H Absolute Lymphocytes (1.2 - 3.4 /CUMM) 0.9 L Absolute Monocytes (0.10 - 0.60 /CUMM) 0.7 H Absolute Eosinophils (0.0 - 0.7 /CUMM) 0.2 Absolute Basophils (0.0 - 0.2 /CUMM) 0 Imaging Results: SERVICE DATE: 05/29/17 EXAM TYPE: RAD - XRY-HIP 2-3 VIEWS, RIGHT EXAMINATION: XR HIP, RIGHT CLINICAL INFORMATION: Fall. Pain. COMPARISON: None TECHNIQUE: Single view of pelvis. Two views of the right hip. FINDINGS: There is a comminuted mildly displaced intratrochanteric fracture of the right hip. The femoral head remains seated at the acetabulum. The left hip is intact. There is no fracture of pelvis. There is mild degenerative spondylosis of lower lumbar spine. There is degenerative subchondral sclerosis of the inferior sacroiliac joints bilateral. IMPRESSION: Comminuted mildly displaced intratrochanteric fracture of the right hip. Assessment/Plan Assessment/Plan A- 76yoM with R comminuted, mildly displaced intratrochanteric fracture, with multiple comorbidities including cva with rle weakness 3 months ago and cad sp [id number], with significant right hip pain, requiring surgical fixation of fracture once medically optimized P- medical admission, clearance pending or once medically optimized npo p mn hold aspirin FRANCY, kristian Rodriguez Consult Acknowledgment - Thank you for your consult request.
--- NOTE | 2017-05-29 20:32 | Cons- Orthopedic ---
General Information and HPI Consulting Request Date of Consult: 05/29/17 Requested By: Martha Gould MD Reason for Consult: Right Intertrochanteric hip fracture History of Present Illness: Patient had a mechanical fall at home suffered right hip fracture. No loss of consciousness.Unable to get up. Allergies/Medications Allergies: Coded Allergies: shellfish derived (Severe, UNKNOWN 02/20/17) acetaminophen (From PERCOCET) (UNKNOWN 02/20/17) oxycodone (From PERCOCET) (UNKNOWN 02/20/17) Home Med List: Amlodipine Besylate 10 MG TABLET 1 TAB PO DAILY blood pressure (Reported) Aspirin (Aspirin*) 81 MG TAB.CHEW 1 TAB PO DAILY HEART HEALTH (Reported) Atorvastatin Calcium 80 MG TABLET 1 TAB PO 1700 Cholesterol Carvedilol 6.25 MG TABLET 1 TAB PO BID HEART (Reported) Docusate Sodium (Stool Softener) 100 MG CAPSULE 1 CAP PO DAILY PRN CONSTIPATION (Reported) Famotidine 20 MG TABLET 1 TAB PO BID PRN GI (Reported) Finasteride (Proscar) 5 MG TABLET 1 TAB PO DAILY prostate (Reported) Losartan (Cozaar) 100 MG TABLET 1 TAB PO DAILY Blood pressure Solifenacin Succinate (Vesicare) 5 MG TABLET 1 TAB PO DAILY BLADDER (Reported ) Tamsulosin HCl (Flomax) 0.4 MG CAP.ER.24H 1 CAP PO DAILY prostate (Reported) Umeclidinium Brm/Vilanterol Tr (Anoro Ellipta 62.5-25 Mcg INH) 62.5 MCG-25 MCG/ ACTUATION BLST.W.DEV 1 PUFF INH DAILY BREATHING PROBLEMS (Reported) Past History Medical History Neurological: NONE (with rle weakness, 2018), CVA Cardiovascular: AFIB, CAD (sp CABG x3v age 73), hypertension, bilateral carotid stenosis, sp L CEA 2018 Respiratory: COPD Endocrine: diabetes 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 FH: diabetes mellitus Psychosocial History Where Do You Live? Home Who Do You Live With? spouse Services at Home: None Primary Language: Belarusian Smoking Status: Former Smoker ETOH Use: denies use Illicit Drug Use: denies illicit drug use Power of Celebrity Manager/HCP? 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 toes ankle mobile, normal neuro exam of extremity Assessment/Plan Assessment/Plan Patient with Right intertrochanteric hip fracture will be cleared by Medical team and will than have intramedullary [facility] most likely tomorrow. Consult Acknowledgment - Thank you for your consult request. Attending MD Review Statement Attending Statement Attending MD Statement: examined this patient
[2017-05-30 07:58] LABS: ABSOLUTE BASOPHIL COUNT 0 /CUMM (0.0-0.2); ABSOLUTE EOSINOPHIL COUNT 0.2 /CUMM (0.0-0.7); ABSOLUTE GRANULOCYTE CT 8.7 /CUMM (1.4-6.5); ABSOLUTE MONOCYTE COUNT 0.8 /CUMM (0.10-0.60); BASOPHIL % 0.2 % (0.0-2.0); EOSINOPHIL % 1.6 % (0-5); GRANULOCYTE % 81.5 % (42.2-75.2); MEAN CORPUSCULAR HGB 29.6 PG (27.0-31.0); MEAN CORPUSCULAR HGB CONC 34.1 G/DL (33.0-37.0); MEAN CORPUSCULAR VOLUME 86.8 FL (80.0-94.0); MEAN PLATELET VOLUME 9.4 FL (7.4-10.4); PLATELET COUNT 206 /CUMM (130-400); RBC DISTRIBUTION WIDTH 14.1 % (11.5-14.5); RED BLOOD CELL CT 4.53 /CUMM (4.70-6.10); WHITE BLOOD CELL COUNT 10.7 /CUMM (4.8-10.8)
--- NOTE | 2017-05-30 08:06 | Cons- Cardiology ---
General Information and HPI Consulting Request Date of Consult: 05/30/17 Requested By: Martha Gould MD Reason for Consult: Preoperative cardiac assessment Source of Information: patient, old records History of Present Illness: This is a 76-year-old male with a past medical history of coronary artery disease status post three-vessel CABG in 2014, recurrent CVA and bilateral carotid artery disease s/p Left CEA, COPD, paroxysmal atrial fibrillation status post MAZE/left atrial appendage ligation with no recurrent A. fib on subsequent implantable loop recorder (subsequently explanted), ischemic cardiomyopathy with subsequent ejection fraction recovery, hypertension, hyperlipidemia, and cholangiocarcinoma with previous biliary stent who presents to [facility] status post mechanical fall and found to have hip fracture. Patient was in his usual state of health and using his walker when he lost his footing. Denies head strike. Prior to this he had good exertional tolerance with no chest pain, palpitations, or shortness of breath. He denies any dizziness, syncope, slurring of speech, or focal weakness. He had been seen in our office recently and was planned for elective right carotid endarterectomy. His only complaint in the emergency room was hip pain. Allergies/Medications Allergies: Coded Allergies: shellfish derived (Severe, UNKNOWN 02/20/17) acetaminophen (From PERCOCET) (UNKNOWN 02/20/17) oxycodone (From PERCOCET) (UNKNOWN 02/20/17) Home Med List: Amlodipine Besylate 10 MG TABLET 1 TAB PO DAILY blood pressure (Reported) Aspirin (Aspirin*) 81 MG TAB.CHEW 1 TAB PO DAILY HEART HEALTH (Reported) Atorvastatin Calcium 80 MG TABLET 1 TAB PO 1700 Cholesterol Carvedilol 6.25 MG TABLET 1 TAB PO BID HEART (Reported) Docusate Sodium (Stool Softener) 100 MG CAPSULE 1 CAP PO DAILY PRN CONSTIPATION (Reported) Famotidine 20 MG TABLET 1 TAB PO BID PRN GI (Reported) Finasteride (Proscar) 5 MG TABLET 1 TAB PO DAILY prostate (Reported) Losartan (Cozaar) 100 MG TABLET 1 TAB PO DAILY Blood pressure Solifenacin Succinate (Vesicare) 5 MG TABLET 1 TAB PO DAILY BLADDER (Reported ) Tamsulosin HCl (Flomax) 0.4 MG CAP.ER.24H 1 CAP PO DAILY prostate (Reported) Umeclidinium Brm/Vilanterol Tr (Anoro Ellipta 62.5-25 Mcg INH) 62.5 MCG-25 MCG/ ACTUATION BLST.W.DEV 1 PUFF INH DAILY BREATHING PROBLEMS (Reported) Current Medications: Current Medications Sig/Shakir Start time Last Medication Dose Route Stop Time Status Admin Acetaminophen 0 .STK-MED ONE 05/30 0611 DC IV Acetaminophen 1,000 MG Q6P PRN 05/29 2030 AC 05/30 N/A 1 UNIT IV 0610 Acetaminophen 0 .STK-MED ONE 05/29 1518 DC IV Acetaminophen 1,000 MG ONCE ONE 05/29 1515 DC 05/29 N/A 1 UNIT IV 05/29 1529 1518 Amlodipine Besylate 10 MG DAILY 05/30 1000 AC PO Atorvastatin Calcium 80 MG 1700 05/30 1700 AC PO Carvedilol 6.25 MG BID 05/29 2200 AC 05/29 PO 2242 Diazepam 0 .STK-MED ONE 05/29 1813 DC PO Diazepam 2 MG ONCE ONE 05/29 1730 DC 05/29 PO 05/29 1731 1811 Insulin Human Regular 0 Q6 05/29 2359 CAN SC Ketorolac 0 .STK-MED ONE 05/29 1812 DC Tromethamine .ROUTE Ketorolac 15 MG ONCE ONE 05/29 1800 DC 05/29 Tromethamine IV 05/29 1801 1811 Morphine Sulfate 0 .STK-MED ONE 05/29 2239 DC .ROUTE Morphine Sulfate 1 MG ONCE ONE 05/29 2200 DC 05/29 IV 05/29 2201 2242 Review of Systems Review of Systems: Review of systems as per HPI. The remainder of a 10 point review of systems was reviewed and was otherwise negative. 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 FH: diabetes mellitus Psychosocial History Where Do You Live? Home Who Do You Live With? spouse Services at Home: None Primary Language: Zimbabwean Smoking Status: Former Smoker ETOH Use: denies use Illicit Drug Use: denies illicit drug use Power of Civil Process Server/HCP? 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 Exam & Diagnostic Data Vital Signs and I&O Vital Signs Date Time Temp Pulse Resp B/P B/P Pulse O2 O2 Flow FiO2 Mean Ox Delivery Rate 05/31 611 98.4 84 22 154/70 96 Room Air 05/30 0212 98.0 80 20 144/78 98 Room Air 05/29 2242 70 139/62 05/29 2142 97.9 70 18 139/62 93 Room Air 05/29 1746 97.2 66 18 146/74 93 Room Air 05/29 1621 Room Air 05/29 1514 96.8 63 20 165/82 93 Room Air Intake & Output 05/30 0800 05/30 0000 05/29 1600 05/29 0800 05/29 0000 05/28 1600 Intake Total Output Total 150 Balance -150 Output, Urine 150 Patient 192 lb Weight Weight Reported by Patient Measurement Method Physical Exam: General: no apparent distress. Alert. Eyes: No obvious scleral icterus. HEENT: No jugular venous distention Cardiovascular: Normal intensity S1/S2. Regular. Respiratory: No rales or rhonchi Abdomen: Soft, nontender with no guarding or rebound tenderness. Musculoskeletal: No clubbing or cyanosis noted Skin: Warm Neurologic: Normal speech Labs/Christiano Results: Laboratory Tests 05/30 05/29 0600 1540 Chemistry Sodium (137 - 145 mmol/L) 141 141 Potassium (3.5 - 5.1 mmol/L) 4.4 4.4 Chloride (98 - 107 mmol/L) 104 102 Carbon Dioxide (22 - 30 mmol/L) 22 23 Anion Gap (5 - 16) 15 15 BUN (9 - 20 mg/dL) 19 16 Creatinine (0.7 - 1.2 mg/dL) 0.8 1.0 Estimated GFR (>60 ml/min) > 60 > 60 BUN/Creatinine Ratio (7 - 25 %) 23.8 16.0 Glucose (65 - 99 mg/dL) 241 H Calcium (8.4 - 10.2 mg/dL) 9.7 Total Bilirubin (0.2 - 1.3 mg/dL) 0.9 AST (17 - 59 U/L) 17 ALT (21 - 72 U/L) 24 Alkaline Phosphatase (< 127 U/L) 94 Total Protein (6.3 - 8.2 g/dL) 8.1 Albumin (3.5 - 5.0 g/dL) 4.5 Globulin (1.9 - 4.2 gm/dL) 3.6 Albumin/Globulin Ratio (1.1 - 2.2 %) 1.3 Coagulation PT (9.4 - 12.5 SEC) 11.6 INR (0.90 - 1.17) 1.06 APTT (25 - 37 SEC) 27 Hematology CBC w Diff Pending NO MAN DIFF REQ WBC (4.8 - 10.8 /CUMM) Pending 10.6 RBC (4.70 - 6.10 /CUMM) Pending 5.12 Hgb (14.0 - 18.0 G/DL) Pending 15.2 Hct (42 - 52 %) Pending 44.7 MCV (80.0 - 94.0 FL) Pending 87.3 MCH (27.0 - 31.0 PG) Pending 29.7 MCHC (33.0 - 37.0 G/DL) Pending 34.1 RDW (11.5 - 14.5 %) Pending 14.0 Plt Count (130 - 400 /CUMM) Pending 247 MPV (7.4 - 10.4 FL) Pending 8.8 Gran % (42.2 - 75.2 %) 83.0 H Lymphocytes % (20.5 - 51.1 %) 8.8 L Monocytes % (1.7 - 9.3 %) 6.4 Eosinophils % (0 - 5 %) 1.8 Basophils % (0.0 - 2.0 %) 0 Absolute Granulocytes (1.4 - 6.5 /CUMM) 8.8 H Absolute Lymphocytes (1.2 - 3.4 /CUMM) 0.9 L Absolute Monocytes (0.10 - 0.60 /CUMM) 0.7 H Absolute Eosinophils (0.0 - 0.7 /CUMM) 0.2 Absolute Basophils (0.0 - 0.2 /CUMM) 0 Diagnostic Data EKG Results Tracing was personally reviewed and shows sinus rhythm at 58 bpm with old inferior infarct and nonspecific STT abnormality CXR Results No CHF Other Results Hip x-ray Comminuted mildly displaced intratrochanteric fracture of the right hip. Assessment/Plan Assessment/Plan 1. Mechanical fall with hip fracture 2. Fall with recurrent CVA and bilateral carotid artery disease; s/p Left CEA 3. Coronary artery disease status post three-vessel CABG in 2014 4. Paroxysmal atrial fibrillation status post MAZE/left atrial appendage ligation with no recurrent A. fib on subsequent implantable loop recorder ( subsequently explanted) 5. Cholangiocarcinoma with previous biliary stent 6. Ischemic cardiomyopathy with subsequent ejection fraction recovery 7. Hypertensive/hyperlipidemia 8. COPD No evidence of acute coronary syndrome or decompensated congestive heart failure. Prior to this episode the patient did have good exertional tolerance with no exertional symptoms. Cardiac status is currently stable. He represents moderate cardiovascular risk for orthopedic surgery based on his history; if decision is made to proceed with surgery at acknowledged risk I recommended that he be monitored on telemetry for 24 hours post surgical intervention and a postoperative ECG should also be obtained. His outpatient cardiac regimen should be continued. Please call with any additional questions or concerns. Faisal Manning MD [facility] Consult Acknowledgment - Thank you for your consult request.
[2017-05-30 08:07] LABS: HEMATOCRIT 39.3 % (42-52)
--- NOTE | 2017-05-30 09:04 | PN- Housestaff ---
Alok ALVAREZ,Staci 05/30/17 0904: Subjective Follow-up For: Right intertrochanteric fracture of the hip. Subjective: Patient seen and examined. Resting comfortably. IV Tylenol seems to be controlling the pain. Denies any fever shows nausea or palpitations chest pain. Denies any urinary symptoms. On has been evaluated by cardiology in the morning. Currently nothing by mouth for surgical fixation of the fracture. Review of Systems Constitutional: Reports: see HPI. Objective Last 24 Hrs of Vital Signs/I&O Vital Signs Date Time Temp Pulse Resp B/P B/P Pulse O2 O2 Flow FiO2 Mean Ox Delivery Rate 05/30 1022 156/74 05/30 0612 98.4 84 22 154/70 96 Room Air 05/30 0212 98.0 80 20 144/78 98 Room Air 05/29 2242 70 139/62 05/29 2142 97.9 70 18 139/62 93 Room Air 05/29 1746 97.2 66 18 146/74 93 Room Air 05/29 1621 Room Air 05/29 1514 96.8 63 20 165/82 93 Room Air Intake & Output 05/30 1600 05/30 0800 05/30 0000 Intake Total Output Total 150 Balance -150 Output, Urine 150 Physical Exam General Appearance: Alert, Oriented X3, Cooperative Cardiovascular: Normal S1, Normal S2 Lungs: Clear to Auscultation Abdomen: Normal Bowel Sounds, Soft, No Tenderness Neurological: Normal Speech Extremities: tenderness R hip Current Medications: Current Medications Sig/Shakir Start time Last Medication Dose Route Stop Time Status Admin Acetaminophen 0 .STK-MED ONE 05/30 1416 DC IV Acetaminophen 0 .STK-MED ONE 05/30 0611 DC IV Acetaminophen 1,000 MG Q6P PRN 05/29 2030 AC 05/30 N/A 1 UNIT IV 1412 Acetaminophen 0 .STK-MED ONE 05/29 1518 DC IV Acetaminophen 1,000 MG ONCE ONE 05/29 1515 DC 05/29 N/A 1 UNIT IV 05/29 1529 1518 Amlodipine Besylate 10 MG DAILY 05/30 1000 AC PO Atorvastatin Calcium 80 MG 1700 05/30 1700 AC PO Carvedilol 6.25 MG BID 05/29 2200 AC 05/30 PO 1022 Dextrose/Sodium 1,000 ML Q20H 05/30 0945 AC 05/30 Chloride IV 05/31 0544 1133 Diazepam 0 .STK-MED ONE 05/29 181 DC PO Diazepam 2 MG ONCE ONE 05/29 1730 DC 05/29 PO 05/29 173 1811 Insulin Human Regular 0 Q6 05/29 2359 CAN SC Ketorolac 0 .STK-MED ONE 05/29 181 DC Tromethamine .ROUTE Ketorolac 15 MG ONCE ONE 05/29 1800 DC 05/29 Tromethamine IV 05/29 180 1811 Morphine Sulfate 0 .STK-MED ONE 05/29 223 DC .ROUTE Morphine Sulfate 1 MG ONCE ONE 05/29 2199 DC 05/29 IV 05/29 2200 224 Last 24 Hrs of Lab/Christiano Results Last 24 Hrs of Labs/Mics: Laboratory Tests 05/30/17 0600: Anion Gap 15, Estimated GFR > 60, BUN/Creatinine Ratio 23.8, CBC w Diff NO MAN DIFF REQ, RBC 4.53 L, MCV 86.8, MCH 29.6, MCHC 34.1, RDW 14.1, MPV 9.4, Gran % 81.5 H, Lymphocytes % 9.2 L, Monocytes % 7.5, Eosinophils % 1.6, Basophils % 0.2, Absolute Granulocytes 8.7 H, Absolute Lymphocytes 1.0 L, Absolute Monocytes 0.8 H, Absolute Eosinophils 0.2, Absolute Basophils 0 05/29/17 1540: Anion Gap 15, Estimated GFR > 60, BUN/Creatinine Ratio 16.0, Glucose 241 H, Calcium 9.7, Total Bilirubin 0.9, AST 17, ALT 24, Alkaline Phosphatase 94, Total Protein 8.1, Albumin 4.5, Globulin 3.6, Albumin/Globulin Ratio 1.3, PT 11.6, INR 1.06, APTT 27, CBC w Diff NO MAN DIFF REQ, RBC 5.12, MCV 87.3, MCH 29.7, MCHC 34.1, RDW 14.0, MPV 8.8, Gran % 83.0 H, Lymphocytes % 8.8 L, Monocytes % 6.4, Eosinophils % 1.8, Basophils % 0, Absolute Granulocytes 8.8 H, Absolute Lymphocytes 0.9 L, Absolute Monocytes 0.7 H, Absolute Eosinophils 0.2, Absolute Basophils 0 Microbiology 05/29 2253 URINE ROUT: Urine Culture - RES Assessment/Plan Assessment: The patient is 76-year-old gentleman with past medical history of atrial fibrillation, coronary artery disease status post CABG (triple bypass) 3 years ago, hypertension, cholangiocarcinoma with previous biliary stent, bilateral carotid stenosis status post left CEA early 2017, COPD and recent CVA 4 months ago. The patient presented to [place] [facility] on 05/29 with complaint of mechanical fall. Vitals on admission WNL Presenting labs WNL The patient is going to be admitted to general medicine floor and is being treated and evaluated for following conditions #Unwitnessed Mechanical fall The patient suffered a mechanical fall. No loss of consciousness no headache, no dizziness, shortness of breath, chest pain or palpitations. No urinary or fecal incontinence or tongue biting or seizure-like activity. -Monitor vitals -Adequate analgesia Pt is allergic to Percocet. IV Tylenol seems to be working for him. -Ortho consulted he will require surgical fixation of fracture -Scheduled for today -Foleys catheter in place -PT evaluation #Cardiac clearance Patient recently underwent left CEA (after CVA 4 months ago) with and he is scheduled to undergo right CEA by the end of this month. He was seen by Benito Manning MD and cleared for that surgery. -METs score 4 -RCRI is 3. He falls in class IV risk. With 11% risk of major cardiac event -Patient has been cleared by cardiology for the procedure. However he will need telemetry monitoring postoperatively will be transferred to telemetry if his stay remains uneventful he will be transferred back to general medicine floor -will obtain EKG post op #History of atrial fibrillation Paroxysmal atrial fibrillation status post MAZE/left atrial appendage ligation -Continue carvedilol -Patient is not on any anticoagulation #Hx of COPD -TRC #Chronic medical conditions hypertension, hyperlipidemia, GERD, BPH continue home medications amlodipine,Cozaar, statin, and famotidine, finasteride , Vesicare, Flomax Nothing by mouth for anticipated procedure/DVT prophylaxis with Alps only in anticipation of surgery/FC --Begin chemical DVT prophylaxis postoperatively and advance diet Problem List: 1. Intertrochanteric fracture of right hip Pain Ratin Pain Location: R hip Pain Goal: Pain 4 or less Pain Plan: prn Tomorrow's Labs & Rationales: alexandre Krause MD,Rula 05/30/17 1249: Attending MD Review Statement Attending Statement Attending MD Statement: examined this patient, discuss w/resident/PA/HOSPICE AIDE, agreed w/resident/PA/HOSPICE AIDE, reviewed EMR data (avail), discussed with nursing, amended to note Attending Assessment/Plan: Patient seen and examined. Lying in bed and not in any acute distress. Reports some pain in the right hip. Denies chest pain. Denies shortness of breath. Denies cough. Denies any cardiac symptoms at home prior to hospitalization. He was evaluated in the cardiology office and was cleared to undergo elective right carotid endarterectomy. On examination he appears comfortable. Problems: 1. Mechanical fall with right hip fracture. 2. History of stroke. 3. Bilateral carotid artery stenosis status post left carotid endarterectomy scheduled to undergo right carotid endarterectomy in the future. 4. Paroxysmal atrial fibrillation status post Maze procedure and left atrial appendage ligation. Currently in sinus rhythm. 5. History of ischemic cardiomyopathy with improved ejection fraction. 6. COPD 7. Hypertension. Plan: -Surgical evaluation appreciated. No medical contraindication to proceeding with the planned surgery. Patient is at moderate risk for adverse cardiac events per the cardiology service. -We will continue patient on his home cardiac regimen including his antihypertensive medication amlodipine, Coreg and losartan. Resume aspirin postoperatively. Continue atorvastatin. -Bronchodilator therapy per therapist during protocol -Monitor patient on the telemetry unit postoperatively. Obtain EKG postoperatively. -He has allergies to Percocet. Continue pain regimen with intravenous Tylenol. Patient appears quite comfortable on this regimen for now. -Begin chemical DVT prophylaxis postoperatively.
[2017-05-30 15:23] VITALS: BP 162/74
--- NOTE | 2017-05-30 17:02 | PN- Vascular Surgery ---
Subjective Subjective: Patient was scheduled to see Dr. Dean for a Right Carotid Endarterectomy prior to his hip fracture. Discussion has been had as to when to proceed with this as he will be status post right hip ORIF and will require Lovenox postoperatively. Objective Vital Signs and I&Os Vital Signs Date Time Temp Pulse Resp B/P B/P Pulse O2 O2 Flow FiO2 Mean Ox Delivery Rate 05/30 1523 97.4 82 18 162/74 93 05/30 1431 Room Air 05/30 1022 156/74 05/30 0612 98.4 84 22 154/70 96 Room Air 05/30 0212 98.0 80 20 144/78 98 Room Air 05/29 2242 70 139/62 05/29 2142 97.9 70 18 139/62 93 Room Air 05/29 1746 97.2 66 18 146/74 93 Room Air Intake & Output 05/30 1600 05/30 0800 05/30 0000 05/29 1600 05/29 0800 05/29 0000 Intake Total 400 Output Total 300 150 Balance 100 -150 Intake, IV 400 Output, Urine 300 150 Patient 192 lb Weight Weight Reported by Patient Measurement Method Current Medications: Current Medications Sig/Shakir Start time Last Medication Dose Route Stop Time Status Admin Acetaminophen 0 .STK-MED ONE 05/30 1416 DC IV Acetaminophen 0 .STK-MED ONE 05/30 0611 DC IV Acetaminophen 1,000 MG Q6P PRN 05/29 2030 AC 05/30 N/A 1 UNIT IV 1412 Albuterol Sulfate 3 ML EVERY 4 HRS/AWAKE .. 05/30 1445 AC INH Amlodipine Besylate 10 MG DAILY 05/30 1000 AC PO Aspirin 81 MG DAILY 05/31 0900 AC PO Atorvastatin Calcium 80 MG 1700 05/30 1700 AC PO Carvedilol 6.25 MG BID 05/29 2200 AC 05/30 PO 1022 Dextrose/Sodium 1,000 ML Q20H 05/30 0945 AC 05/30 Chloride IV 05/31 0544 1133 Diazepam 0 .STK-MED ONE 05/29 1813 DC PO Diazepam 2 MG ONCE ONE 05/29 1730 DC 05/29 PO 05/29 1731 1811 Insulin Human Regular 0 Q6 05/29 2359 CAN SC Ketorolac 0 .STK-MED ONE 05/29 1812 DC Tromethamine .ROUTE Ketorolac 15 MG ONCE ONE 05/29 1800 DC 05/29 Tromethamine IV 05/29 1801 1811 Losartan Potassium 100 MG DAILY 05/31 0900 AC PO Morphine Sulfate 0 .STK-MED ONE 05/29 2238 DC .ROUTE Morphine Sulfate 1 MG ONCE ONE 05/29 2199 DC 05/29 IV 05/29 2200 224 Results Last 48 Hours of Labs: Laboratory Tests 05/30 05/29 0600 1540 Chemistry Sodium (137 - 145 mmol/L) 141 141 Potassium (3.5 - 5.1 mmol/L) 4.4 4.4 Chloride (98 - 107 mmol/L) 104 102 Carbon Dioxide (22 - 30 mmol/L) 22 23 Anion Gap (5 - 16) 15 15 BUN (9 - 20 mg/dL) 19 16 Creatinine (0.7 - 1.2 mg/dL) 0.8 1.0 Estimated GFR (>60 ml/min) > 60 > 60 BUN/Creatinine Ratio (7 - 25 %) 23.8 16.0 Glucose (65 - 99 mg/dL) 241 H Calcium (8.4 - 10.2 mg/dL) 9.7 Total Bilirubin (0.2 - 1.3 mg/dL) 0.9 AST (17 - 59 U/L) 17 ALT (21 - 72 U/L) 24 Alkaline Phosphatase (< 127 U/L) 94 Total Protein (6.3 - 8.2 g/dL) 8.1 Albumin (3.5 - 5.0 g/dL) 4.5 Globulin (1.9 - 4.2 gm/dL) 3.6 Albumin/Globulin Ratio (1.1 - 2.2 %) 1.3 Coagulation PT (9.4 - 12.5 SEC) 11.6 INR (0.90 - 1.17) 1.06 APTT (25 - 37 SEC) 27 Hematology CBC w Diff NO MAN DIFF REQ NO MAN DIFF REQ WBC (4.8 - 10.8 /CUMM) 10.7 10.6 RBC (4.70 - 6.10 /CUMM) 4.53 L 5.12 Hgb (14.0 - 18.0 G/DL) 13.4 L 15.2 Hct (42 - 52 %) 39.3 L 44.7 MCV (80.0 - 94.0 FL) 86.8 87.3 MCH (27.0 - 31.0 PG) 29.6 29.7 MCHC (33.0 - 37.0 G/DL) 34.1 34.1 RDW (11.5 - 14.5 %) 14.1 14.0 Plt Count (130 - 400 /CUMM) 206 247 MPV (7.4 - 10.4 FL) 9.4 8.8 Gran % (42.2 - 75.2 %) 81.5 H 83.0 H Lymphocytes % (20.5 - 51.1 %) 9.2 L 8.8 L Monocytes % (1.7 - 9.3 %) 7.5 6.4 Eosinophils % (0 - 5 %) 1.6 1.8 Basophils % (0.0 - 2.0 %) 0.2 0 Absolute Granulocytes (1.4 - 6.5 /CUMM) 8.7 H 8.8 H Absolute Lymphocytes (1.2 - 3.4 /CUMM) 1.0 L 0.9 L Absolute Monocytes (0.10 - 0.60 /CUMM) 0.8 H 0.7 H Absolute Eosinophils (0.0 - 0.7 /CUMM) 0.2 0.2 Absolute Basophils (0.0 - 0.2 /CUMM) 0 0 Assessment/Plan Assessment/Plan This is a 76 yo M with right carotid stenosis, right comminuted mildly displaced intratrochanteric fracture, cva with rle weakness 3 months ago, and cad sp cabg x 3v, with significant right hip pain, requiring surgical fixation of fracture today. Discussion has been had with Dr. Rodriguez who recommends proceeding with right carotid endarterectomy before 3 weeks postoperatively. At that time the Lovenox can be held that should be restarted postprocedure. The patient will require repeat cardiac and medical clearance as this will be passed [address] Dean will arrange this through the office. Patient should make an appointment with Dr. Dean within 1-2 weeks from discharge. This information has been relayed to Dr. Dean. Problem List: 1. Stenosis of right carotid artery Core Measures Venous Thromboembolism VTE Risk Factors Age>40 No Mechanical VTE Prophylaxis d/t N/A MechProphylax Ordered No VTE Pharm Prophylaxis d/t Other (anticipated procedure)
--- NOTE | 2017-05-30 20:50 | RADIOLOGY REPORT ---
EXAMINATION: Fluoroscopy in the operating suite for reduction of the intertrochanteric fracture of the right hip CLINICAL INFORMATION: Intertrochanteric fracture of the right hip COMPARISON: Preoperative x-rays of the right hip TECHNIQUE: Intraoperative fluoroscopy was provided to Dr. Lewis Rodriguez for the reduction of the displaced comminuted right hip fracture. 5 spot films are cemented for review. FINDINGS/IMPRESSION: The images document the placement of a intramedullary quinten with compression nail and distal fixation screw across the fracture. Alignment is anatomic. No complications are seen. Please refer to the operative notes for further details.
[2017-05-30 22:46] VITALS: BP 118/56
--- NOTE | 2017-05-30 23:13 | PN- Orthopedic ---
Subjective Subjective: Patient doing well since arriving back to the floor. He has not been out of bed yet. Pain is well-controlled. He denies any other issues or complaints. No other concerns per nursing. Objective Vital Signs and I&Os Vital Signs Date Time Temp Pulse Resp B/P B/P Pulse O2 O2 Flow FiO2 Mean Ox Delivery Rate 05/30 2245 98.6 54 22 118/56 92 Nasal 4.0L Cannula 05/30 2228 Nasal 4.0L Cannula 05/30 2156 91 Nasal 4.0L Cannula 05/30 1745 98.5 82 20 164/80 92 Room Air 05/30 1523 97.4 82 18 162/74 93 05/30 1431 Room Air 05/30 1022 156/74 05/30 0612 98.4 84 22 154/70 96 Room Air 05/30 0212 98.0 80 20 144/78 98 Room Air Intake & Output 05/30 1600 05/30 0800 05/30 0000 05/29 1600 05/29 0800 05/29 0000 Intake Total 400 Output Total 300 150 Balance 100 -150 Intake, IV 400 Output, Urine 300 150 Patient 192 lb Weight Weight Reported by Patient Measurement Method Physical Exam: General: Alert, awake, no acute distress Right Hip: Dressing is clean, dry, and intact w/out any strikethrough Extremities: Neurovascular status is intact and equal bilaterally, no clubbing, cyanosis, or edema Current Medications: Current Medications Sig/Shakir Start time Last Medication Dose Route Stop Time Status Admin Acetaminophen 0 .STK-MED ONE 05/30 1416 DC IV Acetaminophen 0 .STK-MED ONE 05/30 0611 DC IV Acetaminophen 1,000 MG Q6P PRN 05/29 2030 AC 05/30 N/A 1 UNIT IV 1412 Albuterol Sulfate 3 ML EVERY 4 HRS/AWAKE .. 05/30 1445 AC INH Amlodipine Besylate 10 MG DAILY 05/30 1000 AC PO Aspirin 81 MG DAILY 05/31 0900 AC PO Atorvastatin Calcium 80 MG 1700 05/30 1700 AC 05/30 PO 1724 Carvedilol 6.25 MG BID 05/29 2200 AC 05/30 PO 1022 Dextrose/Sodium 1,000 ML Q20H 05/30 0945 AC 05/30 Chloride IV 05/31 0544 1133 Losartan Potassium 100 MG DAILY 05/31 0900 AC PO Results Last 48 Hours of Labs: Laboratory Tests 05/30 05/29 0600 1540 Chemistry Sodium (137 - 145 mmol/L) 141 141 Potassium (3.5 - 5.1 mmol/L) 4.4 4.4 Chloride (98 - 107 mmol/L) 104 102 Carbon Dioxide (22 - 30 mmol/L) 22 23 Anion Gap (5 - 16) 15 15 BUN (9 - 20 mg/dL) 19 16 Creatinine (0.7 - 1.2 mg/dL) 0.8 1.0 Estimated GFR (>60 ml/min) > 60 > 60 BUN/Creatinine Ratio (7 - 25 %) 23.8 16.0 Glucose (65 - 99 mg/dL) 241 H Calcium (8.4 - 10.2 mg/dL) 9.7 Total Bilirubin (0.2 - 1.3 mg/dL) 0.9 AST (17 - 59 U/L) 17 ALT (21 - 72 U/L) 24 Alkaline Phosphatase (< 127 U/L) 94 Total Protein (6.3 - 8.2 g/dL) 8.1 Albumin (3.5 - 5.0 g/dL) 4.5 Globulin (1.9 - 4.2 gm/dL) 3.6 Albumin/Globulin Ratio (1.1 - 2.2 %) 1.3 Coagulation PT (9.4 - 12.5 SEC) 11.6 INR (0.90 - 1.17) 1.06 APTT (25 - 37 SEC) 27 Hematology CBC w Diff NO MAN DIFF REQ NO MAN DIFF REQ WBC (4.8 - 10.8 /CUMM) 10.7 10.6 RBC (4.70 - 6.10 /CUMM) 4.53 L 5.12 Hgb (14.0 - 18.0 G/DL) 13.4 L 15.2 Hct (42 - 52 %) 39.3 L 44.7 MCV (80.0 - 94.0 FL) 86.8 87.3 MCH (27.0 - 31.0 PG) 29.6 29.7 MCHC (33.0 - 37.0 G/DL) 34.1 34.1 RDW (11.5 - 14.5 %) 14.1 14.0 Plt Count (130 - 400 /CUMM) 206 247 MPV (7.4 - 10.4 FL) 9.4 8.8 Gran % (42.2 - 75.2 %) 81.5 H 83.0 H Lymphocytes % (20.5 - 51.1 %) 9.2 L 8.8 L Monocytes % (1.7 - 9.3 %) 7.5 6.4 Eosinophils % (0 - 5 %) 1.6 1.8 Basophils % (0.0 - 2.0 %) 0.2 0 Absolute Granulocytes (1.4 - 6.5 /CUMM) 8.7 H 8.8 H Absolute Lymphocytes (1.2 - 3.4 /CUMM) 1.0 L 0.9 L Absolute Monocytes (0.10 - 0.60 /CUMM) 0.8 H 0.7 H Absolute Eosinophils (0.0 - 0.7 /CUMM) 0.2 0.2 Absolute Basophils (0.0 - 0.2 /CUMM) 0 0 Recent Imaging Studies: Right Hip X-Ray 05/30/17: The images document the placement of a intramedullary quinten with compression nail and distal fixation screw across the fracture. Alignment is anatomic. No complications are seen. Assessment/Plan Assessment/Plan This is a 76 yo M with a PMHx of a recent cva with rle weakness, and cad s/p cabg x 3v now s/p a fall with a Right comminuted, mildly displaced intratrochanteric fracture, POD#0 s/p Right Hip Gamma Nail. 1. PT evaluation, weight bearing as tolerated with a rolling walker, anticipate 2-3 day hospital stay and either home with services or str 2. Continue current analgesia and bowel regimen 3. Continue asa 81mg qdaily for DVT prophylaxis along with pneumatic compression boots 4. Continue regular diet, HL IVF once tolerating adequate PO intake 5. DC Addison tomorrow 6. Dressing change by the surgical team on POD#2 7. Home medications restarted 8. Wean 02 to off, goal sat >92% 9. Will d/w Dr. Rodriguez Problem List: 1. Intertrochanteric fracture of right hip 2. Status post-operative repair of closed fracture of right hip Core Measures Venous Thromboembolism VTE Risk Factors Age>40 No Mechanical VTE Prophylaxis d/t N/A MechProphylax Ordered No VTE Pharm Prophylaxis d/t Other (anticipated procedure)
[2017-05-31] VITALS: BP 150/96
[2017-05-31 04:00] VITALS: BP 140/70
--- NOTE | 2017-05-31 07:14 | PN- Housestaff ---
Fish ALVAREZ,Nima 05/31/17 0714: Subjective Follow-up For: Right femur intertrochanteric fracture Tele-Events Since Last Visit: 7 beat run of NSVT Subjective: Patient was seen and examined at bedside. He is resting comfortably. He had no acute events overnight. He reports significant soreness of the right hip. Other than that he has no complaints. Review of Systems Constitutional: Denies: chills, fever. EENTM: Reports: no symptoms. Cardiovascular: Reports: chest pain. Denies: palpitations. Respiratory: Reports: no symptoms. Gastrointestinal: Reports: no symptoms. Genitourinary: Reports: no symptoms. Musculoskeletal: Reports: no symptoms. Skin: Reports: no symptoms. Objective Last 24 Hrs of Vital Signs/I&O Vital Signs Date Time Temp Pulse Resp B/P B/P Pulse O2 O2 Flow FiO2 Mean Ox Delivery Rate 05/31 0400 97.6 59 20 140/70 98 Nasal Cannula 05/31 0108 65 150/96 05/31 0000 97.6 62 20 150/96 95 Nasal Cannula 05/30 2246 98.6 54 22 118/56 92 Nasal 4.0L Cannula 05/30 2229 Nasal 4.0L Cannula 05/30 2157 91 Nasal 4.0L Cannula 05/30 1745 98.5 82 20 164/80 92 Room Air 05/30 1523 97.4 82 18 162/74 93 05/30 1431 Room Air 05/30 1022 156/74 Intake & Output 05/31 0800 05/31 0000 05/30 1600 Intake Total 50 400 Output Total 500 300 Balance -500 50 100 Intake, IV 50 400 Output, Urine 500 300 Patient 212 lb Weight Weight Bed scale Measurement Method Physical Exam General Appearance: Alert, Oriented X3, Cooperative, No Acute Distress Skin: No Rashes Cardiovascular: Regular Rate, Normal S1, Normal S2 Lungs: Clear to Auscultation, Normal Air Movement Abdomen: Normal Bowel Sounds, Soft, No Tenderness Neurological: Normal Speech, Normal Tone, Sensation Intact Extremities: R lateral thigh with surgical dressing, no saturation or leakage, no surrounding hematoma Vascular: Normal Pulses, Pulses Symmetrical Current Medications: Current Medications Sig/Shakir Start time Last Medication Dose Route Stop Time Status Admin Acetaminophen 0 .STK-MED ONE 05/30 1416 DC IV Acetaminophen 1,000 MG Q6P PRN 05/29 2029 AC 05/30 N/A 1 UNIT IV 1412 Albuterol Sulfate 3 ML EVERY 4 HRS/AWAKE .. 05/30 1445 AC INH Amlodipine Besylate 10 MG DAILY 05/30 1000 AC PO Aspirin 81 MG DAILY 05/31 0900 AC PO Atorvastatin Calcium 80 MG 1700 05/30 1700 AC 05/30 PO 1724 Carvedilol 6.25 MG BID 05/29 2200 AC 05/31 PO 0108 Cefazolin Sodium 1,000 MG IQ8 05/31 0000 AC 05/31 IV 05/31 0801 0108 Dexamethasone 4 MG .STK-MED ONE 05/30 1816 DC IM 05/30 1817 Dextrose/Sodium 1,000 ML Q20H 05/30 0945 DC 05/30 Chloride IV 05/31 0544 1133 Docusate Sodium 100 MG BID 05/30 2308 AC 05/31 PO 0108 Enoxaparin Sodium 40 MG DAILY 05/31 0900 AC SC Fentanyl Citrate 200 MCG .STK-MED ONE 05/30 1816 DC IM 05/30 1817 Ketamine HCl 50 MG .STK-MED ONE 05/30 181 DC IM 05/30 1818 Losartan Potassium 100 MG DAILY 05/31 0900 AC PO Midazolam HCl 2 MG .STK-MED ONE 05/30 1816 DC IM 05/30 1817 Morphine Sulfate 2 MG Q2P PRN 05/30 2315 AC 05/31 IV 0123 Morphine Sulfate 4 MG Q2P PRN 05/30 2315 AC IV Ondansetron HCl 8 MG .STK-MED ONE 05/30 1816 DC IM 05/30 1817 Oxycodone/ 1 TAB Q4-6 PRN PRN 05/30 2315 DC Acetaminophen PO Polyethylene Glycol 17 GM DAILY 05/31 0900 AC PO Tranexamic Acid 1,000 MG .STK-MED ONE 05/30 1816 DC IV 05/30 1817 Last 24 Hrs of Lab/Christiano Results Last 24 Hrs of Labs/Mics: Laboratory Tests 05/31/17 0617: CBC w Diff Pending, WBC Pending, RBC Pending, Hgb Pending, Hct Pending, MCV Pending, MCH Pending, MCHC Pending, RDW Pending, Plt Count Pending, MPV Pending Assessment/Plan Assessment: Patient is a 76-year-old male with PMH significant for paroxysmal A. fib, coronary artery disease status post CABG, hypertension, cholangiocarcinoma was previously biliary stenting, recent CVA with carotid stenosis status post carotid endarterectomy, patient did have residual leg weakness however he had been working with physical therapy and was portably back to baseline, who presented to [facility] status post mechanical fall with right intertrochanteric femur fracture. Patient went for surgical repair of intertrochanteric right hip fracture on 05/30/17, he was monitored on the telemetry postoperatively floor due to significant cardiac history. #Unwitnessed mechanical fall with right intertrochanteric hip fracture Status post surgical repair on 05/30/17. -Continue to monitor on telemetry -Continue adequate pain control -We'll start Eliquis for DVT prophylaxis tomorrow morning -Follow orthopedic recommendations -PT is recommending short-term rehabilitation #Chronic medical problems -Continue home medications except-continue TRC nebs for COPD Diet: Heart healthy diet DVT prophylaxis: Alps, lovenox CODE STATUS: Full code Problem List: 1. Stenosis of right carotid artery 2. Intertrochanteric fracture of right hip Pain Ratin Pain Location: R hip Pain Goal: Pain 4 or less Pain Plan: pain pathway Tomorrow's Labs & Rationales: BEP, Mg Martha Gould MD 05/31/17 1052: Attending MD Review Statement Attending Statement Attending MD Statement: examined this patient, discuss w/resident/PA/PROGRAM CHECKER, agreed w/resident/PA/PROGRAM CHECKER, reviewed EMR data (avail) Attending Assessment/Plan: 76M PMH CAD s/p CABG 2014, T2DM, chronic atrial fibrillation s/p MAZE procedure, ischemic cardiomyopathy, COPD, cholangiocarcinoma, recent stroke with residual right sided weakness with bilateral carotid disease s/p left CEA in February 2017 , presents with mechanical fall at home, tripped on a stool, no LOC or head strike, no symptoms prior or after fall, found to have right mildly displaced comminuted intertrochanteric fracture of the hip. Underwent hip repair on 05/30 successfully. Today patient complains of right hip pain and weakness. It is improved with IV Morphine. Overnight he had a 7 beat run of v-tach. 1. Closed right displaced comminuted intertrochanteric hip fracture 2. Fall, initial 3. NSVT Plan - Continue on telemetry - Cardiology and orthopedic consult - Pain control, transition to PO pain meds - Continue home medications - PT eval - DVT PPx - Anticipated discharge to [facility] tomorrow if bed is available on PO pain meds. Send CMR to pharmacy for review, check only BEP tomorrow and Mg - Start Eliquis tomorrow for DVT PPx post-op for 6 weeks
[2017-05-31 07:56] LABS: ABSOLUTE BASOPHIL COUNT 0 /CUMM (0.0-0.2); ABSOLUTE EOSINOPHIL COUNT 0 /CUMM (0.0-0.7); ABSOLUTE GRANULOCYTE CT 13.1 /CUMM (1.4-6.5); ABSOLUTE LYMPH COUNT 0.7 /CUMM (1.2-3.4); ABSOLUTE MONOCYTE COUNT 0.9 /CUMM (0.10-0.60); BASOPHIL % 0 % (0.0-2.0); EOSINOPHIL % 0.1 % (0-5); GRANULOCYTE % 89.1 % (42.2-75.2); MEAN CORPUSCULAR HGB 29.9 PG (27.0-31.0); MEAN CORPUSCULAR HGB CONC 33.8 G/DL (33.0-37.0); MEAN CORPUSCULAR VOLUME 88.6 FL (80.0-94.0); MEAN PLATELET VOLUME 8.9 FL (7.4-10.4); PLATELET COUNT 190 /CUMM (130-400); RBC DISTRIBUTION WIDTH 13.8 % (11.5-14.5); RED BLOOD CELL CT 4.07 /CUMM (4.70-6.10)
[2017-05-31 08:39] LABS: WHITE BLOOD CELL COUNT 14.7 /CUMM (4.8-10.8)
--- NOTE | 2017-05-31 12:46 | Operative Report ---
Operative/Inv Procedure Report Surgery Date: 05/30/17 Name of Procedure: Right hip intramedullary nailing for intertrochanteric hip fracture Pre-Operative Diagnosis: Right intertrochanteric hip fracture Post-Operative Diagnosis: Right intertrochanteric hip fracture Estimated Blood Loss: 50ml to 100ml Surgeon/Child Attendant: Dr. Lewis Rodriguez Anesthesia: spinal anesthesia Operative/Procedure Note Note: Patient was brought to the operating room and given a spinal anesthetic by the anesthesia team. He then received 2 g of Kefzol antibiotics. He was transferred to the fracture table placed in longitudinal fraction and an anatomic reduction of his right hip was carried out mechanically. The right hip and leg were prepped and draped in the usual sterile fashion. Appropriate timeout was carried out regarding the right leg was signed and verified by the nursing staff and myself. A lateral incision was made just proximal to the greater trochanter. Guidewire was placed down the femoral shaft through the greater trochanter. Appropriate proximal reaming was carried out. A 1025 nail was placed using the gamma striker nail. This was a short nail. Appropriate guidewire was then placed up into the head and neck area measurements taken and 100 mm lag screw was placed. This was locked in place using the appropriate proximal locking screw. Distal fixation was then carried out using a 5 mm x 40 mm screw. After thorough fixation and anatomic position x-rays were taken for irrigation carried out the wound closed in layers the patient sent to recovery room in stable condition all complications and a dictation by Dr. Rodriguez thank you
--- NOTE | 2017-05-31 12:50 | PN- Orthopedic ---
Subjective Subjective: Patient 76-year-old male 1 day status post intermedullary rodding right femur for intratrochanteric hip fracture. Patient is alert oriented sitting in a chair complaining of some pain but doing well otherwise. Objective Vital Signs and I&Os Vital Signs Date Time Temp Pulse Resp B/P B/P Pulse O2 O2 Flow FiO2 Mean Ox Delivery Rate 05/31 1118 Nasal 4.0L Cannula 05/31 1116 140/70 05/31 1116 140/70 05/31 0922 140/70 05/31 0400 97.6 59 20 140/70 98 Nasal Cannula 05/31 0108 65 150/96 05/31 0000 97.6 62 20 150/96 95 Nasal Cannula 05/30 2246 98.6 54 22 118/56 92 Nasal 4.0L Cannula 05/30 2229 Nasal 4.0L Cannula 05/30 2157 91 Nasal 4.0L Cannula 05/30 1745 98.5 82 20 164/80 92 Room Air 05/30 1523 97.4 82 18 162/74 93 05/30 1431 Room Air Intake & Output 05/31 1600 05/31 0800 05/31 0000 05/30 1600 05/30 0800 05/30 0000 Intake Total 50 400 Output Total 500 300 150 Balance -500 50 100 -150 Intake, IV 50 400 Output, Urine 500 300 150 Patient 212 lb Weight Weight Bed scale Measurement Method Physical Exam: On physical examination he has a clean dressing at this point in time he has good hip range of motion he's neurologically intact in that lower extremity and otherwise doing well he was sitting up in a chair. Assessment/Plan Assessment/Plan Patient doing well 1 day status post intramedullary nailing right intertrochanteric hip fracture. He will be on anticoagulation he can ambulate weightbearing as tolerated he'll do range of motion of the hip and knee. He will finish out his antibiotics today. Core Measures Venous Thromboembolism VTE Risk Factors Age>40 No Mechanical VTE Prophylaxis d/t N/A MechProphylax Ordered No VTE Pharm Prophylaxis d/t Other (anticipated procedure) Attending MD Review Statement Attending Statement Attending MD Statement: examined this patient
--- NOTE | 2017-05-31 14:26 | Discharge Summary ---
Visit Information Visit Dates Admission Date: 05/29/17 Discharge Date: 06/01/2017 Hospital Course Course Attending Physician: Martha Gould MD Primary Care Physician: Issac ALVAREZ,[place] Hospital Course: Patient is a 76-year-old male with PMH significant for paroxysmal A. fib, coronary artery disease status post CABG, hypertension, cholangiocarcinoma was previously biliary stenting, recent CVA with carotid stenosis status post carotid endarterectomy, patient did have residual leg weakness however he had been working with physical therapy and was portably back to baseline, who then presented to [facility] status post mechanical fall with right intertrochanteric femur fracture. Patient went for fixation of right hip trochanteric fracture w/ORIF with intramedullary rodding on 05/30/17, he was monitored on the telemetry postoperatively floor due to significant cardiac history. * Please resume Eliquis for DVT ppx. Note that pt is scheduled for end arterectomy with in about three weeks so the Eliquis will have to be stopped in a timely fashion prior to the surgery. As such, please follow up with Dr. Dean in one week after discharge to get recommendations on when to best stop the anticoagulant. * Follow-up as outpatient [address] Rodriguez * Personal dressing changes daily, dressing changed today * Personal dressing changes daily, dressing changed today * Weight bearing as tolerated right lower extremity. OOB w Physical therapy. Complications: NONE Allergies: Coded Allergies: shellfish derived (Severe, UNKNOWN 02/20/17) acetaminophen (From PERCOCET) (UNKNOWN 02/20/17) oxycodone (From PERCOCET) (UNKNOWN 02/20/17) Pertinent Lab Results: Intake & Output 06/01 1600 06/01 0800 06/01 0000 Intake Total 0 420 Output Total 75 150 Balance -75 270 Intake, IV 20 Intake, Oral 0 400 Number 0 Bowel Movements Output, Urine 75 150 Patient 97.267 kg Weight Laboratory Tests 06/01 0625 Chemistry Sodium (137 - 145 mmol/L) 137 Potassium (3.5 - 5.1 mmol/L) 4.4 Chloride (98 - 107 mmol/L) 99 Carbon Dioxide (22 - 30 mmol/L) 26 Anion Gap (5 - 16) 11 BUN (9 - 20 mg/dL) 30 H Creatinine (0.7 - 1.2 mg/dL) 1.0 Estimated GFR (>60 ml/min) > 60 BUN/Creatinine Ratio (7 - 25 %) 30.0 H Magnesium (1.6 - 2.3 mg/dL) 2.0 Hematology CBC w Diff NO MAN DIFF REQ WBC (4.8 - 10.8 /CUMM) 10.8 RBC (4.70 - 6.10 /CUMM) 3.35 L Hgb (14.0 - 18.0 G/DL) 10.2 L Hct (42 - 52 %) 29.6 L MCV (80.0 - 94.0 FL) 88.3 MCH (27.0 - 31.0 PG) 30.4 MCHC (33.0 - 37.0 G/DL) 34.4 RDW (11.5 - 14.5 %) 14.0 Plt Count (130 - 400 /CUMM) 183 MPV (7.4 - 10.4 FL) 8.9 Gran % (42.2 - 75.2 %) 73.1 Lymphocytes % (20.5 - 51.1 %) 12.7 L Monocytes % (1.7 - 9.3 %) 10.8 H Eosinophils % (0 - 5 %) 3.1 Basophils % (0.0 - 2.0 %) 0.3 Absolute Granulocytes (1.4 - 6.5 /CUMM) 7.9 H Absolute Lymphocytes (1.2 - 3.4 /CUMM) 1.4 Absolute Monocytes (0.10 - 0.60 /CUMM) 1.2 H Absolute Eosinophils (0.0 - 0.7 /CUMM) 0.3 Absolute Basophils (0.0 - 0.2 /CUMM) 0 Disposition Summary Disposition Principal Diagnosis: ORIF Additional Diagnosis: PAF Discharge Disposition: SNF Discharge Instructions General Discharge Information Code Status: Full Code Patient's Diet: TOELRATED Patient's Activity: TOLERATED Follow-Up Instructions/Appts: SEE ABOVE Medications at Discharge Discharge Medications: Continue taking these medications: Amlodipine Besylate (Amlodipine Besylate) 10 MG TABLET 1 Tablet ORAL DAILY Comments: Last Taken:02/27/17 Time: 9AM Tamsulosin HCl (Flomax) 0.4 MG CAP.ER.24H 1 Capsule ORAL DAILY Comments: Last Taken:02/27/17 Time: 9AM Finasteride (Proscar) 5 MG TABLET 1 Tablet ORAL DAILY Comments: Last Taken:02/27/17 Time: 9AM Aspirin (Aspirin*) 81 MG TAB.CHEW 1 Tablet ORAL DAILY Qty = 30 Comments: Last Taken:02/27/17 Time: 9AM Docusate Sodium (Stool Softener) 100 MG CAPSULE 1 Capsule ORAL DAILY as needed for CONSTIPATION Famotidine (Famotidine) 20 MG TABLET 1 Tablet ORAL TWICE DAILY as needed for GI Solifenacin Succinate (Vesicare) 5 MG TABLET 1 Tablet ORAL DAILY Comments: NOT TAKEN Carvedilol (Carvedilol) 6.25 MG TABLET 1 Tablet ORAL TWICE DAILY Qty = 180 Comments: Last Taken:02/27/17 Time:9AM Umeclidinium Brm/Vilanterol Tr (Anoro Ellipta 62.5-25 Mcg INH) 62.5 MCG-25 MCG/ ACTUATION BLST.W.DEV 1 PUFF Inhale through mouth DAILY Comments: NOT TAKEN Atorvastatin Calcium (Atorvastatin Calcium) 80 MG TABLET 1 Tablet ORAL 5 PM Qty = 30 Comments: Last Taken:02/26/17 Time:5PM Losartan (Cozaar) 100 MG TABLET 1 Tablet ORAL DAILY Qty = 30 Start taking the following new medications: Apixaban (Eliquis) 2.5 MG TABLET 2.5 Milligram ORAL TWICE DAILY Qty = 84 No Refills Tramadol HCl (Ultram) 50 MG TABLET 1 Tablet ORAL THREE TIMES A DAY NEEDED Qty = 10 No Refills Copies To: Issac ALVAREZ,Gabriella
[2017-05-31 14:56] VITALS: BP 136/78
[2017-05-31] MEDS ORDERED: ELIQUIS2.5 M1 PO (19:18)
[2017-05-31] MEDS ORDERED: ULTRAM50 M1 PO (19:18)
--- NOTE | 2017-05-31 19:27 | Patient Discharge Instructions ---
Discharge Instructions General Discharge Information You were seen/treated for: R hip fracture Special Instructions: Follow-up with your primary care physician within 1 week of discharge. Follow-up with Dr. Jeter within 1-2 weeks of discharge for further care for your carotid stenosis. Follow-up Dr. Rodriguez within 2 weeks of discharge. Acute Coronary Syndrome Inclusion Criteria At DC or during hospital stay patient has or had the following: ACS DIAGNOSIS No Discharge Core Measures Meds if any: Prescribed or Continued at Discharge Meds if any: NOT Prescribed or Continued at Discharge Congestive Heart Failure Inclusion Criteria At DC or during hospital stay patient has or had the following: CHF DIAGNOSIS No Discharge Core Measures Meds if any: Prescribed or Continued at Discharge Meds if any: NOT Prescribed or Continued at Discharge Cerebrovascular accident Inclusion Criteria At DC or during hospital stay patient has or had the following: CVA/TIA Diagnosis No Discharge Core Measures Meds if any: Prescribed or Continued at Discharge Meds if any: NOT Prescribed or Continued at Discharge Venous thromboembolism Inclusion Criteria VTE Diagnosis No VTE Type NONE VTE Confirmed by (Test) NONE Discharge Core Measures - Per Current guidelines, there needs to be overlap - treatment for the first 5 days of Warfarin therapy. - If discharged on Warfarin prior to 5 days of - overlap therapy, the patient will need to be - assessed for post discharge needs including - *Post discharge parental anticoagulation - *Warfarin and/or parental anticoagulation education - *Follow up date to check INR post discharge At least 5 days overlap therapy as Inpatient No Meds if any: Prescribed or Continued at Discharge Note: Overlap Therapy is Warfarin and Anticoagulant Meds if any: NOT Prescribed or Continued at Discharge
[2017-05-31 22:57] VITALS: BP 116/58
[2017-06-01 07:01] VITALS: BP 108/67
--- NOTE | 2017-06-01 07:40 | PN- Orthopedic ---
Subjective Subjective: Complaints of soreness to the right hip and thigh. No fever no flulike illness. Pain as expected. Objective Vital Signs and I&Os Vital Signs Date Time Temp Pulse Resp B/P B/P Pulse O2 O2 Flow FiO2 Mean Ox Delivery Rate 06/01 0701 98.0 60 20 108/67 90 06/01 0000 Nasal 1.0L Cannula 05/31 2257 98.2 58 18 116/58 90 Nasal 2.0L Cannula 05/31 2229 61 126/60 05/31 2046 96 Nasal 1.0L Cannula 05/31 1600 Nasal 2.0L Cannula 05/31 1456 98.1 63 20 136/78 96 05/31 1320 93 Nasal 1.0L Cannula 05/31 1118 Nasal 4.0L Cannula 05/31 1116 140/70 05/31 1116 140/70 05/31 0922 140/70 05/31 0800 99 Nasal 4.0L Cannula Intake & Output 06/01 0800 06/01 0000 05/31 1600 05/31 0800 05/31 0000 05/30 1600 Intake Total 420 480 50 400 Output Total 150 600 500 300 Balance 270 -120 -500 50 100 Intake, IV 20 50 400 Intake, Oral 400 480 Number 0 Bowel Movements Output, Urine 150 600 500 300 Patient 214 lb 212 lb Weight Weight Bed scale Measurement Method Physical Exam: Well-developed well-nourished no apparent distress. HEENT: Atraumatic, extraocular motion intact Neck: Supple, no lymphadenopathy Respiratory: No respiratory distress Extremities: No edema RIGHT lower extremity hip dressing in place, Dressing clean dry and intact with minimal bloody staining Incision without erythema Mild thigh swelling No signs of infection. Dressing changed, dry sterile dressing applied No shortening or rotation Hip range of motion is limited and without unexpected pain Neurovascularly intact distally Bilateral calves are supple, nontender. Neuro: Alert and oriented x3 Psych: Mood affect normal, normal memory normal judgment. Skin: Warm and dry, no rash on exposed skin Results Last 48 Hours of Labs: Laboratory Tests 06/01 05/31 05/31 0625 0725 0617 Chemistry Sodium (137 - 145 mmol/L) Pending 139 Potassium (3.5 - 5.1 mmol/L) Pending 4.5 Chloride (98 - 107 mmol/L) Pending 102 Carbon Dioxide (22 - 30 mmol/L) Pending 23 Anion Gap (5 - 16) Pending 14 BUN (9 - 20 mg/dL) Pending 17 Creatinine (0.7 - 1.2 mg/dL) Pending 0.7 Estimated GFR (>60 ml/min) > 60 BUN/Creatinine Ratio (7 - 25 %) Pending 24.3 Magnesium (1.6 - 2.3 mg/dL) Pending 1.8 Hematology CBC w Diff Pending NO MAN DIFF REQ WBC (4.8 - 10.8 /CUMM) Pending 14.7 H RBC (4.70 - 6.10 /CUMM) Pending 4.07 L Hgb (14.0 - 18.0 G/DL) Pending 12.2 L Hct (42 - 52 %) Pending 36.0 L MCV (80.0 - 94.0 FL) Pending 88.6 MCH (27.0 - 31.0 PG) Pending 29.9 MCHC (33.0 - 37.0 G/DL) Pending 33.8 RDW (11.5 - 14.5 %) Pending 13.8 Plt Count (130 - 400 /CUMM) Pending 190 MPV (7.4 - 10.4 FL) Pending 8.9 Gran % (42.2 - 75.2 %) 89.1 H Lymphocytes % (20.5 - 51.1 %) 4.9 L Monocytes % (1.7 - 9.3 %) 5.9 Eosinophils % (0 - 5 %) 0.1 Basophils % (0.0 - 2.0 %) 0 Absolute Granulocytes (1.4 - 6.5 /CUMM) 13.1 H Absolute Lymphocytes (1.2 - 3.4 /CUMM) 0.7 L Absolute Monocytes (0.10 - 0.60 /CUMM) 0.9 H Absolute Eosinophils (0.0 - 0.7 /CUMM) 0 Absolute Basophils (0.0 - 0.2 /CUMM) 0 Assessment/Plan Assessment/Plan Postop day #2 status post right hip H trochanteric fracture open reduction internal fixation with intramedullary rodding Weight bearing as tolerated right lower extremity. OOB w Physical therapy. Weightbearing as tolerated. Follow labs. Personal dressing changes daily, dressing changed today Lovenox for DVT prophylaxis 6 weeks. Likely will need short-term rehabilitation Follow-up as outpatient [address] Rodriguez Will also need follow-up for right carotid endarterectomy to be scheduled for approximately [address] Navarro Core Measures Venous Thromboembolism VTE Risk Factors Age>40 No Mechanical VTE Prophylaxis d/t N/A MechProphylax Ordered No VTE Pharm Prophylaxis d/t Other (anticipated procedure)
[2017-06-01 08:01] LABS: ABSOLUTE BASOPHIL COUNT 0 /CUMM (0.0-0.2); WHITE BLOOD CELL COUNT 10.8 /CUMM (4.8-10.8)
[2017-06-01 08:22] LABS: ABSOLUTE EOSINOPHIL COUNT 0.3 /CUMM (0.0-0.7); ABSOLUTE GRANULOCYTE CT 7.9 /CUMM (1.4-6.5); ABSOLUTE LYMPH COUNT 1.4 /CUMM (1.2-3.4); ABSOLUTE MONOCYTE COUNT 1.2 /CUMM (0.10-0.60); BASOPHIL % 0.3 % (0.0-2.0); EOSINOPHIL % 3.1 % (0-5); GRANULOCYTE % 73.1 % (42.2-75.2); MEAN CORPUSCULAR HGB 30.4 PG (27.0-31.0); MEAN CORPUSCULAR HGB CONC 34.4 G/DL (33.0-37.0); MEAN CORPUSCULAR VOLUME 88.3 FL (80.0-94.0); MEAN PLATELET VOLUME 8.9 FL (7.4-10.4); PLATELET COUNT 183 /CUMM (130-400); RED BLOOD CELL CT 3.35 /CUMM (4.70-6.10)
[2017-06-01 08:30] LABS: HEMATOCRIT 29.6 % (42-52)
--- NOTE | 2017-06-01 08:45 | PN- Housestaff ---
[facility]: Subjective Follow-up For: Right femur intertrochanteric fracture POD 2 Tele-Events Since Last Visit: Sinus rhythm with heart rate between 5964 Subjective: No overnight events. Patient remained afebrile WBC and examined this morning he denied any chest pain, short of breath, nausea, vomiting, chills, fever, and dysuria. He is using 2L of oxygen maintaining saturation 90%. Patient reported that his pain is under control with pain medication Review of Systems Constitutional: Denies: chills, fever. EENTM: Reports: no symptoms. Cardiovascular: Denies: chest pain, palpitations. Respiratory: Denies: cough, short of breath, sputum production. Gastrointestinal: Denies: abdominal pain, constipation, diarrhea. Genitourinary: Reports: no symptoms. Musculoskeletal: Reports: see HPI. Neurological/Psychological: Reports: no symptoms. Objective Last 24 Hrs of Vital Signs/I&O Vital Signs Date Time Temp Pulse Resp B/P B/P Pulse O2 O2 Flow FiO2 Mean Ox Delivery Rate 06/01 0701 98.0 60 20 108/67 90 06/01 0000 Nasal 1.0L Cannula 05/31 2257 98.2 58 18 116/58 90 Nasal 2.0L Cannula 05/31 2229 61 126/60 05/31 2046 96 Nasal 1.0L Cannula 05/31 1600 Nasal 2.0L Cannula 05/31 1456 98.1 63 20 136/78 96 05/31 1320 93 Nasal 1.0L Cannula 05/31 1118 Nasal 4.0L Cannula 05/31 1116 140/70 05/31 1116 140/70 05/31 0922 140/70 Intake & Output 06/01 1600 06/01 0800 06/01 0000 Intake Total 0 420 Output Total 75 150 Balance -75 270 Intake, IV 20 Intake, Oral 0 400 Number 0 Bowel Movements Output, Urine 75 150 Patient 214 lb Weight Physical Exam General Appearance: Alert, Cooperative Skin Temp/Moisture Exam: Warm/Dry Sepsis Skin Exam (color): Normal for Ethnicity HEENT: Atraumatic, PERRLA, EOMI Neck: Supple Cardiovascular: Normal S1, Normal S2 Lungs: Clear to Auscultation Abdomen: Normal Bowel Sounds Neurological: Normal Speech, Normal Tone Extremities: No Edema, RIGHT HIP HAS DRESSING Assessment/Plan Assessment: Patient is a 76-year-old male with PMH significant for paroxysmal A. fib, coronary artery disease status post CABG, hypertension, cholangiocarcinoma was previously biliary stenting, recent CVA with carotid stenosis status post carotid endarterectomy, patient did have residual leg weakness however he had been working with physical therapy and was portably back to baseline, who presented to [facility] status post mechanical fall with right intertrochanteric femur fracture. Patient went for surgical repair of intertrochanteric right hip fracture on 05/30/17, he was monitored on the telemetry postoperatively floor due to significant cardiac history. Right intertrochanteric hip fracture S/P ORIF: -POD 2 -Continue to monitor on telemetry -Continue adequate pain control -Eliquis 2.5 mg twice a day. -Follow orthopedic recommendations -PT is recommending short-term rehabilitation Chronic medical problems: -Continue home medications except-continue TRC nebs for COPD DVT prophylaxis: Alps, on eliquis CODE STATUS: Full code Problem List: 1. Intertrochanteric fracture of right hip Pain Ratin Pain Location: none Pain Goal: Remain pain free Pain Plan: pain pathway Tomorrow's Labs & Rationales: Martha Fountain MD 06/01/17 1747: Attending MD Review Statement Attending Statement Attending MD Statement: examined this patient, discuss w/resident/PA/INTERPRETER DEAF, agreed w/resident/PA/INTERPRETER DEAF, reviewed EMR data (avail) Attending Assessment/Plan: Doing well, no complaints, stable for discharge home.
[2017-06-01 14:00] VITALS: BP 110/60
[2017-06-01 16:41] VITALS: BP 110/60
== END 2017-06-01 21:30 | DRG 481 ==
LOC: ERH 14:46 → 1NO 17:37 → ERHI 17:37 → EDBEDREQ 05-30 13:54 → ENRESERV 05-30 14:56 → ERHI 05-30 16:12 → 1NO 05-30 21:52 → ENPENDDIS 06-01 14:26 → 1NO 06-01 21:30
PROVIDERS: Dermatology; Internal Medicine; Physician Assistant; Student in an Organized Health Care Education/Training Program
PROC: 0QS606Z Reposition Right Upper Femur with Intramedullary Internal Fixation Device, Open Approach (ICD-10-PCS; principal; 2017-05-30)
DX: S72.141A Displaced intertrochanteric fracture of right femur, initial encounter for closed fracture (principal); C22.1 Intrahepatic bile duct carcinoma; I47.2 Ventricular tachycardia; I69.351 Hemiplegia and hemiparesis following cerebral infarction affecting right dominant side; J44.9 Chronic obstructive pulmonary disease, unspecified; I65.21 Occlusion and stenosis of right carotid artery; I48.0 Paroxysmal atrial fibrillation; I25.5 Ischemic cardiomyopathy; E11.9 Type 2 diabetes mellitus without complications; K21.9 Gastro-esophageal reflux disease without esophagitis; I25.10 Atherosclerotic heart disease of native coronary artery without angina pectoris; E78.5 Hyperlipidemia, unspecified; I10 Essential (primary) hypertension; W01.0XXA Fall on same level from slipping, tripping and stumbling without subsequent striking against object, initial encounter; Y92.009 Unspecified place in unspecified non-institutional (private) residence as the place of occurrence of the external cause; N40.0 Benign prostatic hyperplasia without lower urinary tract symptoms; Z88.5 Allergy status to narcotic agent; Z87.891 Personal history of nicotine dependence; Z91.013 Allergy to seafood; Z95.1 Presence of aortocoronary bypass graft; Z98.890 Other specified postprocedural states
CPT/HCPCS: 1NSP; ERO; 36415; 36592; 71045; 73502-RT; 82436; 87086; 93005; 93010; 96374; 97110-GO; 97161-GP; 97530-GO; J0131; J0690; J1100; J1650; J1885; J2405; J3490; J7042